=== PATIENT | male | born 1985 | race Caucasian/White ===

== ENCOUNTER 2018-05-26 10:32 | Emergency (ER) | payer OTHER ==
[~2018-05-26] VITALS: Ht 165.1 cm; Wt 100.3 kg
[2018-05-26 10:44] VITALS: Ht 165.1 cm; Wt 100.3 kg
[2018-05-26] MEDS ORDERED: ONDA8TAB14 PO (13:28)
[2018-05-26] MEDS ORDERED: ACET500C5 PO (13:28)
[2018-05-26 13:40] VITALS: BP 131/76; PULSE 71; RESP 16
--- NOTE | 2018-05-26 14:32 | ERD ---
ER Documentation Chief Complaint Chief Complaint fever and bodyache x 3 days HPI 32-year-old male presents with complaint of subjective fevers body aches, and 2 episodes of vomiting yesterday. States that he had a fevers and body aches for 3 days. He took Tylenol, last dose was yesterday. Denies any abdominal pain, diarrhea, constipation. ROS All systems reviewed and are negative except as per history of present illness. Medications Home Meds Active Scripts Ondansetron (Ondansetron Odt) 8 Mg Tab.rapdis, 8 MG PO Q6H PRN for NAUSEA AND/OR VOMITING, #10 TAB Prov:MATTHEWKATARZYNABLANQUITA RODRIGUEZ 05/26/18 Acetaminophen* (Tylophen*) 500 Mg Capsule, 2 CAP PO Q8H PRN for PAIN AND OR ELEVATED TEMP, #20 CAP Prov:BLANQUITA TORRES 05/26/18 Allergies Allergies: Coded Allergies: No Known Allergy (Unverified , 05/26/18) PMhx/Soc Medical and Surgical Hx: pt denies Medical Hx, pt denies Surgical Hx Hx Alcohol Use: No Hx Substance Use: No Hx Tobacco Use: No FmHx Family History: No diabetes, No coronary disease, No other Physical Exam Vitals Vital Signs Date Temp Pulse Resp B/P (MAP) Pulse Ox O2 O2 Flow FiO2 Time Delivery Rate 05/26/18 98.4 71 16 131/76 97 Room Air 13:40 (94) 05/26/18 98.4 99 17 149/82 100 10:44 (104) Physical Exam Const: No acute distress Head: Atraumatic Eyes: Normal Conjunctiva ENT: Normal External Ears, Nose and Mouth. Neck: Full range of motion. No meningismus. Resp: Clear to auscultation bilaterally Cardio: Regular rate and rhythm, no murmurs Abd: Soft, non tender, non distended. Normal bowel sounds. No McBurney's point tenderness. Patient able to jump up and down on exam. Skin: No petechiae or rashes Back: No midline or flank tenderness Ext: No cyanosis, or edema Neur: Awake and alert Psych: Normal Mood and Affect Procedures/MDM Patient's presentation is consistent with viral gastroenteritis. I have low suspicion for appendicitis due to patient history and exam, including normal abdominal exam, lack of McBurney's point tenderness and ability of patient to jump up and down on exam. I have low suspicion for volvulus or obstruction due patient history and exam, including lack of history of biliary emesis and normal physical exam. . I have low suspicion of invasive diarrhea due to patient history and exam, including lack of hematochezia. I have low suspicion for dehydration due to moist and pink mucous membranes, patients non lethargic state, , and normal cap refill. I have low suspicion of DKA based on patient history and exam,. I have low suspicion for adrenal crisis, AAA, mesenteric ischemia, pyelonephritis, cholecystitis, aortic dissection, ectopic, KS, pneumonia, acute pancreatitis, PID, or other emergent causes based on patient history and exam. Most likely diagnosis is viral gastritis. Based on these findings I do not feel that additional labs, imaging. or antibiotics are necessary. Patient discharged with Rx for Zofran and Tylenol. Patient was discharged with strict ER precautions. Patient was recommended to follow-up with PMD. All questions answered at discharge. Departure Diagnosis: Primary Impression: Gastroenteritis Condition: Stable Patient Instructions: Gastroenteritis, Viral (6Y-Adult), Vomiting (6Y-Adult) Referrals: [facility] YOU HAVE RECEIVED A MEDICAL SCREENING EXAM AND THE RESULTS INDICATE THAT YOU DO NOT HAVE A CONDITION THAT REQUIRES URGENT TREATMENT IN THE EMERGENCY DEPARTMENT. FURTHER EVALUATION AND TREATMENT OF YOUR CONDITION CAN WAIT UNTIL YOU ARE SEEN IN YOUR DOCTORS OFFICE WITHIN THE NEXT 1-2 DAYS. IT IS YOUR RESPONSIBILITY TO MAKE AN APPOINTMENT FOR FOLOW-UP CARE. IF YOU HAVE A PRIMARY DOCTOR --you should call your primary doctor and schedule an appointment IF YOU DO NOT HAVE A PRIMARY DOCTOR YOU CAN CALL OUR PHYSICIAN REFERRAL HOTLINE AT IF YOU CAN NOT AFFORD TO SEE A PHYSICIAN YOU CAN CHOSE FROM THE FOLLOWING [facility] [address] [facility] [address] [facility] [facility] [address] [facility] [address] [facility] [address] [facility]. [facility]. [address] Additional Instructions: FOLLOW UP WITH YOUR PRIMARY CARE PHYSICIAN TOMORROW.Return to this facility if you are not improving as expected. BLANQUITA TORRES May 26, 2018 14:32
== END 2018-05-26 13:40 | disposition home or self-care (01) ==
LOC: FTE 10:32
DX: K52.9 Noninfective gastroenteritis and colitis, unspecified (principal)
CPT/HCPCS: 99283

== ENCOUNTER 2018-09-21 09:05 | Inpatient (IN) | payer OTHER ==
[~2018-09-21] VITALS: Ht 170.2 cm; Wt 97.5 kg
[~2018-09-21 09:05] MED LIST: ACET500C5 PO; ASA400 PO; BUDE3CAP PO; CYCL10TA7 PO; DOXY100T20 PO; FER325 PO; IBUP-1542 PO; ONDA8TAB14 PO; PANT40TA3 PO; WORK NOTE
[2018-09-21] MEDS ORDERED: SOD CHLORIDE 0.9% 1,000 ML IV STA (09:24)
[2018-09-21] MEDS ORDERED: PANTOPRAZOLE IV 80 MG in SOD CHLORIDE 0.9% 100 ML IV STA (10:55)
[2018-09-21] MEDS ORDERED: PANTOPRAZOLE IV 80 MG in SOD CHLORIDE 0.9% 100 ML IVPB STA (10:55)
--- NOTE | 2018-09-21 11:10 | ERD ---
ER Documentation Chief Complaint Chief Complaint feels weak, sick and appears pale, diarrhea x 1 week HPI Patient is a history of gastric ulcers requiring transfusion. Patient has recently not been taking any antacids and does take intermittent ibuprofen but not daily ibuprofen for the past 5 days patient has been feeling more weak. No shortness of breath no chest pain. Has had diarrhea for the past 2 days. Denies any blood in his stools denies any melena. No nausea or vomiting. No fevers or chills. ROS All systems reviewed and are negative except as per history of present illness. Medications Home Meds Active Scripts Ondansetron (Ondansetron Odt) 8 Mg Tab.rapdis, 8 MG PO Q6H PRN for NAUSEA AND/OR VOMITING, #10 TAB Prov:BLANQUITA TORRES 05/26/18 Acetaminophen* (Tylophen*) 500 Mg Capsule, 2 CAP PO Q8H PRN for PAIN AND OR ELEVATED TEMP, #20 CAP Prov:BLANQUITA TORRES 05/26/18 Allergies Allergies: Coded Allergies: No Known Allergy (Unverified , 05/26/18) PMhx/Soc Medical and Surgical Hx: pt denies Surgical Hx Hx Miscellaneous Medical Probl: Yes (Hx blood transfusion) Hx Alcohol Use: No Hx Substance Use: No Hx Tobacco Use: No Smoking Status: Never smoker Physical Exam Vitals Vital Signs Date Temp Pulse Resp B/P (MAP) Pulse Ox O2 O2 Flow FiO2 Time Delivery Rate 09/21/18 98.8 64 24 118/62 99 11:02 (80) 09/21/18 99.4 112 24 124/88 99 09:08 (100) Physical Exam Const: No acute distress. Appears pale Head: Atraumatic Eyes: Normal Conjunctiva ENT: Normal External Ears, Nose and Mouth. Neck: Full range of motion. No meningismus. Resp: Clear to auscultation bilaterally Cardio: Regular rate and rhythm, no murmurs Abd: Soft, non tender, non distended. Normal bowel sounds Skin: No petechiae or rashes Back: No midline or flank tenderness Ext: No cyanosis, or edema Neur: Awake and alert Psych: Normal Mood and Affect Result Diagram: 09/21/18 0939 09/21/18 0901 Results 24 hrs Laboratory Tests Test 09/21/18 09:38 7/31/19 09:39 09/21/18 09:41 Sodium Level 141 mmol/L Potassium Level 3.6 mmol/L Chloride Level 105 mmol/L Carbon Dioxide Level 27 mmol/L Anion Gap 9 Blood Urea Nitrogen 6 mg/dl Creatinine 0.90 mg/dl Est Glomerular Filtrat > 60 mL/min Rate mL/min Glucose Level 105 mg/dl Calcium Level 9.0 mg/dl Total Bilirubin 0.6 mg/dl Direct Bilirubin 0.00 mg/dl Indirect Bilirubin 0.6 mg/dl Aspartate Amino 15 IU/L Transf (AST/SGOT) Alanine 10 IU/L Aminotransferase (ALT/SGPT) Alkaline Phosphatase 60 IU/L Total Protein 6.9 g/dl Albumin 3.7 g/dl Globulin 3.20 g/dl Albumin/Globulin Ratio 1.15 Lipase 1406 U/L White Blood Count 10.7 10^3/ul Red Blood Count 4.04 10^6/ul Hemoglobin 5.0 g/dl Hematocrit 21.0 % Mean Corpuscular Volume 52.0 fl Mean Corpuscular Hemoglobin 12.4 pg Mean Corpuscular 23.8 g/dl Hemoglobin Concent Red Cell Distribution Width 25.4 % Platelet Count 548 10^3/UL Mean Platelet Volume 8.2 fl Immature Granulocytes % 0.300 % Neutrophils % 68.5 % Segmented Neutrophils % (Manual) 66 % Band Neutrophils % (Manual) 1 % Lymphocytes % 15.3 % Lymphocytes % (Manual) 17 % Monocytes % 7.5 % Monocytes % (Manual) 5 % Eosinophils % 7.9 % Eosinophils % (Manual) 9 % Basophils % 0.5 % Basophils % (Manual) 1 % Metamyelocytes % (manual) 1 % Nucleated Red Blood Cells % 1 % Immature Granulocytes # 0.030 10^3/ul Neutrophils # 7.3 10^3/ul Neutrophils # (Manual) 7.1 10^3/ul Band Neutrophils # 0.1 10^3/ul Lymphocytes (Manual) 1.8 10^3/ul Lymphocytes # 1.6 10^3/ul Monocytes # 0.8 10^3/ul Monocytes # (Manual) 0.5 10^3/ul Eosinophils # 0.8 10^3/ul Basophils # 0.1 10^3/ul Basophils # (Manual) 0.1 10^3/ul Metamyelocytes # 0.1 10^3/ul Nucleated Red Blood Cells # 0.1 10^3/ul Pathologist Review (Hematology) YES Platelet Estimate INCREASED Giant Platelets 1 % Polychromasia 1+ Hypochromasia 3+ Poikilocytosis 2+ Anisocytosis 3+ Microcytosis 3+ Tear Drop Cells 1+ Elliptocytes 1+ Schistocytes 1+ Urine Color YELLOW Urine Clarity SLIGHTLY CLOUDY Urine pH 6.0 Urine Specific [place] 1.016 Urine Ketones NEGATIVE mg/dL Urine Nitrite NEGATIVE mg/dL Urine Bilirubin NEGATIVE mg/dL Urine Urobilinogen NEGATIVE mg/dL Urine Leukocyte Esterase NEGATIVE Nancy/ul Urine Microscopic RBC 1 /HPF Urine Microscopic WBC 3 /HPF Urine Mucus MANY /HPF Urine Hemoglobin NEGATIVE mg/dL Urine Glucose NEGATIVE mg/dL Urine Total Protein NEGATIVE mg/dl Current Medications Medications Dose Sig/Clara Start Time Status Last (Trade) Ordered Route PRN Stop Time Admin Dose Reason Admin Sodium 1,000 ml @ Q1H STAT 09/21/18 DC 09/21/18 Chloride 1,000 mls/hr IV 09:24 09:40 09/21/18 10:23 Pantoprazole 100 ml @ ONCE STAT 09/21/18 80 mg/Sodium 400 mls/hr IVPB 10:55 Chloride 09/21/18 11:09 Pantoprazole 100 ml @ ONCE STAT 09/21/18 80 mg/Sodium 10 mls/hr IV 10:55 Chloride 09/21/18 20:54 Procedures/MDM Patient presenting with sensation of feeling feeling weak without any chest pain. Labs show acute anemia hemoglobin of 5. Patient is hemodynamically stable. Concerning for upper GI bleed given history of gastric ulcers. Will transfuse 2 units, give Protonix IV bolus and drip. Will admit for endoscopy an d further evaluation. Low suspicion for cirrhosis given history and exam. Low suspicion for mesenteric ischemia, or intra-abdominal infection. Low suspicion for cardiopulmonary cause of symptoms. Departure Diagnosis: Primary Impression: Anemia Patient Instructions: Anemia Referrals: [facility] YOU HAVE RECEIVED A MEDICAL SCREENING EXAM AND THE RESULTS INDICATE THAT YOU DO NOT HAVE A CONDITION THAT REQUIRES URGENT TREATMENT IN THE EMERGENCY DEPARTMENT. FURTHER EVALUATION AND TREATMENT OF YOUR CONDITION CAN WAIT UNTIL YOU ARE SEEN IN YOUR DOCTORS OFFICE WITHIN THE NEXT 1-2 DAYS. IT IS YOUR RESPONSIBILITY TO MAKE AN APPOINTMENT FOR FOLOW-UP CARE. IF YOU HAVE A PRIMARY DOCTOR --you should call your primary doctor and schedule an appointment IF YOU DO NOT HAVE A PRIMARY DOCTOR YOU CAN CALL OUR PHYSICIAN REFERRAL HOTLINE AT IF YOU CAN NOT AFFORD TO SEE A PHYSICIAN YOU CAN CHOSE FROM THE FOLLOWING [facility] [address] [facility] [address] [facility] [address] [facility] [address] [facility] [address] [facility]. [facility]. [address] ADILENE ROSS MD Sep 21, 2018 11:10
[2018-09-21] MEDS ORDERED: ONDANSETRON 4 MG INJ IV PRN ×2 (13:00→14:00)
[2018-09-21] MEDS ORDERED: ACETAMINOPHEN 325 MG TAB PO PRN ×2 (13:00→14:00)
--- NOTE | 2018-09-21 13:49 | HP ---
Date/Time of Note Date/Time of Note DATE: 09/21/18 TIME: 13:44 Assessment/Plan VTE Prophylaxis SCD applied (from Nsg): Yes Pharmacological prophylaxis: NA/contraindicated Pharm contraindication: low risk/ambulating Lines/Catheters IV Catheter Type (from Nrsg): Saline Lock Assessment/Plan Hospital Course SUBJECTIVE: Lying in bed comfortably. Complains of diarrhea. No abdominal pain, nausea, vomiting, fevers, chills. No overt GI bleeding signs. OBJECTIVE: Vital signs-see below PHYSICAL EXAM: Constitutional: Adequately built,not in acute distress. HEENT: Head atraumatic and normocephalic. Eyes: Extraocular muscles intact. Anicteric sclerae. Pupils equal bilaterally, reactive to light. NECK: Supple without lymph node. CHEST: Clear and good breath sounds equally. No wheezing. No rhonchi. HEART: S1, S2. Regular rate and rhythm. ABDOMEN: Soft/non tender with no rebound tenderness. Bowel sounds were present. EXTREMITIES: No cyanosis, clubbing or edema. NEUROLOGIC: Alert and oriented x3. No focal deficit. No sensory deficit. PSYCHOSOCIAL: No signs of depression. INTEGUMENTARY: No open wounds. ASSESSMENT AND PLAN:33 yo w/no pmh admitted with generalized weakness x5 days followed by diarrhea x2 days, found to have severe anemia and elevated lipase... Symptomatic anemia:Differential diagnoses includes: decreased production, sequestration, destruction/loss. At this time most concerning is severe iron deficiency versus occult GI blood loss given the patients microcytic indices. Plan: Transfuse 2 units PRBC. Check FE studies and start iron supplementation accordingly stool OB Follow serial HCT (check daily) GI consult as needed Empiric PPI ?Pancreatitis -Patient has elevated lipase. No abdominal pain. -Go ahead and obtain a CT abdomen and pelvis -N.p.o. -IV fluids Diarrhea -Rule out infectious diarrhea versus others -Stool studies -No fevers or leukocytosis, as such we will hold off to antimicrobials. DVT prophylaxis: SCDs PUD prophylaxis: PPI Rest of the management depend on hospital course. Approximately 60 m spent on this history and physical. Patient was seen in collaboration with Dr. Bee. Result Diagram: 09/21/18 0939 09/21/18 0938 Results 24hrs Laboratory Tests Test 09/21/18 09:38 09/21/18 09:39 09/21/18 09:41 Sodium Level 141 Potassium Level 3.6 Chloride Level 105 Carbon Dioxide Level 27 Anion Gap 9 Blood Urea Nitrogen 6 L Creatinine 0.90 Est Glomerular Filtrat > 60 Rate mL/min Glucose Level 105 Calcium Level 9.0 Total Bilirubin 0.6 Direct Bilirubin 0.00 Indirect Bilirubin 0.6 Aspartate Amino 15 Transf (AST/SGOT) Alanine 10 L Aminotransferase (ALT/SGPT) Alkaline Phosphatase 60 Total Protein 6.9 Albumin 3.7 Globulin 3.20 Albumin/Globulin Ratio 1.15 Lipase 1406 H White Blood Count 10.7 Red Blood Count 4.04 L Hemoglobin 5.0 *L Hematocrit 21.0 L Mean Corpuscular Volume 52.0 L Mean Corpuscular Hemoglobin 12.4 L Mean Corpuscular 23.8 L Hemoglobin Concent Red Cell Distribution Width 25.4 H Platelet Count 548 H Mean Platelet Volume 8.2 Immature Granulocytes % 0.300 Neutrophils % 68.5 Segmented Neutrophils 66 % (Manual) Band Neutrophils % (Manual) 1 Lymphocytes % 15.3 Lymphocytes % (Manual) 17 Monocytes % 7.5 Monocytes % (Manual) 5 Eosinophils % 7.9 H Eosinophils % (Manual) 9 H Basophils % 0.5 Basophils % (Manual) 1 Metamyelocytes % (manual) 1 H Nucleated Red Blood Cells % 1 H Immature Granulocytes # 0.030 Neutrophils # 7.3 Neutrophils # (Manual) 7.1 Band Neutrophils # 0.1 Lymphocytes (Manual) 1.8 Lymphocytes # 1.6 Monocytes # 0.8 Monocytes # (Manual) 0.5 Eosinophils # 0.8 H Basophils # 0.1 Basophils # (Manual) 0.1 H Metamyelocytes # 0.1 H Nucleated Red Blood Cells # 0.1 H Pathologist YES Review (Hematology) Platelet Estimate INCREASED Giant Platelets 1 H Polychromasia 1+ Hypochromasia 3+ Poikilocytosis 2+ Anisocytosis 3+ Microcytosis 3+ Tear Drop Cells 1+ Elliptocytes 1+ Schistocytes 1+ Urine Color YELLOW Urine Clarity SLIGHTLY CLOUDY A Urine pH 6.0 Urine Specific [place] 1.016 Urine Ketones NEGATIVE Urine Nitrite NEGATIVE Urine Bilirubin NEGATIVE Urine Urobilinogen NEGATIVE Urine Leukocyte Esterase NEGATIVE Urine Microscopic RBC 1 Urine Microscopic WBC 3 Urine Mucus MANY A Urine Hemoglobin NEGATIVE Urine Glucose NEGATIVE Urine Total Protein NEGATIVE HPI/ROS Admit Date/Time Admit Date/Time Hx of Present Illness This is a 33-year-old male with a history of gastroesophageal reflux disease, presented to the emergency room with generalized weakness x5-day duration with intermittent nonbloody diarrhea. Patient denied nausea, vomiting, abdominal pain, loss of appetite, hematochezia, hematemesis, hemoptysis, melena . Patient also denied chest pain, shortness of breath, palpitation, dizziness, loss of consciousness, numbness, tingling, fever, chills, recent travel or contact with sick people. In the emergency room, patient's vital signs stable except for initially elevated pulse rate 112 which then normalized to 60s. Labs showed hemoglobin 5.0, hematocrit 21.0 with microcytic indicis, platelet 548 and lipase 1406. In ER, patient was given IV fluids and 2 units of PRBC has been ordered. ROS A 12 point review of system was assessed and is negative other than what is men tioned in the HPI. PMH/Family/Social Past Medical History See HPI Medications Current Medications Pantoprazole 80 mg/Sodium Chloride 100 ml @ 10 mls/hr ONCE STAT IV Last administered on 09/21/18at 12:00; Admin Dose 10 MLS/HR; Start 09/21/18 at 10:55; Stop 09/21/18 at 20:54 Ondansetron HCl (Zofran Inj) 4 mg ER BRIDGE PRN IV NAUSEA/VOMITING; Start 09/21/18 at 13:00; Stop 09/22/18 at 12:59 Acetaminophen (Tylenol Tab) 650 mg ER BRIDGE PRN PO .MILD PAIN 1-3 OR TEMP; Start 09/21/18 at 13:00; Stop 09/22/18 at 12:59 Coded Allergies: No Known Allergy (Unverified , 09/21/18) Past Surgical History None Social History Denied history of alcohol, smoking or illicit drug use Smoking Status: Never smoker Exam/Review of Systems Vital Signs Vitals Vital Signs Date Temp Pulse Resp B/P (MAP) Pulse Ox O2 O2 Flow FiO2 Time Delivery Rate 09/21/18 98.3 74 24 112/58 99 Room Air 13:20 (76) RON PIERCE NP Sep 21, 2018 13:49
[2018-09-21] MEDS ORDERED: NACL 0.9% 3 ML SYG IV SCH (14:00)
--- NOTE | 2018-09-21 16:25 | CONS ---
Assessment/Plan Assessment/Plan Hospital Course (Demo Recall) Summary Assessment and Plan: Assessment: Severe iron deficiency anemia Diarrhea Weakness secondary to above Thrombocytosis likely reactive Elevated lipase Excessive weight loss- 80+ lbs in 7 months Plan: Clear liquid diet ESR/CRP- given sx- consider IBD? Monitor H/H transfuse as needed Monitor Lipase Allow Hgb to improve with plan to prep tomorrow for EGD/colonoscopy Wednesday Endoscopy - risks/benefits/alternatives/indications of procedure and sedation/anesthesia discussed with patient who states understanding and gives informed consent to proceed. Patient seen in collaboration with Dr. Dial CC: KIMANI DIAL MD ; Consultation Date/Type/Reason Admit Date/Time Date/Time of Note DATE: 09/21/18 TIME: 16:14 Hx of Present Illness This is a 33-year-old male with past medical history of anemia diagnosed about 1 to 2 years ago who presented to the hospital with complaints of generalized weakness and watery diarrhea going up to 4-5 episodes per day for the past week. Work-up hematology shows severe microcytic anemia with a hemoglobin of 5.0 he is status post 2 units packed RBCs and a chemistry panel shows relatively normal LFTs, lipase is elevated at 1406 and an iron panel shows severe iron deficiency. GI has been consulted for further evaluation regarding anemia evaluation p atient denies nausea/vomiting or abdominal pain. Dates he was previously evaluated about 1 to 2 years ago he states he is never had an upper endoscopy or colonoscopy. With further evaluation patient denies any overt signs of GI bleed including melena, hematochezia or hematemesis patient states he has lost about 80 pounds in the past 7 months although he contributed to a change in diet. At time of evaluation patient denies nausea/vomiting or abdominal pain. Given age and symptoms one must rule out inflammatory bowel disease i.e. Crohn's disease we will order CRP and ESR about hemoglobin to improve her transfusions and plan to proceed with endoscopic evaluation on Wednesday with EGD and colonoscopy. Past Medical History Home Meds Discontinued Scripts Ondansetron (Ondansetron Odt) 8 Mg Tab.rapdis, 8 MG PO Q6H PRN for NAUSEA AND/OR VOMITING, #10 TAB Prov:BLANQUITA TORRES 05/26/18 Acetaminophen* (Tylophen*) 500 Mg Capsule, 2 CAP PO Q8H PRN for PAIN AND OR ELEVATED TEMP, #20 CAP Prov:BLANQUITA TORRES 05/26/18 Medications Current Medications Pantoprazole 80 mg/Sodium Chloride 100 ml @ 10 mls/hr ONCE STAT IV Last administered on 09/21/18at 12:00; Admin Dose 10 MLS/HR; Start 09/21/18 at 10:55; Stop 09/21/18 at 20:54 IV Flush (NS 3 ml) 3 ml PER PROTOCOL IV ; Start 09/21/18 at 14:00 Ondansetron HCl (Zofran Inj) 4 mg Q6H PRN IV NAUSEA/VOMITING; Start 09/21/18 at 14:00 Acetaminophen (Tylenol Tab) 650 mg Q6H PRN PO .PAIN 1-3 OR TEMP; Start 09/21/18 at 14:00 Pantoprazole (Protonix Iv) 40 mg BID@06,18 IV ; Start 09/21/18 at 18:00 Sodium Chloride 1,000 ml @ 80 mls/hr [id number] IV ; Start 09/21/18 at 14:00 Ferric Sodium Gluconate Complex 125 mg/Sodium Chloride 110 ml @ 110 mls/hr DAILY@1300 IVPB ; Start 09/22/18 at 13:00; Stop 09/26/18 at 13:59 Ferric Sodium Gluconate Complex 125 mg/Sodium Chloride 100 ml @ 100 mls/hr ONCE ONCE IVPB ; Start 09/21/18 at 16:30; Stop 09/21/18 at 17:29 Allergies: Coded Allergies: No Known Allergy (Unverified , 09/21/18) Social History Smoking Status: Never smoker Exam/Review of Systems Exam Vitals Vital Signs Date Temp Pulse Resp B/P (MAP) Pulse Ox O2 O2 Flow FiO2 Time Delivery Rate 09/21/18 98.4 86 17 118/78 99 Room Air 14:30 (91) Exam PHYSICAL EXAMINATION: GENERAL: Pale, alert & oriented x 3, in no acute distress SKIN: No lesions HEAD: Normocephalic, atraumatic, no tenderness. EYES: Pupils equal reactive to light and accommodation, no discharge. EARS/NOSE AND THROAT: Ears normal, nose normal. NECK: Supple, no masses. CHEST: Inspection within normal limits. CARDIOVASCULAR: Heart: Regular rate and rhythm, no murmurs, gallops or rubs. Peripheral pulses present within normal limits, no cyanosis, clubbing or edemas. No pulsatile abdominal mass RESPIRATORY: Lungs clear to auscultation GASTROINTESTINAL AND LIVER: Abdomen: Soft, non tenderness, non-distended, no hernias, no masses, no organomegaly, no ascites, no guarding, no rebound tenderness, normoactive bowel sounds. Rectal: Deferred EXTREMITIES: No cyanosis, clubbing or edema. Results Result Diagram: 09/21/18 0939 09/21/18 0938 Results 24hrs Laboratory Tests Test 09/21/18 09:36 09/21/18 09:38 09/21/18 09:39 09/21/18 09:41 Hemoglobin A1c Iron Level 10 L Total Iron 413 Binding Capacity Percent Iron 2 L Saturation Triglycerides 91 Level Cholesterol Level 98 L LDL Cholesterol, 57 Calculated HDL Cholesterol 23 L Cholesterol/HDL 4.2 Ratio Sodium Level 141 Potassium Level 3.6 Chloride Level 105 Carbon Dioxide 27 Level Anion Gap 9 Blood Urea 6 L Nitrogen Creatinine 0.90 Est Glomerular > 60 Filtrat Rate mL/min Glucose Level 105 Calcium Level 9.0 Total Bilirubin 0.6 Direct Bilirubin 0.00 Indirect 0.6 Bilirubin Aspartate Amino 15 Transf (AST/SGOT) Alanine 10 L Aminotransferase (ALT/SGPT) Alkaline 60 Phosphatase Total Protein 6.9 Albumin 3.7 Globulin 3.20 Albumin/Globulin 1.15 Ratio Lipase 1406 H White Blood Count 10.7 Red Blood Count 4.04 L Hemoglobin 5.0 *L Hematocrit 21.0 L Mean Corpuscular 52.0 L Volume Mean Corpuscular 12.4 L Hemoglobin Mean Corpuscular 23.8 L Hemoglobin Concen t Red Cell 25.4 H Distribution Width Platelet Count 548 H Mean Platelet 8.2 Volume Immature 0.300 Granulocytes % Neutrophils % 68.5 Segmented 66 Neutrophils % (Manual) Band Neutrophils 1 % (Manual) Lymphocytes % 15.3 Lymphocytes % 17 (Manual) Monocytes % 7.5 Monocytes % 5 (Manual) Eosinophils % 7.9 H Eosinophils % 9 H (Manual) Basophils % 0.5 Basophils % 1 (Manual) Metamyelocytes % 1 H (manual) Nucleated Red 1 H Blood Cells % Immature 0.030 Granulocytes # Neutrophils # 7.3 Neutrophils # 7.1 (Manual) Band Neutrophils 0.1 # Lymphocytes 1.8 (Manual) Lymphocytes # 1.6 Monocytes # 0.8 Monocytes # 0.5 (Manual) Eosinophils # 0.8 H Basophils # 0.1 Basophils # 0.1 H (Manual) Metamyelocytes # 0.1 H Nucleated Red 0.1 H Blood Cells # Pathologist YES Review (Hematolog y) Platelet Estimate INCREASED Giant Platelets 1 H Polychromasia 1+ Hypochromasia 3+ Poikilocytosis 2+ Anisocytosis 3+ Microcytosis 3+ Tear Drop Cells 1+ Elliptocytes 1+ Schistocytes 1+ Amylase Level 236 H Urine Color YELLOW Urine Clarity SLIGHTLY CLOUDY A Urine pH 6.0 Urine Specific 1.016 [place] Urine Ketones NEGATIVE Urine Nitrite NEGATIVE Urine Bilirubin NEGATIVE Urine NEGATIVE Urobilinogen Urine Leukocyte NEGATIVE Esterase Urine Microscopic 1 RBC Urine Microscopic 3 WBC Urine Mucus MANY A Urine Hemoglobin NEGATIVE Urine Glucose NEGATIVE Urine Total NEGATIVE Protein Medications Medication Current Medications Pantoprazole 80 mg/Sodium Chloride 100 ml @ 10 mls/hr ONCE STAT IV Last administered on 09/21/18at 12:00; Admin Dose 10 MLS/HR; Start 09/21/18 at 10:55; Stop 09/21/18 at 20:54 IV Flush (NS 3 ml) 3 ml PER PROTOCOL IV ; Start 09/21/18 at 14:00 Ondansetron HCl (Zofran Inj) 4 mg Q6H PRN IV NAUSEA/VOMITING; Start 09/21/18 at 14:00 Acetaminophen (Tylenol Tab) 650 mg Q6H PRN PO .PAIN 1-3 OR TEMP; Start 09/21/18 at 14:00 Pantoprazole (Protonix Iv) 40 mg BID@06,18 IV ; Start 09/21/18 at 18:00 Sodium Chloride 1,000 ml @ 80 mls/hr [id number] IV ; Start 09/21/18 at 14:00 Ferric Sodium Gluconate Complex 125 mg/Sodium Chloride 110 ml @ 110 mls/hr DAILY@1300 IVPB ; Start 09/22/18 at 13:00; Stop 09/26/18 at 13:59 Ferric Sodium Gluconate Complex 125 mg/Sodium Chloride 100 ml @ 100 mls/hr ONCE ONCE IVPB ; Start 09/21/18 at 16:30; Stop 09/21/18 at 17:29 PAL HOOPER Sep 21, 2018 16:25
[2018-09-21] MEDS ORDERED: SOD FERRIC GLUC COMPLX 125 MG in SOD CHLORIDE 0.9% 100 ML IVPB ONE (16:30)
[2018-09-21 17:29] VITALS: BP 118/66; PULSE 96; RESP 18
[2018-09-21] MEDS: SOD CHLORIDE 0.9% 1,000 ML IV SCH (17:30)
[2018-09-21 17:38] VITALS: Ht 170.2 cm; Wt 97.5 kg
[2018-09-21] MEDS: PANTOPRAZOLE 40 MG INJ IV SCH (17:56)
[2018-09-21 19:46] VITALS: BP 119/71; PULSE 93; RESP 20
[2018-09-21 20:00] VITALS: BP 119/71; PULSE 93; RESP 20
[2018-09-21 23:48] VITALS: BP 118/72; PULSE 92; RESP 20
[2018-09-22] VITALS: BP 118/72; PULSE 92; RESP 20
[2018-09-22] MEDS: SOD CHLORIDE 0.9% 1,000 ML IV SCH ×2 (02:30→15:04)
[2018-09-22 03:55] VITALS: BP 109/65; PULSE 89; RESP 20
[2018-09-22] MEDS: PANTOPRAZOLE 40 MG INJ IV SCH ×2 (05:59→18:10)
[2018-09-22 07:34] VITALS: BP 118/63; PULSE 78; RESP 18
[2018-09-22] MEDS ORDERED: SOD CHLORIDE 0.9% 100 ML ONE (09:04)
[2018-09-22] MEDS ORDERED: IOHEXOL 300MG/ML 150 ML BTL ONE (09:04)
--- NOTE | 2018-09-22 11:00 | PN ---
Date/Time of Note Date/Time of Note DATE: 09/22/18 TIME: 10:57 Assessment/Plan VTE Prophylaxis [place] [facility] [place] risk: 1 SCD applied [place] [facility] [place] No SCD contraindicated: low risk/ambulating Pharmacological prophylaxis: NA/contraindicated Pharm contraindication: low risk/ambulating Lines/Catheters IV Catheter Type (from [facility]): Peripheral IV Urinary Cath still in place: No Assessment/Plan Hospital Course SUBJECTIVE: No acute events. OBJECTIVE: Vital signs-see below PHYSICAL EXAM: Constitutional: Adequately built,not in acute distress. HEENT: Head atraumatic and normocephalic. Eyes: Extraocular muscles intact. Anicteric sclerae. Pupils equal bilaterally, reactive to light. NECK: Supple without lymph node. CHEST: Clear and good breath sounds equally. No wheezing. No rhonchi. HEART: S1, S2. Regular rate and rhythm. ABDOMEN: Soft/non tender with no rebound tenderness. Bowel sounds were present. EXTREMITIES: No cyanosis, clubbing or edema. NEUROLOGIC: Alert and oriented x3. No focal deficit. No sensory deficit. PSYCHOSOCIAL: No signs of depression. INTEGUMENTARY: No open wounds. ASSESSMENT AND PLAN:33 yo w/no pmh admitted with generalized weakness x5 days followed by diarrhea x2 days, found to have severe anemia and elevated lipase... Symptomatic anemia:Differential diagnoses includes: decreased production, sequestration, destruction/loss. At this time most concerning is severe iron deficiency versus occult GI blood loss given the patients microcytic indices. -s/p 2 units PRBC-with improved H&H -FE studies noted and on IV Ferrlecit -stool OB-pending -Follow serial HCT (check daily) -Empiric PPI -Follow-up EGD/colonoscopy findings. Pancreatitis -pending CT abdomen and pelvis -cont. N.p.o, IV fluids Diarrhea,likely from pancreatitis? -Rule out infectious diarrhea versus others -f/u Stool studies -No fevers or leukocytosis, as such we will hold off to antimicrobials. DVT prophylaxis: SCDs PUD prophylaxis: PPI Disposition: Follow-up EGD/colonoscopy findings. Follow-up stool studies. Transfer patient to medical surgical floor. Patient was seen in collaboration with Dr. Bee. Result Diagram: 09/22/18 0608 09/22/18 0607 Results 24hrs Laboratory Tests Test 09/21/18 18:41 09/21/18 18:46 09/22/18 06:07 09/22/18 06:08 Hemoglobin 6.1 #*L 7.5 #L Hematocrit 23.5 L 26.8 L Erythrocyte 35 H Sedimentation Rate C-Reactive Protein 6.7 H Sodium Level 142 Potassium Level 3.8 Chloride Level 108 Carbon Dioxide Level 24 Anion Gap 10 Blood Urea Nitrogen 5 L Creatinine 0.83 Est Glomerular Filtrat > 60 Rate mL/min Glucose Level 85 Calcium Level 8.4 Magnesium Level 2.2 Total Bilirubin 0.8 Direct Bilirubin 0.00 Indirect Bilirubin 0.8 Aspartate Amino 25 # Transf (AST/SGOT) Alanine 21 Aminotransferase (ALT/ SGPT) Alkaline Phosphatase 57 Total Protein 6.4 Albumin 3.2 L Globulin 3.20 Albumin/Globulin Ratio 1.00 Lipase 1776 H White Blood Count 8.1 # Red Blood Count 4.33 L Mean Corpuscular 61.9 L Volume Mean Corpuscular 17.3 #L Hemoglobin Mean Corpuscular 28.0 L Hemoglobin Concent Red Cell Distribution Width Platelet Count 428 #H Mean Platelet Volume Immature Granulocytes 0.100 % Neutrophils % 58.1 Lymphocytes % 21.5 Monocytes % 8.1 Eosinophils % 11.5 H Basophils % 0.7 Nucleated Red Blood 0.9 H Cells % Immature Granulocytes 0.010 # Neutrophils # 4.7 Lymphocytes # 1.7 Monocytes # 0.7 Eosinophils # 0.9 H Basophils # 0.1 Nucleated Red Blood 0.1 H Cells # Exam/Review of Systems Exam Vitals Vital Signs Date Temp Pulse Resp B/P (MAP) Pulse Ox O2 O2 Flow FiO2 Time Delivery Rate 09/22/18 98.3 78 18 118/63 97 Room Air 07:34 (81) Intake and Output 09/21/18 09/21/18 09/22/18 1515:00 23:00 07:00 IntakeIntake Total 1000 ml 100 ml 957 ml BalanceBalance 1000 ml 100 ml 957 ml Results Results 24hrs Laboratory Tests Test 09/21/18 18:41 09/21/18 18:46 09/22/18 06:07 09/22/18 06:08 Hemoglobin 6.1 #*L 7.5 #L Hematocrit 23.5 L 26.8 L Erythrocyte 35 H Sedimentation Rate C-Reactive Protein 6.7 H Sodium Level 142 Potassium Level 3.8 Chloride Level 108 Carbon Dioxide Level 24 Anion Gap 10 Blood Urea Nitrogen 5 L Creatinine 0.83 Est Glomerular Filtrat > 60 Rate mL/min Glucose Level 85 Calcium Level 8.4 Magnesium Level 2.2 Total Bilirubin 0.8 Direct Bilirubin 0.00 Indirect Bilirubin 0.8 Aspartate Amino 25 # Transf (AST/SGOT) Alanine 21 Aminotransferase (ALT/ SGPT) Alkaline Phosphatase 57 Total Protein 6.4 Albumin 3.2 L Globulin 3.20 Albumin/Globulin Ratio 1.00 Lipase 1776 H White Blood Count 8.1 # Red Blood Count 4.33 L Mean Corpuscular 61.9 L Volume Mean Corpuscular 17.3 #L Hemoglobin Mean Corpuscular 28.0 L Hemoglobin Concent Red Cell Distribution Width Platelet Count 428 #H Mean Platelet Volume Immature Granulocytes 0.100 % Neutrophils % 58.1 Lymphocytes % 21.5 Monocytes % 8.1 Eosinophils % 11.5 H Basophils % 0.7 Nucleated Red Blood 0.9 H Cells % Immature Granulocytes 0.010 # Neutrophils # 4.7 Lymphocytes # 1.7 Monocytes # 0.7 Eosinophils # 0.9 H Basophils # 0.1 Nucleated Red Blood 0.1 H Cells # Medications Medication Current Medications IV Flush (NS 3 ml) 3 ml PER PROTOCOL IV ; Start 09/21/18 at 14:00 Ondansetron HCl (Zofran Inj) 4 mg Q6H PRN IV NAUSEA/VOMITING; Start 09/21/18 at 14:00 Acetaminophen (Tylenol Tab) 650 mg Q6H PRN PO .PAIN 1-3 OR TEMP; Start 09/21/18 at 14:00 Pantoprazole (Protonix Iv) 40 mg BID@06,18 IV Last administered on 09/22/18at 05:59; Admin Dose 40 MG; Start 09/21/18 at 18:00 Sodium Chloride 1,000 ml @ 80 mls/hr [id number] IV Last administered on 09/21/18at 17:30; Admin Dose 80 MLS/HR; Start 09/21/18 at 14:00 Ferric Sodium Gluconate Complex 125 mg/Sodium Chloride 110 ml @ 110 mls/hr DAILY@1300 IVPB ; Start 09/22/18 at 13:00; Stop 09/26/18 at 13:59 RON PIERCE NP Sep 22, 2018 11:00
[2018-09-22 11:19] VITALS: BP 119/71; PULSE 77; RESP 18
[2018-09-22] MEDS ORDERED: BISACODYL (EC) 5 MG TAB PO ONE (12:30)
--- NOTE | 2018-09-22 12:41 | PN ---
Date/Time of Note Date/Time of Note DATE: 09/22/18 TIME: 12:15 Assessment/Plan VTE Prophylaxis Risk score (from [facility] [place] risk: 1 SCD applied (from [facility] [place] No SCD contraindicated: low risk/ambulating Pharmacological prophylaxis: NA/contraindicated Pharm contraindication: other (anemia ) Lines/Catheters IV Catheter Type (from [facility]): Peripheral IV Urinary Cath still in place: No Assessment/Plan Hospital Course Summary Assessment and Plan: Assessment: Severe iron deficiency anemia/Diarrhea -Ct- abd/pelvis - pancolitis, Rounded 3.8 cm mass-like structure with mild enhancement in the lumen of the mid sigmoid colon concerning for colonic mass/ polyp -Elevated ESR/CRP- query underlying IBD? Weakness secondary to above Thrombocytosis likely reactive Elevated lipase- increasing despite no abdominal pain Excessive weight loss- 80+ lbs in 7 months Hepatosplenomegaly. Plan: NPO except meds Prep today for EGD/colonoscopy tomorrow Monitor H/H transfuse as needed Endoscopy - risks/benefits/alternatives/indications of procedure and sedation/a nesthesia discussed with patient who states understanding and gives informed consent to proceed. Patient seen in collaboration with Dr. Dial Subjective/Free text: Course reviewed with nursing staff Patient interviewed and examined All labs, imaging and other results reviewed Pt with elevated CRP/ESR- No over night events, discussed findings of Ct scan and labs Discussed plan for EGD/colon tomorrow Pt verbalized understanding and is agreeable. Exam PHYSICAL EXAMINATION: GENERAL: Pale, alert & oriented x 3, in no acute distress SKIN: No lesions CHEST: Inspection within normal limits. CARDIOVASCULAR: Heart: Regular rate and rhythm, RESPIRATORY: Lungs clear to auscultation GASTROINTESTINAL AND LIVER: Abdomen: Soft, non tenderness, non-distended, no hernias, no masses, no organomegaly, no ascites, no guarding, no rebound tenderness, normoactive bowel sounds. Rectal: Deferred EXTREMITIES: No cyanosis, clubbing or edema. Result Diagram: 09/22/18 0608 09/22/18 0607 Results 24hrs Laboratory Tests Test 09/21/18 18:41 09/21/18 18:46 09/22/18 06:07 09/22/18 06:08 Hemoglobin 6.1 #*L 7.5 #L Hematocrit 23.5 L 26.8 L Erythrocyte 35 H Sedimentation Rate C-Reactive Protein 6.7 H Sodium Level 142 Potassium Level 3.8 Chloride Level 108 Carbon Dioxide Level 24 Anion Gap 10 Blood Urea Nitrogen 5 L Creatinine 0.83 Est Glomerular Filtrat > 60 Rate mL/min Glucose Level 85 Calcium Level 8.4 Magnesium Level 2.2 Total Bilirubin 0.8 Direct Bilirubin 0.00 Indirect Bilirubin 0.8 Aspartate Amino 25 # Transf (AST/SGOT) Alanine 21 Aminotransferase (ALT/ SGPT) Alkaline Phosphatase 57 Total Protein 6.4 Albumin 3.2 L Globulin 3.20 Albumin/Globulin Ratio 1.00 Lipase 1776 H White Blood Count 8.1 # Red Blood Count 4.33 L Mean Corpuscular 61.9 L Volume Mean Corpuscular 17.3 #L Hemoglobin Mean Corpuscular 28.0 L Hemoglobin Concent Red Cell Distribution Width Platelet Count 428 #H Mean Platelet Volume Immature Granulocytes 0.100 % Neutrophils % 58.1 Lymphocytes % 21.5 Monocytes % 8.1 Eosinophils % 11.5 H Basophils % 0.7 Nucleated Red Blood 0.9 H Cells % Immature Granulocytes 0.010 # Neutrophils # 4.7 Lymphocytes # 1.7 Monocytes # 0.7 Eosinophils # 0.9 H Basophils # 0.1 Nucleated Red Blood 0.1 H Cells # Exam/Review of Systems Exam Vitals Vital Signs Date Temp Pulse Resp B/P (MAP) Pulse Ox O2 O2 Flow FiO2 Time Delivery Rate 09/22/18 97.8 77 18 119/71 97 Room Air 11:19 (87) Intake and Output 09/21/18 09/21/18 09/22/18 1515:00 23:00 07:00 IntakeIntake Total 1000 ml 100 ml 957 ml BalanceBalance 1000 ml 100 ml 957 ml Results Results 24hrs Laboratory Tests Test 09/21/18 18:41 09/21/18 18:46 09/22/18 06:07 09/22/18 06:08 Hemoglobin 6.1 #*L 7.5 #L Hematocrit 23.5 L 26.8 L Erythrocyte 35 H Sedimentation Rate C-Reactive Protein 6.7 H Sodium Level 142 Potassium Level 3.8 Chloride Level 108 Carbon Dioxide Level 24 Anion Gap 10 Blood Urea Nitrogen 5 L Creatinine 0.83 Est Glomerular Filtrat > 60 Rate mL/min Glucose Level 85 Calcium Level 8.4 Magnesium Level 2.2 Total Bilirubin 0.8 Direct Bilirubin 0.00 Indirect Bilirubin 0.8 Aspartate Amino 25 # Transf (AST/SGOT) Alanine 21 Aminotransferase (ALT/ SGPT) Alkaline Phosphatase 57 Total Protein 6.4 Albumin 3.2 L Globulin 3.20 Albumin/Globulin Ratio 1.00 Lipase 1776 H White Blood Count 8.1 # Red Blood Count 4.33 L Mean Corpuscular 61.9 L Volume Mean Corpuscular 17.3 #L Hemoglobin Mean Corpuscular 28.0 L Hemoglobin Concent Red Cell Distribution Width Platelet Count 428 #H Mean Platelet Volume Immature Granulocytes 0.100 % Neutrophils % 58.1 Lymphocytes % 21.5 Monocytes % 8.1 Eosinophils % 11.5 H Basophils % 0.7 Nucleated Red Blood 0.9 H Cells % Immature Granulocytes 0.010 # Neutrophils # 4.7 Lymphocytes # 1.7 Monocytes # 0.7 Eosinophils # 0.9 H Basophils # 0.1 Nucleated Red Blood 0.1 H Cells # Medications Medication Current Medications IV Flush (NS 3 ml) 3 ml PER PROTOCOL IV ; Start 09/21/18 at 14:00 Ondansetron HCl (Zofran Inj) 4 mg Q6H PRN IV NAUSEA/VOMITING; Start 09/21/18 at 14:00 Acetaminophen (Tylenol Tab) 650 mg Q6H PRN PO .PAIN 1-3 OR TEMP; Start 09/21/18 at 14:00 Pantoprazole (Protonix Iv) 40 mg BID@06,18 IV Last administered on 09/22/18at 05:59; Admin Dose 40 MG; Start 09/21/18 at 18:00 Sodium Chloride 1,000 ml @ 80 mls/hr [id number] IV Last administered on 09/21/18at 17:30; Admin Dose 80 MLS/HR; Start 09/21/18 at 14:00 Ferric Sodium Gluconate Complex 125 mg/Sodium Chloride 110 ml @ 110 mls/hr DAILY@1300 IVPB ; Start 09/22/18 at 13:00; Stop 09/26/18 at 13:59 PAL HOOPER Sep 22, 2018 12:25
[2018-09-22] MEDS: SOD FERRIC GLUC COMPLX 125 MG in SOD CHLORIDE 0.9% 100 ML IVPB SCH (15:03)
[2018-09-22 15:40] VITALS: BP 117/74; PULSE 77; RESP 16
[2018-09-22] MEDS ORDERED: MAGNESIUM CITRATE 300 ML BTL PO ONE (17:30)
[2018-09-22] MEDS ORDERED: POLYETHYLENE GLYCOL 3350 119 GM POWDER PO ONE (18:30)
[2018-09-22 20:00] VITALS: BP 119/77; PULSE 81; RESP 18
[2018-09-23] VITALS (15 sets, daily range): BP systolic 108–131; BP diastolic 62–81; PULSE 75–123; RESP 16–25
[2018-09-23] MEDS: SOD CHLORIDE 0.9% 1,000 ML IV SCH ×3 (03:54→23:00)
[2018-09-23] MEDS ORDERED: POLYETHYLENE GLYCOL 3350 119 GM POWDER PO ONE (06:00)
[2018-09-23] MEDS: PANTOPRAZOLE 40 MG INJ IV SCH ×2 (06:26→18:30)
[2018-09-23] MEDS ORDERED: BISACODYL (EC) 5 MG TAB PO ONE (08:00)
--- NOTE | 2018-09-23 10:52 | PN ---
Date/Time of Note Date/Time of Note DATE: 09/23/18 TIME: 10:42 Assessment/Plan VTE Prophylaxis Risk score (from Ns)>0 risk: 4 SCD applied (from [facility] [place]): No SCD contraindicated: low risk/ambulating Pharmacological prophylaxis: NA/contraindicated Pharm contraindication: low risk/ambulating Lines/Catheters IV C[facility]ter Type (from [facility]): Peripheral IV Urinary Cath still in place: No Assessment/Plan Hospital Course SUBJECTIVE: No acute events. OBJECTIVE: Vital signs-see below PHYSICAL EXAM: Constitutional: Adequately built,not in acute distress. HEENT: Head atraumatic and normocephalic. Eyes: Extraocular muscles intact. Anicteric sclerae. Pupils equal bilaterally, reactive to light. NECK: Supple without lymph node. CHEST: Clear and good breath sounds equally. No wheezing. No rhonchi. HEART: S1, S2. Regular rate and rhythm. ABDOMEN: Soft/non tender with no rebound tenderness. Bowel sounds were present. EXTREMITIES: No cyanosis, clubbing or edema. NEUROLOGIC: Alert and oriented x3. No focal deficit. No sensory deficit. PSYCHOSOCIAL: No signs of depression. INTEGUMENTARY: No open wounds. ASSESSMENT AND PLAN:33 yo w/no pmh admitted with generalized weakness x5 days followed by diarrhea x2 days, found to have severe anemia and pancolitis Symptomatic Iron deficient anemia -s/p tx-HH improved -stool OB negative -cont.IV iron Pancolitis -likely culprit of diarrhea -CT reviewed. r/o IBD/UC/Crohns vs infectious colitis -Start Cipro and Flagyl -Follow-up EGD/colonoscopy findings -f/u stool studies Questionable mass on sigmoid colon -This will be followed up with a colonoscopy. Elevated lipase, likely concurrent -No abdominal pain. No evidence to suggest pancreatitis on CT. DVT prophylaxis: SCDs PUD prophylaxis: PPI Disposition: Follow-up EGD/colonoscopy findings. Patient was seen in collaboration with Dr. Bee. Result Diagram: 09/23/18 0547 09/23/18 0547 Results 24hrs Laboratory Tests Test 09/22/18 18:05 09/23/18 05:47 Hemoglobin 8.1 L 8.0 L Hematocrit 29.3 L 29.4 L White Blood Count 9.7 Red Blood Count 4.67 L Mean Corpuscular Volume 63.0 L Mean Corpuscular Hemoglobin 17.1 L Mean Corpuscular Hemoglobin Concent 27.2 L Red Cell Distribution Width Platelet Count 460 H Mean Platelet Volume Immature Granulocytes % 0.600 H Neutrophils % Segmented Neutrophils % (Manual) 45 Band Neutrophils % (Manual) 8 H Lymphocytes % Lymphocytes % (Manual) 20 Reactive Lymphocytes % (Manual) 5 H Monocytes % Monocytes % (Manual) 5 Eosinophils % Eosinophils % (Manual) 17 H Basophils % Nucleated Red Blood Cells % 0.3 H Immature Granulocytes # 0.060 H Neutrophils # Neutrophils # (Manual) 4.4 Band Neutrophils # 0.7 H Lymphocytes (Manual) 1.9 Lymphocytes # Reactive Lymphocytes # 0.4 H Monocytes # Monocytes # (Manual) 0.4 Eosinophils # Basophils # Nucleated Red Blood Cells # Platelet Estimate NORMAL Giant Platelets 1 H Polychromasia 1+ Hypochromasia 3+ Poikilocytosis 3+ Anisocytosis 2+ Microcytosis 2+ Spherocytes 1+ Ovalocytes 1+ Sodium Level 139 Potassium Level 3.4 L Chloride Level 105 Carbon Dioxide Level 25 Anion Gap 9 Blood Urea Nitrogen 5 L Creatinine 1.00 Est Glomerular Filtrat Rate mL/min > 60 Glucose Level 81 Hemoglobin A1c 5.1 Calcium Level 8.8 Lipase 2505 H Exam/Review of Systems Exam Vitals Vital Signs Date Temp Pulse Resp B/P (MAP) Pulse Ox O2 O2 Flow FiO2 Time Delivery Rate 09/23/18 98.2 88 18 118/65 97 Room Air 07:10 (82) Intake and Output 09/22/18 09/22/18 09/23/18 1515:00 23:00 07:00 IntakeIntake Total 1400 ml 890 ml 1990 ml OutputOutput Total 2 ml BalanceBalance 1400 ml 888 ml 1990 ml Results Results 24hrs Laboratory Tests Test 09/22/18 18:05 09/23/18 05:47 Hemoglobin 8.1 L 8.0 L Hematocrit 29.3 L 29.4 L White Blood Count 9.7 Red Blood Count 4.67 L Mean Corpuscular Volume 63.0 L Mean Corpuscular Hemoglobin 17.1 L Mean Corpuscular Hemoglobin Concent 27.2 L Red Cell Distribution Width Platelet Count 460 H Mean Platelet Volume Immature Granulocytes % 0.600 H Neutrophils % Segmented Neutrophils % (Manual) 45 Band Neutrophils % (Manual) 8 H Lymphocytes % Lymphocytes % (Manual) 20 Reactive Lymphocytes % (Manual) 5 H Monocytes % Monocytes % (Manual) 5 Eosinophils % Eosinophils % (Manual) 17 H Basophils % Nucleated Red Blood Cells % 0.3 H Immature Granulocytes # 0.060 H Neutrophils # Neutrophils # (Manual) 4.4 Band Neutrophils # 0.7 H Lymphocytes (Manual) 1.9 Lymphocytes # Reactive Lymphocytes # 0.4 H Monocytes # Monocytes # (Manual) 0.4 Eosinophils # Basophils # Nucleated Red Blood Cells # Platelet Estimate NORMAL Giant Platelets 1 H Polychromasia 1+ Hypochromasia 3+ Poikilocytosis 3+ Anisocytosis 2+ Microcytosis 2+ Spherocytes 1+ Ovalocytes 1+ Sodium Level 139 Potassium Level 3.4 L Chloride Level 105 Carbon Dioxide Level 25 Anion Gap 9 Blood Urea Nitrogen 5 L Creatinine 1.00 Est Glomerular Filtrat Rate mL/min > 60 Glucose Level 81 Hemoglobin A1c 5.1 Calcium Level 8.8 Lipase 2505 H Medications Medication Current Medications IV Flush (NS 3 ml) 3 ml PER PROTOCOL IV ; Start 09/21/18 at 14:00 Ondansetron HCl (Zofran Inj) 4 mg Q6H PRN IV NAUSEA/VOMITING; Start 09/21/18 at 14:00 Acetaminophen (Tylenol Tab) 650 mg Q6H PRN PO .PAIN 1-3 OR TEMP; Start 09/21/18 at 14:00 Pantoprazole (Protonix Iv) 40 mg BID@06,18 IV Last administered on 09/23/18at 06:26; Admin Dose 40 MG; Start 09/21/18 at 18:00 Sodium Chloride 1,000 ml @ 80 mls/hr [id number] IV Last administered on 09/23/18at 03:54; Admin Dose 80 MLS/HR; Start 09/21/18 at 14:00 Ferric Sodium Gluconate Complex 125 mg/Sodium Chloride 110 ml @ 110 mls/hr DAILY@1300 IVPB Last administered on 09/22/18at 15:03; Admin Dose 110 MLS/HR; Start 09/22/18 at 13:00; Stop 09/26/18 at 13:59 RON PIERCE NP Sep 23, 2018 10:52
--- NOTE | 2018-09-23 10:56 | PREAC ---
Date/Time of Note Date/Time of Note DATE: 09/23/18 TIME: 10:54 Anesthesia Eval and Record Evaluation Time Pre-Procedure Interview DATE: 09/23/18 TIME: 10:54 Age 33 Sex male NPO: 8 hrs Preoperative diagnosis anemia / weight loss Planned procedure colonoscopy / egd Past Medical History Past Medical History: Includes GI: Obesity Heme: Anemia Surgery & Anesthesia Issues No known issue Meds Anticoagulation: No Beta Keely within 24 hr: No Reason Beta Keely not given: Pt. not on B-Keely Discontinued Scripts Ondansetron (Ondansetron Odt) 8 Mg Tab.rapdis, 8 MG PO Q6H PRN for NAUSEA AND/OR VOMITING, #10 TAB Prov:BLANQUITA TORRES 05/26/18 Acetaminophen* (Tylophen*) 500 Mg Capsule, 2 CAP PO Q8H PRN for PAIN AND OR ELEVATED TEMP, #20 CAP Prov:BLANQUITA TORRES 05/26/18 Current Medications IV Flush (NS 3 ml) 3 ml PER PROTOCOL IV ; Start 09/21/18 at 14:00 Ondansetron HCl (Zofran Inj) 4 mg Q6H PRN IV NAUSEA/VOMITING; Start 09/21/18 at 14:00 Acetaminophen (Tylenol Tab) 650 mg Q6H PRN PO .PAIN 1-3 OR TEMP; Start 09/21/18 at 14:00 Pantoprazole (Protonix Iv) 40 mg BID@06,18 IV Last administered on 09/23/18at 06:26; Admin Dose 40 MG; Start 09/21/18 at 18:00 Sodium Chloride 1,000 ml @ 80 mls/hr [id number] IV Last administered on 09/23/18at 03:54; Admin Dose 80 MLS/HR; Start 09/21/18 at 14:00 Ferric Sodium Gluconate Complex 125 mg/Sodium Chloride 110 ml @ 110 mls/hr DAILY@1300 IVPB Last administered on 09/22/18at 15:03; Admin Dose 110 MLS/HR; Start 09/22/18 at 13:00; Stop 09/26/18 at 13:59 Ciprofloxacin/ Dextrose 200 ml @ 200 mls/hr Q12 IVPB ; Start 09/23/18 at 11:00; Status UNV Metronidazole 100 ml @ 100 mls/hr Q8 IVPB ; Start 09/23/18 at 14:00; Status UNV Meds reviewed: Yes Allergies Coded Allergies: No Known Allergy (Unverified , 09/21/18) Allergies Reviewed: Yes Labs/Studies Labs Reviewed: Reviewed by anesthesiologist Result Diagram: 09/23/18 0547 09/23/18 0547 Laboratory Tests 09/23/18 05:47 test: N/A Pre-procedure Exam Last vitals Vital Signs Date Temp Pulse Resp B/P (MAP) Pulse Ox O2 O2 Flow FiO2 Time Delivery Rate 09/23/18 98.2 88 18 118/65 97 Room Air 07:10 (82) Airway: Adequate mouth opening Mallampati: Mallampati II Teeth: Normal Lung: Normal Heart: Normal ASA Physical Status ASA physical status: 2 Emergency: None Planned Anesthetic General/MAC: MAC Pre-operative Attestations Prior to commencing anesthesia and surgery, the patient was re-evaluated, there was verification of: *The patient's identity *The results of appropriate recent lab work and preoperative vital signs *The above evaluation not changing prior to induction *Anesthetic plan, risk benefits, alternative and complications discussed with patient/family; questions answered; patient/family understands, accepts and wishes to proceed. DOROTHY MCNEAL Sep 23, 2018 10:56
[2018-09-23] MEDS ORDERED: PROPOFOL 200 MG INJ ONE (12:00)
[2018-09-23] MEDS ORDERED: LIDOCAINE 2% (SDV) 5 ML INJ ONE (12:04)
[2018-09-23] MEDS ORDERED: LIDOCAINE 4% SOLUTION 50 ML BTL ONE (12:05)
[2018-09-23] MEDS ORDERED: FENTAnyl 50 MCG/ML VIAL ONE (12:05)
[2018-09-23] MEDS: metroNIDAZOLE 500 MG/NS (PMX) 100 ML IVPB SCH ×2 (14:33→23:00)
[2018-09-23] MEDS: SOD FERRIC GLUC COMPLX 125 MG in SOD CHLORIDE 0.9% 100 ML IVPB SCH (14:33)
[2018-09-23] MEDS: CIPROFLOXACIN 400MG/D5W 200 ML IVPB SCH ×2 (14:34→20:02)
[2018-09-24 02:38] VITALS: BP 108/67; PULSE 91; RESP 18
[2018-09-24] MEDS: metroNIDAZOLE 500 MG/NS (PMX) 100 ML IVPB SCH ×3 (06:04→21:48)
[2018-09-24] MEDS: PANTOPRAZOLE 40 MG INJ IV SCH ×2 (06:04→17:08)
[2018-09-24 07:32] VITALS: BP 116/69; PULSE 83; RESP 16
[2018-09-24] MEDS: CIPROFLOXACIN 400MG/D5W 200 ML IVPB SCH ×2 (08:55→20:20)
--- NOTE | 2018-09-24 11:39 | PN ---
Date/Time of Note Date/Time of Note DATE: 09/24/18 TIME: 11:32 Assessment/Plan VTE Prophylaxis Risk score (from Ns)>0 risk: 1 SCD applied (from [facility] [place]): No SCD contraindicated: other Pharmacological prophylaxis: NA/contraindicated Pharm contraindication: low risk/ambulating Lines/Catheters IV [facility]ter Type (from [facility]): Peripheral IV Urinary Cath still in place: No Assessment/Plan Hospital Course SUBJECTIVE: No acute events. OBJECTIVE: Vital signs-see below PHYSICAL EXAM: Constitutional: Adequately built,not in acute distress. HEENT: Head atraumatic and normocephalic. Eyes: Extraocular muscles intact. Anicteric sclerae. Pupils equal bilaterally, reactive to light. NECK: Supple without lymph node. CHEST: Clear and good breath sounds equally. No wheezing. No rhonchi. HEART: S1, S2. Regular rate and rhythm. ABDOMEN: Soft/non tender with no rebound tenderness. Bowel sounds were present. EXTREMITIES: No cyanosis, clubbing or edema. NEUROLOGIC: Alert and oriented x3. No focal deficit. No sensory deficit. PSYCHOSOCIAL: No signs of depression. INTEGUMENTARY: No open wounds. ASSESSMENT AND PLAN:33 yo w/no pmh admitted with generalized weakness x5 days followed by diarrhea x2 days, found to have severe anemia /pancolitis Symptomatic Iron deficient anemia -s/p tx-HH improved -stool OB negative -cont.IV iron Diffuse pancolitis/possible ulcerative colitis -Symptoms improving. -mgmt per GI -F/u biopsy -cont.cipr/flagyl -stool cs Coliform Questionable mass on sigmoid colon Colonoscopy: Diffuse pancolitis suggestive of ulcerative colitis with 4 cm mass at the anal verge. -CEA negative. Follow-up biopsy. -Surgical consultation W/ requested. Will need staging once pathology report comes. Elevated lipase, likely concurrent -No abdominal pain. No evidence to suggest pancreatitis on CT. -Lipase trending down. Diet as tolerated. DVT prophylaxis: SCDs PUD prophylaxis: PPI Disposition: Follow-up EGD/colonoscopy pathology findings. Follow-up surgical recommendations. Patient was seen in collaboration with Dr. Mosley Result Diagram: 09/24/1828 09/24/18 0628 Results 24hrs Laboratory Tests Test 09/23/18 11:46 09/24/18 06:28 Lab Scanned Report REFERENCE LAB White Blood Count 11.0 H Red Blood Count 5.19 Hemoglobin 9.0 L Hematocrit 33.8 L Mean Corpuscular Volume 65.1 L Mean Corpuscular Hemoglobin 17.3 L Mean Corpuscular Hemoglobin Concent 26.6 L Red Cell Distribution Width Platelet Count 469 H Mean Platelet Volume Immature Granulocytes % 0.500 H Neutrophils % 64.7 Lymphocytes % 19.4 Monocytes % 7.9 Eosinophils % 7.0 Basophils % 0.5 Nucleated Red Blood Cells % 0.0 Immature Granulocytes # 0.050 H Neutrophils # 7.1 Lymphocytes # 2.1 Monocytes # 0.9 Eosinophils # 0.8 H Basophils # 0.1 Nucleated Red Blood Cells # 0.0 Sodium Level 138 Potassium Level 3.9 Chloride Level 106 Carbon Dioxide Level 20 L Anion Gap 12 Blood Urea Nitrogen 7 Creatinine 0.96 Est Glomerular Filtrat Rate mL/min > 60 Glucose Level 81 Calcium Level 9.0 Lipase 1252 H Carcinoembryonic Antigen 0.9 Exam/Review of Systems Exam Vitals Vital Signs Date Temp Pulse Resp B/P (MAP) Pulse Ox O2 O2 Flow FiO2 Time Delivery Rate 09/24/18 99.3 83 16 116/69 98 Room Air 07:32 (85) Intake and Output 09/23/18 09/23/18 09/24/18 1515:00 23:00 07:00 IntakeIntake Total 100 ml 1130 ml 500 ml BalanceBalance 100 ml 1130 ml 500 ml Results Results 24hrs Laboratory Tests Test 09/23/18 11:46 09/24/18 06:28 Lab Scanned Report REFERENCE LAB White Blood Count 11.0 H Red Blood Count 5.19 Hemoglobin 9.0 L Hematocrit 33.8 L Mean Corpuscular Volume 65.1 L Mean Corpuscular Hemoglobin 17.3 L Mean Corpuscular Hemoglobin Concent 26.6 L Red Cell Distribution Width Platelet Count 469 H Mean Platelet Volume Immature Granulocytes % 0.500 H Neutrophils % 64.7 Lymphocytes % 19.4 Monocytes % 7.9 Eosinophils % 7.0 Basophils % 0.5 Nucleated Red Blood Cells % 0.0 Immature Granulocytes # 0.050 H Neutrophils # 7.1 Lymphocytes # 2.1 Monocytes # 0.9 Eosinophils # 0.8 H Basophils # 0.1 Nucleated Red Blood Cells # 0.0 Sodium Level 138 Potassium Level 3.9 Chloride Level 106 Carbon Dioxide Level 20 L Anion Gap 12 Blood Urea Nitrogen 7 Creatinine 0.96 Est Glomerular Filtrat Rate mL/min > 60 Glucose Level 81 Calcium Level 9.0 Lipase 1252 H Carcinoembryonic Antigen 0.9 Medications Medication Current Medications IV Flush (NS 3 ml) 3 ml PER PROTOCOL IV ; Start 09/21/18 at 14:00 Ondansetron HCl (Zofran Inj) 4 mg Q6H PRN IV NAUSEA/VOMITING; Start 09/21/18 at 14:00 Acetaminophen (Tylenol Tab) 650 mg Q6H PRN PO .PAIN 1-3 OR TEMP; Start 09/21/18 at 14:00 Pantoprazole (Protonix Iv) 40 mg BID@06,18 IV Last administered on 09/24/18at 06:04; Admin Dose 40 MG; Start 09/21/18 at 18:00 Sodium Chloride 1,000 ml @ 80 mls/hr [id number] IV Last administered on 09/23/18at 23:00; Admin Dose 80 MLS/HR; Start 09/21/18 at 14:00 Ferric Sodium Gluconate Complex 125 mg/Sodium Chloride 110 ml @ 110 mls/hr DAILY@1300 IVPB Last administered on 09/23/18at 14:33; Admin Dose 110 MLS/HR; Start 09/22/18 at 13:00; Stop 09/26/18 at 13:59 Ciprofloxacin/ Dextrose 200 ml @ 200 mls/hr Q12 IVPB Last administered on 09/24/18at 08:55; Admin Dose 200 MLS/HR; Start 09/23/18 at 12:00 Metronidazole 100 ml @ 100 mls/hr Q8 IVPB Last administered on 09/24/18at 06:04; Admin Dose 100 MLS/HR; Start 09/23/18 at 14:00 RON PIERCE NP Sep 24, 2018 11:39
--- NOTE | 2018-09-24 13:00 | CONS ---
Assessment/Plan Assessment/Plan Assessment/Plan (Daily) Most probably patient presents with ulcerative colitis with mid sigmoid mass rule out cancer. Patient need metastatic work-up if cancer is confirmed. When patient will be confirmed with ulcerative colitis and the nature of the sigmoid mass will be cleared he needs referral to colorectal surgeon for total proctocolectomy possible pouch versus ileostomy. Depends of his metastatic status. Consultation Date/Type/Reason Admit Date/Time Date of Consultation: Sep 24, 2018 Type of Consult Surgical Reason for Consultation Anemia, pancolitis, sigmoid mass, rule out cancer in the ulcerative colitis. Date/Time of Note DATE: 09/24/18 TIME: 12:56 Hx of Present Illness This is a 33-year-old male with past medical history of anemia diagnosed about 1 to 2 years ago who presented to the hospital with complaints of generalized weakness and watery diarrhea going up to 4-5 episodes per day for the past week. Work-up hematology shows severe microcytic anemia with a hemoglobin of 5.0 he is status post 2 units packed RBCs and a chemistry panel shows relatively normal LFTs, lipase is elevated at 1406 and an iron panel shows severe iron deficiency. GI has been consulted for further evaluation regarding anemia evaluation patient denies nausea/vomiting or abdominal pain. Dates he was previously evaluated about 1 to 2 years ago he states he is never had an upper endoscopy or colonoscopy. With further evaluation patient denies any overt signs of GI bleed including melena, hematochezia or hematemesis patient states he has lost about 80 pounds in the past 7 months although he contributed to a change in diet. At time of evaluation patient denies nausea/vomiting or abdominal pain. Colonoscopy was performed yesterday that showed diffuse colitis with ulceration consistent with the ulcerative colitis, as well as large mass at the level of 35 cm in the mid sigmoid consistent with cancer. Biopsies pending. Constitutional: other (Fatigue) Eyes: no complaints ENT: no complaints Respiratory: no complaints Cardiovascular: no complaints Gastrointestinal: diarrhea (Sometimes bloody.) Genitourinary: no complaints Musculoskeletal: no complaints Skin: no complaints Neurologic: no complaints Endocrine: no complaints Lymphatic: no complaints Psychological: no complaints, nl mood/affect Immunologic: no complaints Past Medical History Medical History: no pertinent history Home Meds Discontinued Scripts Ondansetron (Ondansetron Odt) 8 Mg Tab.rapdis, 8 MG PO Q6H PRN for NAUSEA AND/OR VOMITING, #10 TAB Prov:BLANQUITA TORRES 05/26/18 Acetaminophen* (Tylophen*) 500 Mg Capsule, 2 CAP PO Q8H PRN for PAIN AND OR ELEVATED TEMP, #20 CAP Prov:BLANQUITA TORRES 05/26/18 Medications Current Medications IV Flush (NS 3 ml) 3 ml PER PROTOCOL IV ; Start 09/21/18 at 14:00 Ondansetron HCl (Zofran Inj) 4 mg Q6H PRN IV NAUSEA/VOMITING; Start 09/21/18 at 14:00 Acetaminophen (Tylenol Tab) 650 mg Q6H PRN PO .PAIN 1-3 OR TEMP; Start 09/21/18 at 14:00 Pantoprazole (Protonix Iv) 40 mg BID@06,18 IV Last administered on 09/24/18at 06:04; Admin Dose 40 MG; Start 09/21/18 at 18:00 Ferric Sodium Gluconate Complex 125 mg/Sodium Chloride 110 ml @ 110 mls/hr DAILY@1300 IVPB Last administered on 09/23/18at 14:33; Admin Dose 110 MLS/HR; Start 09/22/18 at 13:00; Stop 09/26/18 at 13:59 Ciprofloxacin/ Dextrose 200 ml @ 200 mls/hr Q12 IVPB Last administered on 09/24/18at 08:55; Admin Dose 200 MLS/HR; Start 09/23/18 at 12:00 Metronidazole 100 ml @ 100 mls/hr Q8 IVPB Last administered on 09/24/18at 06:04; Admin Dose 100 MLS/HR; Start 09/23/18 at 14:00 Allergies: Coded Allergies: No Known Allergy (Unverified , 09/21/18) Past Surgical History Past Surgical Hx: no surgical history Family History Significant Family History: no pertinent family hx Social History Smoking Status: Never smoker Exam/Review of Systems Exam Vitals Vital Signs Date Temp Pulse Resp B/P (MAP) Pulse Ox O2 O2 Flow FiO2 Time Delivery Rate 09/24/18 99.3 83 16 116/69 98 Room Air 07:32 (85) Intake and Output 09/23/18 09/23/18 09/24/18 1515:00 23:00 07:00 IntakeIntake Total 100 ml 1130 ml 500 ml BalanceBalance 100 ml 1130 ml 500 ml Constitutional: alert, oriented, well developed Psych: no complaints, nl mood/affect Head: normocephalic, atraumatic Eyes: nl conjunctiva, EOMI, nl lids, nl sclera, PERRL ENMT: nl external ears & nose, nl lips & teeth, nl nasal mucosa & septum Neck: supple, non-tender Respiratory: clear to auscultation, normal air movement Cardiovascular: regular rate and rhythm, nl pulses Gastrointestinal: soft, nl liver, spleen, non-tender, other (Per rectum empty ampulla no blood.) Musculoskeletal: nl extremities to inspection, nl gait and stance Extremities: normal pulses Neurological: P[employer] II-XII intact, nl mental status, nl speech, nl strength Skin: nl turgor; No rash or lesions Lymph: nl lymph nodes Results Result Diagram: 09/24/1862709/24/18627 Results 24hrs Laboratory Tests Test 09/24/18 06:28 White Blood Count 11.0 H Red Blood Count 5.19 Hemoglobin 9.0 L Hematocrit 33.8 L Mean Corpuscular Volume 65.1 L Mean Corpuscular Hemoglobin 17.3 L Mean Corpuscular Hemoglobin Concent 26.6 L Red Cell Distribution Width Platelet Count 469 H Mean Platelet Volume Immature Granulocytes % 0.500 H Neutrophils % 64.7 Lymphocytes % 19.4 Monocytes % 7.9 Eosinophils % 7.0 Basophils % 0.5 Nucleated Red Blood Cells % 0.0 Immature Granulocytes # 0.050 H Neutrophils # 7.1 Lymphocytes # 2.1 Monocytes # 0.9 Eosinophils # 0.8 H Basophils # 0.1 Nucleated Red Blood Cells # 0.0 Sodium Level 138 Potassium Level 3.9 Chloride Level 106 Carbon Dioxide Level 20 L Anion Gap 12 Blood Urea Nitrogen 7 Creatinine 0.96 Est Glomerular Filtrat Rate mL/min > 60 Glucose Level 81 Calcium Level 9.0 Lipase 1252 H Carcinoembryonic Antigen 0.9 Medications Medication Current Medications IV Flush (NS 3 ml) 3 ml PER PROTOCOL IV ; Start 09/21/18 at 14:00 Ondansetron HCl (Zofran Inj) 4 mg Q6H PRN IV NAUSEA/VOMITING; Start 09/21/18 at 14:00 Acetaminophen (Tylenol Tab) 650 mg Q6H PRN PO .PAIN 1-3 OR TEMP; Start 09/21/18 at 14:00 Pantoprazole (Protonix Iv) 40 mg BID@06,18 IV Last administered on 09/24/18at 06:04; Admin Dose 40 MG; Start 09/21/18 at 18:00 Ferric Sodium Gluconate Complex 125 mg/Sodium Chloride 110 ml @ 110 mls/hr DAILY@1300 IVPB Last administered on 09/23/18at 14:33; Admin Dose 110 MLS/HR; Start 09/22/18 at 13:00; Stop 09/26/18 at 13:59 Ciprofloxacin/ Dextrose 200 ml @ 200 mls/hr Q12 IVPB Last administered on 09/24/18at 08:55; Admin Dose 200 MLS/HR; Start 09/23/18 at 12:00 Metronidazole 100 ml @ 100 mls/hr Q8 IVPB Last administered on 09/24/18at 06:04; Admin Dose 100 MLS/HR; Start 09/23/18 at 14:00 GINETTE SHAH MD Sep 24, 2018 13:00
[2018-09-24] MEDS: SOD FERRIC GLUC COMPLX 125 MG in SOD CHLORIDE 0.9% 100 ML IVPB SCH (13:07)
[2018-09-24 14:09] VITALS: BP 112/68; PULSE 94; RESP 16
--- NOTE | 2018-09-24 14:49 | PN ---
Date/Time of Note Date/Time of Note DATE: 09/24/18 TIME: 14:41 Assessment/Plan VTE Prophylaxis Risk score (from Ns)>0 risk: 1 SCD applied (from Ns): No SCD contraindicated: low risk/ambulating Pharmacological prophylaxis: heparin Lines/Catheters IV Catheter Type (from Nrs): Peripheral IV Urinary Cath still in place: No Assessment/Plan Assessment/Plan Assessment: Severe iron deficiency anemia/Diarrhea -Ct- abd/pelvis - pancolitis, Rounded 3.8 cm mass-like structure with mild enhancement in the lumen of the mid sigmoid colon concerning for colonic mass/po lyp -Elevated ESR/CRP- query underlying IBD? Status post EGD 09/23/18: -Acute gastritis -Esophagitis Grade C -Mild gastropathy, biopsies taken for H Pylori Colonoscopy 09/23/18: -Findings consistent with ulcerative colitis -4 cm malignant appearing mass 35 cm from the anal verge Weakness secondary to above Thrombocytosis likely reactive Elevated lipase- stable though remains elevated despite abdominal pain Excessive weight loss- 80+ lbs in 7 months Hepatosplenomegaly. Plan: Await biopsies when available, although likely colon cancer Appreciate surgical recommendations Continue regular diet Monitor H/H transfuse as needed Endoscopy - risks/benefits/alternatives/indications of procedure and sedation/anesthesia discussed with patient who states understanding and gives informed consent to proceed. Patient seen in collaboration with Dr. Dial Subjective/Free text: Patient is doing well post procedure though does have some diarrhea though no bleeding, He is tolerating regular diet. He denies abdominal pain. Discussed the findings of EGD and colonoscopy with patient which identified a malignant appearing sigmoid colon mass. He was seen by surgery Dr. Sprague. Will await final pathology from biopsies and review when available. Continue current treatment. Exam PHYSICAL EXAMINATION: GENERAL: Pale, alert & oriented x 3, in no acute distress SKIN: No lesions CHEST: Inspection within normal limits. CARDIOVASCULAR: Heart: Regular rate and rhythm, RESPIRATORY: Lungs clear to auscultation GASTROINTESTINAL AND LIVER: Abdomen: Soft, non tenderness, non-distended, no hernias, no masses, no organomegaly, no ascites, no guarding, no rebound tenderness, normoactive bowel sounds. Rectal: Deferred EXTREMITIES: No cyanosis, clubbing or edema. Result Diagram: 09/24/1862709/24/18627 Results 24hrs Laboratory Tests Test 8/3/19 06:28 White Blood Count 11.0 H Red Blood Count 5.19 Hemoglobin 9.0 L Hematocrit 33.8 L Mean Corpuscular Volume 65.1 L Mean Corpuscular Hemoglobin 17.3 L Mean Corpuscular Hemoglobin Concent 26.6 L Red Cell Distribution Width Platelet Count 469 H Mean Platelet Volume Immature Granulocytes % 0.500 H Neutrophils % 64.7 Lymphocytes % 19.4 Monocytes % 7.9 Eosinophils % 7.0 Basophils % 0.5 Nucleated Red Blood Cells % 0.0 Immature Granulocytes # 0.050 H Neutrophils # 7.1 Lymphocytes # 2.1 Monocytes # 0.9 Eosinophils # 0.8 H Basophils # 0.1 Nucleated Red Blood Cells # 0.0 Sodium Level 138 Potassium Level 3.9 Chloride Level 106 Carbon Dioxide Level 20 L Anion Gap 12 Blood Urea Nitrogen 7 Creatinine 0.96 Est Glomerular Filtrat Rate mL/min > 60 Glucose Level 81 Calcium Level 9.0 Lipase 1252 H Carcinoembryonic Antigen 0.9 CC: KIMANI DIAL MD ; Exam/Review of Systems Exam Vitals Vital Signs Date Temp Pulse Resp B/P (MAP) Pulse Ox O2 O2 Flow FiO2 Time Delivery Rate 09/24/18 99.2 94 16 112/68 100 Room Air 14:09 (83) Intake and Output 09/23/18 09/23/18 09/24/18 1515:00 23:00 07:00 IntakeIntake Total 100 ml 1130 ml 500 ml BalanceBalance 100 ml 1130 ml 500 ml Results Results 24hrs Laboratory Tests Test 09/24/18 06:28 White Blood Count 11.0 H Red Blood Count 5.19 Hemoglobin 9.0 L Hematocrit 33.8 L Mean Corpuscular Volume 65.1 L Mean Corpuscular Hemoglobin 17.3 L Mean Corpuscular Hemoglobin Concent 26.6 L Red Cell Distribution Width Platelet Count 469 H Mean Platelet Volume Immature Granulocytes % 0.500 H Neutrophils % 64.7 Lymphocytes % 19.4 Monocytes % 7.9 Eosinophils % 7.0 Basophils % 0.5 Nucleated Red Blood Cells % 0.0 Immature Granulocytes # 0.050 H Neutrophils # 7.1 Lymphocytes # 2.1 Monocytes # 0.9 Eosinophils # 0.8 H Basophils # 0.1 Nucleated Red Blood Cells # 0.0 Sodium Level 138 Potassium Level 3.9 Chloride Level 106 Carbon Dioxide Level 20 L Anion Gap 12 Blood Urea Nitrogen 7 Creatinine 0.96 Est Glomerular Filtrat Rate mL/min > 60 Glucose Level 81 Calcium Level 9.0 Lipase 1252 H Carcinoembryonic Antigen 0.9 Medications Medication Current Medications IV Flush (NS 3 ml) 3 ml PER PROTOCOL IV ; Start 09/21/18 at 14:00 Ondansetron HCl (Zofran Inj) 4 mg Q6H PRN IV NAUSEA/VOMITING; Start 09/21/18 at 14:00 Acetaminophen (Tylenol Tab) 650 mg Q6H PRN PO .PAIN 1-3 OR TEMP; Start 09/21/18 at 14:00 Pantoprazole (Protonix Iv) 40 mg BID@06,18 IV Last administered on 09/24/18at 06:04; Admin Dose 40 MG; Start 09/21/18 at 18:00 Ferric Sodium Gluconate Complex 125 mg/Sodium Chloride 110 ml @ 110 mls/hr DAILY@1300 IVPB Last administered on 09/24/18at 13:07; Admin Dose 110 MLS/HR; Start 09/22/18 at 13:00; Stop 09/26/18 at 13:59 Ciprofloxacin/ Dextrose 200 ml @ 200 mls/hr Q12 IVPB Last administered on 09/24/18at 08:55; Admin Dose 200 MLS/HR; Start 09/23/18 at 12:00 Metronidazole 100 ml @ 100 mls/hr Q8 IVPB Last administered on 09/24/18at 06:04; Admin Dose 100 MLS/HR; Start 09/23/18 at 14:00 JONES MUSA NP Sep 24, 2018 14:49
[2018-09-24 20:26] VITALS: BP 120/82; PULSE 85; RESP 20
[2018-09-25 02:31] VITALS: BP 108/64; PULSE 84; RESP 18
[2018-09-25] MEDS: metroNIDAZOLE 500 MG/NS (PMX) 100 ML IVPB SCH ×3 (05:59→22:15)
[2018-09-25] MEDS: PANTOPRAZOLE 40 MG INJ IV SCH ×2 (05:59→17:08)
[2018-09-25 08:02] VITALS: BP 113/70; PULSE 85; RESP 18
[2018-09-25] MEDS: CIPROFLOXACIN 400MG/D5W 200 ML IVPB SCH ×2 (09:02→20:29)
--- NOTE | 2018-09-25 09:55 | PN ---
Date/Time of Note Date/Time of Note DATE: 09/25/18 TIME: 09:52 Assessment/Plan VTE Prophylaxis Risk score (from Ns)>0 risk: 1 SCD applied (from Ns): Yes Pharmacological prophylaxis: NA/contraindicated Pharm contraindication: low risk/ambulating Lines/Catheters [facility] Saline Lock Urinary Cath still in place: No Assessment/Plan Hospital Course SUBJECTIVE: No acute events. OBJECTIVE: Vital signs-see below PHYSICAL EXAM: Constitutional: Adequately built,not in acute distress. HEENT: Head atraumatic and normocephalic. Eyes: Extraocular muscles intact. Anicteric sclerae. Pupils equal bilaterally, reactive to light. NECK: Supple without lymph node. CHEST: Clear and good breath sounds equally. No wheezing. No rhonchi. HEART: S1, S2. Regular rate and rhythm. ABDOMEN: Soft/non tender with no rebound tenderness. Bowel sounds were present. EXTREMITIES: No cyanosis, clubbing or edema. NEUROLOGIC: Alert and oriented x3. No focal deficit. No sensory deficit. PSYCHOSOCIAL: No signs of depression. INTEGUMENTARY: No open wounds. ASSESSMENT AND PLAN:33 yo w/no pmh admitted with generalized weakness x5 days followed by diarrhea x2 days, found to have severe anemia /pancolitis Symptomatic Iron deficient anemia -s/p tx-HH improved -stool OB negative -cont.IV iron Diffuse pancolitis/possible ulcerative colitis -Symptoms improving. -mgmt per GI -F/u biopsy -cont.cipr/flagyl -stool cs Coliform Questionable mass on sigmoid colon Colonoscopy: Diffuse pancolitis suggestive of ulcerative colitis with 4 cm mass at the anal verge. -CEA negative. Follow-up biopsy. -appreciates surgical follow-up. Will need staging once pathology report comes(left message w/ to look out for path report and further recs) -Depending pathology report, will consider colorectal surgery involvement. Elevated lipase, ? concurrent -No abdominal pain. No evidence to suggest pancreatitis on CT. -Diet as tolerated. DVT prophylaxis: SCDs PUD prophylaxis: PPI Disposition: Follow-up EGD/colonoscopy pathology findings. Follow-up surgical recommendations. Patient was seen in collaboration with Dr. Mosley Result Diagram: 09/25/18 0511 09/24/18 0628 Results 24hrs Laboratory Tests Test 09/25/18 05:11 09/25/18 07:03 White Blood Count 12.1 H Red Blood Count 4.67 L Hemoglobin 8.3 L Hematocrit 30.6 L Mean Corpuscular Volume 65.5 L Mean Corpuscular Hemoglobin 17.8 L Mean Corpuscular Hemoglobin Concent 27.1 L Red Cell Distribution Width Platelet Count 448 H Mean Platelet Volume Immature Granulocytes % 0.300 Neutrophils % 73.2 Lymphocytes % 11.3 L Monocytes % 7.0 Eosinophils % 7.7 H Basophils % 0.5 Nucleated Red Blood Cells % 0.0 Immature Granulocytes # 0.040 H Neutrophils # 8.9 H Lymphocytes # 1.4 Monocytes # 0.9 Eosinophils # 0.9 H Basophils # 0.1 Nucleated Red Blood Cells # 0.0 Lipase 3824 H Lab Scanned Report BLOOD TRANSFUSION Exam/Review of Systems Exam Vitals Vital Signs Date Temp Pulse Resp B/P (MAP) Pulse Ox O2 O2 Flow FiO2 Time Delivery Rate 09/25/18 99.1 85 18 113/70 99 08:02 (84) 09/24/18 Room Air 14:09 Intake and Output 09/24/18 09/24/18 09/25/18 1515:00 23:00 07:00 IntakeIntake Total 1000 ml 850 ml 420 ml BalanceBalance 1000 ml 850 ml 420 ml Results Results 24hrs Laboratory Tests Test 09/25/18 05:11 09/25/18 07:03 White Blood Count 12.1 H Red Blood Count 4.67 L Hemoglobin 8.3 L Hematocrit 30.6 L Mean Corpuscular Volume 65.5 L Mean Corpuscular Hemoglobin 17.8 L Mean Corpuscular Hemoglobin Concent 27.1 L Red Cell Distribution Width Platelet Count 448 H Mean Platelet Volume Immature Granulocytes % 0.300 Neutrophils % 73.2 Lymphocytes % 11.3 L Monocytes % 7.0 Eosinophils % 7.7 H Basophils % 0.5 Nucleated Red Blood Cells % 0.0 Immature Granulocytes # 0.040 H Neutrophils # 8.9 H Lymphocytes # 1.4 Monocytes # 0.9 Eosinophils # 0.9 H Basophils # 0.1 Nucleated Red Blood Cells # 0.0 Lipase 3824 H Lab Scanned Report BLOOD TRANSFUSION Medications Medication Current Medications IV Flush (NS 3 ml) 3 ml PER PROTOCOL IV ; Start 09/21/18 at 14:00 Ondansetron HCl (Zofran Inj) 4 mg Q6H PRN IV NAUSEA/VOMITING; Start 09/21/18 at 14:00 Acetaminophen (Tylenol Tab) 650 mg Q6H PRN PO .PAIN 1-3 OR TEMP; Start 09/21/18 at 14:00 Pantoprazole (Protonix Iv) 40 mg BID@06,18 IV Last administered on 09/25/18at 05:59; Admin Dose 40 MG; Start 09/21/18 at 18:00 Ferric Sodium Gluconate Complex 125 mg/Sodium Chloride 110 ml @ 110 mls/hr DAILY@1300 IVPB Last administered on 09/24/18at 13:07; Admin Dose 110 MLS/HR; Start 09/22/18 at 13:00; Stop 09/26/18 at 13:59 Ciprofloxacin/ Dextrose 200 ml @ 200 mls/hr Q12 IVPB Last administered on 09/25/18at 09:02; Admin Dose 200 MLS/HR; Start 09/23/18 at 12:00 Metronidazole 100 ml @ 100 mls/hr Q8 IVPB Last administered on 09/25/18at 05:59; Admin Dose 100 MLS/HR; Start 09/23/18 at 14:00 RON PIERCE NP Sep 25, 2018 09:55
[2018-09-25] MEDS: SOD FERRIC GLUC COMPLX 125 MG in SOD CHLORIDE 0.9% 100 ML IVPB SCH (12:41)
[2018-09-25 14:30] VITALS: BP 110/68; PULSE 80; RESP 18
--- NOTE | 2018-09-25 14:46 | PN ---
Date/Time of Note Date/Time of Note DATE: 09/25/18 TIME: 14:43 Assessment/Plan VTE Prophylaxis Risk score (from Ns)>0 risk: 1 SCD applied (from Ns): Yes Pharmacological prophylaxis: NA/contraindicated Pharm contraindication: bleeding Lines/Catheters [facility] Saline Lock Urinary Cath still in place: No Assessment/Plan Assessment/Plan Assessment: Severe iron deficiency anemia/Diarrhea -Ct- abd/pelvis - pancolitis, Rounded 3.8 cm mass-like structure with mild enhancement in the lumen of the mid sigmoid colon concerning for colonic mass/ polyp -Elevated ESR/CRP- query underlying IBD? Status post EGD 09/23/18: -Acute gastritis -Esophagitis Grade C -Mild gastropathy, biopsies taken for H Pylori Colonoscopy 09/23/18: -Findings consistent with ulcerative colitis -4 cm malignant appearing mass 35 cm from the anal verge Weakness secondary to above Thrombocytosis likely reactive Elevated lipase- stable though remains elevated despite abdominal pain Excessive weight loss- 80+ lbs in 7 months Hepatosplenomegaly. Plan: Await biopsies when available, although likely colon cancer Appreciate surgical recommendations Continue regular diet Monitor H/H transfuse as needed, stable at this time Patient seen in collaboration with Dr. Dial Subjective: Patient is doing well, tolerating regular diet. States diarrhea is improved and denies any rectal bleeding, nausea or vomiting, or abdominal pain. Discussed once again that we will await pathologies. Continue current treatment. Exam PHYSICAL EXAMINATION: GENERAL: Pale, alert & oriented x 3, in no acute distress SKIN: No lesions CHEST: Inspection within normal limits. CARDIOVASCULAR: Heart: Regular rate and rhythm, RESPIRATORY: Lungs clear to auscultation GASTROINTESTINAL AND LIVER: Abdomen: Soft, non tender, non-distended, no hernias, no masses, no organomegaly, no ascites, no guarding, no rebound tenderness, normoactive bowel sounds. Rectal: Deferred EXTREMITIES: No cyanosis, clubbing or edema. Result Diagram: 09/25/18 0511 09/24/18 0628 Results 24hrs Laboratory Tests Test 09/25/18 05:11 09/25/18 07:03 White Blood Count 12.1 H Red Blood Count 4.67 L Hemoglobin 8.3 L Hematocrit 30.6 L Mean Corpuscular Volume 65.5 L Mean Corpuscular Hemoglobin 17.8 L Mean Corpuscular Hemoglobin Concent 27.1 L Red Cell Distribution Width Platelet Count 448 H Mean Platelet Volume Immature Granulocytes % 0.300 Neutrophils % 73.2 Lymphocytes % 11.3 L Monocytes % 7.0 Eosinophils % 7.7 H Basophils % 0.5 Nucleated Red Blood Cells % 0.0 Immature Granulocytes # 0.040 H Neutrophils # 8.9 H Lymphocytes # 1.4 Monocytes # 0.9 Eosinophils # 0.9 H Basophils # 0.1 Nucleated Red Blood Cells # 0.0 Lipase 3824 H Lab Scanned Report BLOOD TRANSFUSION CC: KIMANI DIAL MD ; Exam/Review of Systems Exam Vitals Vital Signs Date Temp Pulse Resp B/P (MAP) Pulse Ox O2 O2 Flow FiO2 Time Delivery Rate 09/25/18 99.1 85 18 113/70 99 08:02 (84) 09/24/18 Room Air 14:09 Intake and Output 09/24/18 09/24/18 09/25/18 1515:00 23:00 07:00 IntakeIntake Total 1000 ml 850 ml 420 ml BalanceBalance 1000 ml 850 ml 420 ml Results Results 24hrs Laboratory Tests Test 09/25/18 05:11 09/25/18 07:03 White Blood Count 12.1 H Red Blood Count 4.67 L Hemoglobin 8.3 L Hematocrit 30.6 L Mean Corpuscular Volume 65.5 L Mean Corpuscular Hemoglobin 17.8 L Mean Corpuscular Hemoglobin Concent 27.1 L Red Cell Distribution Width Platelet Count 448 H Mean Platelet Volume Immature Granulocytes % 0.300 Neutrophils % 73.2 Lymphocytes % 11.3 L Monocytes % 7.0 Eosinophils % 7.7 H Basophils % 0.5 Nucleated Red Blood Cells % 0.0 Immature Granulocytes # 0.040 H Neutrophils # 8.9 H Lymphocytes # 1.4 Monocytes # 0.9 Eosinophils # 0.9 H Basophils # 0.1 Nucleated Red Blood Cells # 0.0 Lipase 3824 H Lab Scanned Report BLOOD TRANSFUSION Medications Medication Current Medications IV Flush (NS 3 ml) 3 ml PER PROTOCOL IV ; Start 09/21/18 at 14:00 Ondansetron HCl (Zofran Inj) 4 mg Q6H PRN IV NAUSEA/VOMITING; Start 09/21/18 at 14:00 Acetaminophen (Tylenol Tab) 650 mg Q6H PRN PO .PAIN 1-3 OR TEMP; Start 09/21/18 at 14:00 Pantoprazole (Protonix Iv) 40 mg BID@06,18 IV Last administered on 09/25/18at 05:59; Admin Dose 40 MG; Start 09/21/18 at 18:00 Ferric Sodium Gluconate Complex 125 mg/Sodium Chloride 110 ml @ 110 mls/hr DAILY@1300 IVPB Last administered on 09/25/18at 12:41; Admin Dose 110 MLS/HR; Start 09/22/18 at 13:00; Stop 09/26/18 at 13:59 Ciprofloxacin/ Dextrose 200 ml @ 200 mls/hr Q12 IVPB Last administered on 09/25/18at 09:02; Admin Dose 200 MLS/HR; Start 09/23/18 at 12:00 Metronidazole 100 ml @ 100 mls/hr Q8 IVPB Last administered on 09/25/18at 13:43; Admin Dose 100 MLS/HR; Start 09/23/18 at 14:00 JONES MUSA NP Sep 25, 2018 14:46
[2018-09-25 20:41] VITALS: BP 113/68; PULSE 69; RESP 20
[2018-09-26 02:37] VITALS: BP 113/72; PULSE 73; RESP 20
[2018-09-26] MEDS: metroNIDAZOLE 500 MG/NS (PMX) 100 ML IVPB SCH ×3 (06:02→22:35)
[2018-09-26] MEDS: PANTOPRAZOLE 40 MG INJ IV SCH ×2 (06:03→18:32)
[2018-09-26 08:03] VITALS: BP 117/71; PULSE 88; RESP 18
[2018-09-26] MEDS: CIPROFLOXACIN 400MG/D5W 200 ML IVPB SCH ×2 (09:50→20:46)
--- NOTE | 2018-09-26 11:15 | PN ---
Date/Time of Note Date/Time of Note DATE: 09/26/18 TIME: 11:12 Assessment/Plan VTE Prophylaxis Risk score (from Ns)>0 risk: 1 SCD applied (from Ns): Yes Pharmacological prophylaxis: NA/contraindicated Pharm contraindication: low risk/ambulating Lines/Catheters [facility] Saline Lock Urinary Cath still in place: No Assessment/Plan Hospital Course SUBJECTIVE: No acute events. No abdominal pain, nausea, vomiting. No diarrhea. Tolerating diet. OBJECTIVE: Vital signs-see below PHYSICAL EXAM: Constitutional: Adequately built,not in acute distress. HEENT: Head atraumatic and normocephalic. Eyes: Extraocular muscles intact. Anicteric sclerae. Pupils equal bilaterally, reactive to light. NECK: Supple without lymph node. CHEST: Clear and good breath sounds equally. No wheezing. No rhonchi. HEART: S1, S2. Regular rate and rhythm. ABDOMEN: Soft/non tender with no rebound tenderness. Bowel sounds were present. EXTREMITIES: No cyanosis, clubbing or edema. NEUROLOGIC: Alert and oriented x3. No focal deficit. No sensory deficit. PSYCHOSOCIAL: No signs of depression. INTEGUMENTARY: No open wounds. ASSESSMENT AND PLAN:33 yo w/no pmh admitted with generalized weakness x5 days followed by diarrhea x2 days, found to have severe anemia /pancolitis Symptomatic anemia -s/p tx-HH improved -stool OB negative -s/p.IV iron,transition to oral today Diffuse pancolitis/possible ulcerative colitis -Symptoms improving. -mgmt per GI -F/u biopsy -cont.cipr/flagyl -stool cs Coliform Questionable mass on sigmoid colon Colonoscopy: Diffuse pancolitis suggestive of ulcerative colitis with 4 cm mass at the anal verge. -CEA negative. Follow-up biopsy. -appreciates surgical follow-up. Will need staging once pathology report comes(left message w/ to look out for path report and further recs) -Depending pathology report, will consider colorectal surgery involvement. Elevated lipase, ? concurrent -No abdominal pain. No evidence to suggest pancreatitis on CT. -Diet as tolerated. DVT prophylaxis: SCDs PUD prophylaxis: PPI Disposition: As of now, colonoscopy otology is pending, will have to wait until biopsy comes back for further treatment modalities. This was discussed with patient and his family at bedside and answered questions to satisfaction. Patient was seen in collaboration with Dr. Bee Result Diagram: 09/26/18 0638 09/26/18 0638 Results 24hrs Laboratory Tests Test 09/26/18 06:38 White Blood Count 8.5 # Red Blood Count 4.69 L Hemoglobin 8.4 L Hematocrit 30.8 L Mean Corpuscular Volume 65.7 L Mean Corpuscular Hemoglobin 17.9 L Mean Corpuscular Hemoglobin Concent 27.3 L Red Cell Distribution Width Platelet Count 472 H Mean Platelet Volume Immature Granulocytes % 0.400 Neutrophils % 64.0 Lymphocytes % 17.0 Monocytes % 6.1 Eosinophils % 11.9 H Basophils % 0.6 Nucleated Red Blood Cells % 0.0 Immature Granulocytes # 0.030 Neutrophils # 5.4 Lymphocytes # 1.4 Monocytes # 0.5 Eosinophils # 1.0 H Basophils # 0.1 Nucleated Red Blood Cells # 0.0 Sodium Level 140 Potassium Level 3.6 Chloride Level 109 Carbon Dioxide Level 23 Anion Gap 8 Blood Urea Nitrogen 5 L Creatinine 0.90 Est Glomerular Filtrat Rate mL/min > 60 Glucose Level 90 Calcium Level 8.6 Total Bilirubin 0.3 Direct Bilirubin 0.00 Indirect Bilirubin 0.3 Aspartate Amino Transf (AST/SGOT) 42 Alanine Aminotransferase (ALT/SGPT) 14 Alkaline Phosphatase 49 Total Protein 6.2 Albumin 2.9 L Globulin 3.30 H Albumin/Globulin Ratio 0.87 Lipase 3222 H Exam/Review of Systems Exam Vitals Vital Signs Date Temp Pulse Resp B/P (MAP) Pulse Ox O2 O2 Flow FiO2 Time Delivery Rate 09/26/18 98.2 88 18 117/71 100 08:03 (86) 09/24/18 Room Air 14:09 Intake and Output 09/25/18 09/25/18 09/26/18 1515:00 23:00 07:00 IntakeIntake Total 910 ml 1000 ml 100 ml BalanceBalance 910 ml 1000 ml 100 ml Results Results 24hrs Laboratory Tests Test 09/26/18 06:38 White Blood Count 8.5 # Red Blood Count 4.69 L Hemoglobin 8.4 L Hematocrit 30.8 L Mean Corpuscular Volume 65.7 L Mean Corpuscular Hemoglobin 17.9 L Mean Corpuscular Hemoglobin Concent 27.3 L Red Cell Distribution Width Platelet Count 472 H Mean Platelet Volume Immature Granulocytes % 0.400 Neutrophils % 64.0 Lymphocytes % 17.0 Monocytes % 6.1 Eosinophils % 11.9 H Basophils % 0.6 Nucleated Red Blood Cells % 0.0 Immature Granulocytes # 0.030 Neutrophils # 5.4 Lymphocytes # 1.4 Monocytes # 0.5 Eosinophils # 1.0 H Basophils # 0.1 Nucleated Red Blood Cells # 0.0 Sodium Level 140 Potassium Level 3.6 Chloride Level 109 Carbon Dioxide Level 23 Anion Gap 8 Blood Urea Nitrogen 5 L Creatinine 0.90 Est Glomerular Filtrat Rate mL/min > 60 Glucose Level 90 Calcium Level 8.6 Total Bilirubin 0.3 Direct Bilirubin 0.00 Indirect Bilirubin 0.3 Aspartate Amino Transf (AST/SGOT) 42 Alanine Aminotransferase (ALT/SGPT) 14 Alkaline Phosphatase 49 Total Protein 6.2 Albumin 2.9 L Globulin 3.30 H Albumin/Globulin Ratio 0.87 Lipase 3222 H Medications Medication Current Medications IV Flush (NS 3 ml) 3 ml PER PROTOCOL IV ; Start 09/21/18 at 14:00 Ondansetron HCl (Zofran Inj) 4 mg Q6H PRN IV NAUSEA/VOMITING; Start 09/21/18 at 14:00 Acetaminophen (Tylenol Tab) 650 mg Q6H PRN PO .PAIN 1-3 OR TEMP; Start 09/21/18 at 14:00 Pantoprazole (Protonix Iv) 40 mg BID@06,18 IV Last administered on 09/26/18at 06:03; Admin Dose 40 MG; Start 09/21/18 at 18:00 Ferric Sodium Gluconate Complex 125 mg/Sodium Chloride 110 ml @ 110 mls/hr DAILY@1300 IVPB Last administered on 09/25/18at 12:41; Admin Dose 110 MLS/HR; Start 09/22/18 at 13:00; Stop 09/26/18 at 13:59 Ciprofloxacin/ Dextrose 200 ml @ 200 mls/hr Q12 IVPB Last administered on 09/26/18at 09:50; Admin Dose 200 MLS/HR; Start 09/23/18 at 12:00 Metronidazole 100 ml @ 100 mls/hr Q8 IVPB Last administered on 09/26/18at 06:02; Admin Dose 100 MLS/HR; Start 09/23/18 at 14:00 RON PIERCE NP Sep 26, 2018 11:15
[2018-09-26] MEDS: SOD FERRIC GLUC COMPLX 125 MG in SOD CHLORIDE 0.9% 100 ML IVPB SCH (12:30)
--- NOTE | 2018-09-26 14:12 | CONS ---
Assessment/Plan Assessment/Plan Hospital Course (Demo Recall) #Sigmoid mass #Iron deficiency anemia 2/2/ GI bleed -Biopsy of the sigmoid mass does not reveal evidence of malignancy. It does however reveal evidence of ulcerative colitis -Furthermore the CT A?P reveals evidence of pancolitis and mesenteric LAD but no evidence of metastatic cancer -At this time there is no indication for oncologic intervention -continue IV iron for iron deficiency anemia Thank you for the opportunity to participate in this patients care A total of 40 minutes of face to face time was spent speaking with the patient, of which greater than 50% was spent in counseling and coordination of care and the detailed question and answer session. Consultation Date/Type/Reason Admit Date/Time 09/21/18 Date of Consultation: Sep 26, 2018 Type of Consult oncology Reason for Consultation sigmoid colon ca Requesting Provider: RON PIERCE NP Date/Time of Note DATE: 09/26/18 TIME: 14:00 Hx of Present Illness 33yo male with history of GERD who on 09/21/18 presented to ED with weakness x 5 days and nonbloody diarrhea. In the ER pt was noted to be severely anemic with a Hg 5, platelets 548 and lipase 1406. 09/22/18 CT A/P was done which demonstrated pancolitis concerning for ulcerative colitis. Also seen were multiple mesenteric lymph nodes measuring up to 1.1 cm. also noted is a rounded 3.8cm mass with mild enhancement in the lumen of the mid-sigmoid colon concerning for colonic mass. Hepatosplenomegaly is also noted. PT has since received 4 units of PRBCs blood transfusion and has received IV i bhavana. 09/23/18 pt underwent colonoscopy which revealed a 4cm mass 35 cm from anal verge. Bx reveals a tubular adenoma with focal moderate dysplasia which is most consistent with ulcerative colitis Constitutional: poor po Eyes: no complaints ENT: no complaints Respiratory: no complaints, pleuritic pain, shortness of breath Cardiovascular: no complaints Gastrointestinal: no complaints Genitourinary: no complaints Musculoskeletal: back pain, bone/joint pain Neurologic: no complaints Endocrine: no complaints Lymphatic: no complaints Past Medical History Medical History: no pertinent history Home Meds Discontinued Scripts Ondansetron (Ondansetron Odt) 8 Mg Tab.rapdis, 8 MG PO Q6H PRN for NAUSEA AND/OR VOMITING, #10 TAB Prov:BLANQUITA TORRES 05/26/18 Acetaminophen* (Tylophen*) 500 Mg Capsule, 2 CAP PO Q8H PRN for PAIN AND OR ELEVATED TEMP, #20 CAP Prov:BLANQUITA TORRES 05/26/18 Medications Current Medications IV Flush (NS 3 ml) 3 ml PER PROTOCOL IV ; Start 09/21/18 at 14:00 Ondansetron HCl (Zofran Inj) 4 mg Q6H PRN IV NAUSEA/VOMITING; Start 09/21/18 at 14:00 Acetaminophen (Tylenol Tab) 650 mg Q6H PRN PO .PAIN 1-3 OR TEMP; Start 09/21/18 at 14:00 Pantoprazole (Protonix Iv) 40 mg BID@06,18 IV Last administered on 09/26/18at 06 :03; Admin Dose 40 MG; Start 09/21/18 at 18:00 Ferric Sodium Gluconate Complex 125 mg/Sodium Chloride 110 ml @ 110 mls/hr DAILY@1300 IVPB Last administered on 09/26/18at 12:30; Admin Dose 110 MLS/HR; Start 09/22/18 at 13:00; Stop 09/26/18 at 13:59 Ciprofloxacin/ Dextrose 200 ml @ 200 mls/hr Q12 IVPB Last administered on 09/26/18at 09:50; Admin Dose 200 MLS/HR; Start 09/23/18 at 12:00 Metronidazole 100 ml @ 100 mls/hr Q8 IVPB Last administered on 09/26/18at 06:02; Admin Dose 100 MLS/HR; Start 09/23/18 at 14:00 Ferrous Sulfate (Ferrous Sulfate (Ec)) 325 mg BID PO ; Start 09/26/18 at 21:00 Allergies: Coded Allergies: No Known Allergy (Unverified , 09/21/18) Past Surgical History Past Surgical Hx: no surgical history Family History Significant Family History: no pertinent family hx Social History Alcohol Use: none Smoking Status: Never smoker Drug Use: none Exam/Review of Systems Exam Vitals Vital Signs Date Temp Pulse Resp B/P (MAP) Pulse Ox O2 O2 Flow FiO2 Time Delivery Rate 09/26/18 98.2 88 18 117/71 100 08:03 (86) 09/24/18 Room Air 14:09 Intake and Output 09/25/18 09/25/18 09/26/18 1515:00 23:00 07:00 IntakeIntake Total 910 ml 1000 ml 100 ml BalanceBalance 910 ml 1000 ml 100 ml Constitutional: alert, oriented Psych: no complaints Head: normocephalic Eyes: nl conjunctiva ENMT: nl external ears & nose Neck: supple Respiratory: clear to auscultation Cardiovascular: regular rate and rhythm Gastrointestinal: soft Musculoskeletal: nl extremities to inspection Results Result Diagram: 09/26/18 0638 09/26/18 0638 Results 24hrs Laboratory Tests Test 09/26/18 06:38 White Blood Count 8.5 # Red Blood Count 4.69 L Hemoglobin 8.4 L Hematocrit 30.8 L Mean Corpuscular Volume 65.7 L Mean Corpuscular Hemoglobin 17.9 L Mean Corpuscular Hemoglobin Concent 27.3 L Red Cell Distribution Width Platelet Count 472 H Mean Platelet Volume Immature Granulocytes % 0.400 Neutrophils % 64.0 Lymphocytes % 17.0 Monocytes % 6.1 Eosinophils % 11.9 H Basophils % 0.6 Nucleated Red Blood Cells % 0.0 Immature Granulocytes # 0.030 Neutrophils # 5.4 Lymphocytes # 1.4 Monocytes # 0.5 Eosinophils # 1.0 H Basophils # 0.1 Nucleated Red Blood Cells # 0.0 Sodium Level 140 Potassium Level 3.6 Chloride Level 109 Carbon Dioxide Level 23 Anion Gap 8 Blood Urea Nitrogen 5 L Creatinine 0.90 Est Glomerular Filtrat Rate mL/min > 60 Glucose Level 90 Calcium Level 8.6 Total Bilirubin 0.3 Direct Bilirubin 0.00 Indirect Bilirubin 0.3 Aspartate Amino Transf (AST/SGOT) 42 Alanine Aminotransferase (ALT/SGPT) 14 Alkaline Phosphatase 49 Total Protein 6.2 Albumin 2.9 L Globulin 3.30 H Albumin/Globulin Ratio 0.87 Lipase 3222 H Medications Medication Current Medications IV Flush (NS 3 ml) 3 ml PER PROTOCOL IV ; Start 09/21/18 at 14:00 Ondansetron HCl (Zofran Inj) 4 mg Q6H PRN IV NAUSEA/VOMITING; Start 09/21/18 at 14:00 Acetaminophen (Tylenol Tab) 650 mg Q6H PRN PO .PAIN 1-3 OR TEMP; Start 09/21/18 at 14:00 Pantoprazole (Protonix Iv) 40 mg BID@,18 IV Last administered on 09/26/18at 06:03; Admin Dose 40 MG; Start 09/21/18 at 18:00 Ferric Sodium Gluconate Complex 125 mg/Sodium Chloride 110 ml @ 110 mls/hr DAILY@1300 IVPB Last administered on 09/26/18at 12:30; Admin Dose 110 MLS/HR; Start 09/22/18 at 13:00; Stop 09/26/18 at 13:59 Ciprofloxacin/ Dextrose 200 ml @ 200 mls/hr Q12 IVPB Last administered on 09/26/18at 09:50; Admin Dose 200 MLS/HR; Start 09/23/18 at 12:00 Metronidazole 100 ml @ 100 mls/hr Q8 IVPB Last administered on 09/26/18at 06:02; Admin Dose 100 MLS/HR; Start 09/23/18 at 14:00 Ferrous Sulfate (Ferrous Sulfate (Ec)) 325 mg BID PO ; Start 09/26/18 at 21:00 CHARU LARSON M.D. Sep 26, 2018 14:11
[2018-09-26 14:16] VITALS: BP 130/78; PULSE 102; RESP 18
--- NOTE | 2018-09-26 17:20 | PN ---
Date/Time of Note Date/Time of Note DATE: 09/26/18 TIME: 17:11 Assessment/Plan VTE Prophylaxis Risk score (from Ns)>0 risk: 1 SCD applied (from Ns): Yes Pharmacological prophylaxis: NA/contraindicated Pharm contraindication: bleeding Lines/Catheters [facility] Saline Lock Urinary Cath still in place: No Assessment/Plan Hospital Course Assessment: Ulcerative Colitis Severe iron deficiency anemia/Diarrhea -Ct- abd/pelvis - pancolitis, Rounded 3.8 cm mass-like structure with mild enhancement in the lumen of the mid sigmoid colon concerning for colonic mass/polyp -Elevated ESR/CRP- query underlying IBD? Status post EGD 09/23/18: -Acute gastritis -Esophagitis Grade C -Mild gastropathy, biopsies taken for H Pylori Colonoscopy 09/23/18: -Findings consistent with ulcerative colitis -4 cm malignant appearing mass 35 cm from the anal verge Weakness secondary to above Thrombocytosis likely reactive Elevated lipase- stable though remains elevated despite abdominal pain Excessive weight loss- 80+ lbs in 7 months Hepatosplenomegaly. Plan: pathology reviewed- bx consistent with UC 4 cm mass at anal verge - bx shows TA- recommendations for removal Recommend colo-rectal sx consult Will start mesalamine 800 mg p.o. 3 times daily and Solu-Medrol 20 mg IV every 8 hours- given bx results Continue regular diet Monitor H/H transfuse as needed, stable at this time Patient seen in collaboration with Dr. Dial Subjective: Patient is doing well, tolerating regular diet. No over night events. Diarrhea has improved- patients states he has 3-4 episodes per day with some blood noted No c/o n/v or abdominal pain. discussed pathology results with patient. Unclear if he fully understandings. Tried to explain in different manner. Pt verbalized understanding Will reinforce dx with patient. Exam PHYSICAL EXAMINATION: GENERAL: Pale, alert & oriented x 3, in no acute distress SKIN: No lesions CHEST: Inspection within normal limits. CARDIOVASCULAR: Heart: Regular rate and rhythm, RESPIRATORY: Lungs clear to auscultation GASTROINTESTINAL AND LIVER: Abdomen: Soft, non tender, non-distended, no hernias, no masses, no organomegaly, no ascites, no guarding, no rebound tenderness, normoactive bowel sounds. Rectal: Deferred EXTREMITIES: No cyanosis, clubbing or edema. Result Diagram: 09/26/18 0638 09/26/18 0638 Results 24hrs Laboratory Tests Test 09/26/18 06:38 White Blood Count 8.5 # Red Blood Count 4.69 L Hemoglobin 8.4 L Hematocrit 30.8 L Mean Corpuscular Volume 65.7 L Mean Corpuscular Hemoglobin 17.9 L Mean Corpuscular Hemoglobin Concent 27.3 L Red Cell Distribution Width Platelet Count 472 H Mean Platelet Volume Immature Granulocytes % 0.400 Neutrophils % 64.0 Lymphocytes % 17.0 Monocytes % 6.1 Eosinophils % 11.9 H Basophils % 0.6 Nucleated Red Blood Cells % 0.0 Immature Granulocytes # 0.030 Neutrophils # 5.4 Lymphocytes # 1.4 Monocytes # 0.5 Eosinophils # 1.0 H Basophils # 0.1 Nucleated Red Blood Cells # 0.0 Sodium Level 140 Potassium Level 3.6 Chloride Level 109 Carbon Dioxide Level 23 Anion Gap 8 Blood Urea Nitrogen 5 L Creatinine 0.90 Est Glomerular Filtrat Rate mL/min > 60 Glucose Level 90 Calcium Level 8.6 Total Bilirubin 0.3 Direct Bilirubin 0.00 Indirect Bilirubin 0.3 Aspartate Amino Transf (AST/SGOT) 42 Alanine Aminotransferase (ALT/SGPT) 14 Alkaline Phosphatase 49 Total Protein 6.2 Albumin 2.9 L Globulin 3.30 H Albumin/Globulin Ratio 0.87 Lipase 3222 H Exam/Review of Systems Exam Vitals Vital Signs Date Temp Pulse Resp B/P (MAP) Pulse Ox O2 O2 Flow FiO2 Time Delivery Rate 09/26/18 98.8 102 18 130/78 99 14:16 (95) 09/24/18 Room Air 14:09 Intake and Output 09/25/18 09/25/18 09/26/18 1414:59 22:59 06:59 IntakeIntake Total 910 ml 1000 ml 100 ml BalanceBalance 910 ml 1000 ml 100 ml Results Results 24hrs Laboratory Tests Test 09/26/18 06:38 White Blood Count 8.5 # Red Blood Count 4.69 L Hemoglobin 8.4 L Hematocrit 30.8 L Mean Corpuscular Volume 65.7 L Mean Corpuscular Hemoglobin 17.9 L Mean Corpuscular Hemoglobin Concent 27.3 L Red Cell Distribution Width Platelet Count 472 H Mean Platelet Volume Immature Granulocytes % 0.400 Neutrophils % 64.0 Lymphocytes % 17.0 Monocytes % 6.1 Eosinophils % 11.9 H Basophils % 0.6 Nucleated Red Blood Cells % 0.0 Immature Granulocytes # 0.030 Neutrophils # 5.4 Lymphocytes # 1.4 Monocytes # 0.5 Eosinophils # 1.0 H Basophils # 0.1 Nucleated Red Blood Cells # 0.0 Sodium Level 140 Potassium Level 3.6 Chloride Level 109 Carbon Dioxide Level 23 Anion Gap 8 Blood Urea Nitrogen 5 L Creatinine 0.90 Est Glomerular Filtrat Rate mL/min > 60 Glucose Level 90 Calcium Level 8.6 Total Bilirubin 0.3 Direct Bilirubin 0.00 Indirect Bilirubin 0.3 Aspartate Amino Transf (AST/SGOT) 42 Alanine Aminotransferase (ALT/SGPT) 14 Alkaline Phosphatase 49 Total Protein 6.2 Albumin 2.9 L Globulin 3.30 H Albumin/Globulin Ratio 0.87 Lipase 3222 H Medications Medication Current Medications IV Flush (NS 3 ml) 3 ml PER PROTOCOL IV ; Start 09/21/18 at 14:00 Ondansetron HCl (Zofran Inj) 4 mg Q6H PRN IV NAUSEA/VOMITING; Start 09/21/18 at 14:00 Acetaminophen (Tylenol Tab) 650 mg Q6H PRN PO .PAIN 1-3 OR TEMP; Start 09/21/18 at 14:00 Pantoprazole (Protonix Iv) 40 mg BID@06,18 IV Last administered on 09/26/18at 06:03; Admin Dose 40 MG; Start 09/21/18 at 18:00 Ciprofloxacin/ Dextrose 200 ml @ 200 mls/hr Q12 IVPB Last administered on 09/26/18at 09:50; Admin Dose 200 MLS/HR; Start 09/23/18 at 12:00 Metronidazole 100 ml @ 100 mls/hr Q8 IVPB Last administered on 09/26/18at 14:09; Admin Dose 100 MLS/HR; Start 09/23/18 at 14:00 Ferrous Sulfate (Ferrous Sulfate (Ec)) 325 mg BID PO ; Start 09/26/18 at 21:00 PAL HOOPER Sep 26, 2018 17:20
[2018-09-26 20:00] VITALS: BP 118/69; PULSE 78; RESP 18
[2018-09-26] MEDS: MESALAMINE (EC) 400 MG CAP PO SCH (20:45)
[2018-09-26] MEDS: FERROUS SULFATE (EC) 325 MG TAB PO SCH (20:45)
[2018-09-26] MEDS: METHYLPREDNISOLONE 40 MG INJ IV SCH (22:35)
[2018-09-27] MEDS: METHYLPREDNISOLONE 40 MG INJ IV SCH ×3 (05:21→21:04)
[2018-09-27] MEDS: PANTOPRAZOLE 40 MG INJ IV SCH ×2 (05:21→18:02)
[2018-09-27] MEDS: metroNIDAZOLE 500 MG/NS (PMX) 100 ML IVPB SCH (05:22)
[2018-09-27 07:59] VITALS: BP 116/68; PULSE 79; RESP 17
[2018-09-27] MEDS: MESALAMINE (EC) 400 MG CAP PO SCH ×3 (09:14→20:18)
[2018-09-27] MEDS: FERROUS SULFATE (EC) 325 MG TAB PO SCH ×2 (09:14→20:18)
[2018-09-27] MEDS: CIPROFLOXACIN 400MG/D5W 200 ML IVPB SCH (09:15)
--- NOTE | 2018-09-27 10:43 | PN ---
Date/Time of Note Date/Time of Note DATE: 09/27/18 TIME: 10:36 Assessment/Plan VTE Prophylaxis Risk score (from Ns)>0 risk: 1 SCD applied (from Ns): Yes Pharmacological prophylaxis: NA/contraindicated Pharm contraindication: low risk/ambulating Lines/Catheters [facility] Saline Lock Urinary Cath still in place: No Assessment/Plan Hospital Course SUBJECTIVE: No acute events. No abdominal pain, nausea, vomiting. No diarrhea. Tolerating diet. OBJECTIVE: Vital signs-see below PHYSICAL EXAM: Constitutional: Adequately built,not in acute distress. HEENT: Head atraumatic and normocephalic. Eyes: Extraocular muscles intact. Anicteric sclerae. Pupils equal bilaterally, reactive to light. NECK: Supple without lymph node. CHEST: Clear and good breath sounds equally. No wheezing. No rhonchi. HEART: S1, S2. Regular rate and rhythm. ABDOMEN: Soft/non tender with no rebound tenderness. Bowel sounds were present. EXTREMITIES: No cyanosis, clubbing or edema. NEUROLOGIC: Alert and oriented x3. No focal deficit. No sensory deficit. PSYCHOSOCIAL: No signs of depression. INTEGUMENTARY: No open wounds. ASSESSMENT AND PLAN:33 yo w/no pmh admitted with generalized weakness x5 days followed by diarrhea x2 days, found to have severe anemia /pancolitis with sigmoid colon mass consistent with tubular adenoma. Symptomatic anemia w/iron deficiency and underlying inflammatory disease -s/p tx-HH improved -stool OB negative -s/p.IV iron,cont.oral therapy IBD/Ulcerative colitis -Symptoms improved -mgmt per GI-started on Mesalamine/steroids. -stop cipr/flagyl -stool cs Coliform Sigmoid colon mass consistent w/Tubular adenoma -Pathology reviewed and d/w patient w/Arabic translation. -Probably need colectomy w/possible pouch--Colorectal surgical consult w/ requested-f/u recs Acute gastritis -Stable. Continue PPI Elevated lipase, likely concurrent -no clinical or radiographic signs to suspect pancreatitis -Diet as tolerated. DVT prophylaxis: SCDs PUD prophylaxis: PPI Disposition: I had a lengthy discussion of pathology finding with next step which would be a colorectal surgical consult. Questions answered to sa rajan. Patient was seen in collaboration with Dr. Bee Result Diagram: 09/27/18 0702 09/26/18 0638 Results 24hrs Laboratory Tests Test 09/27/18 07:02 White Blood Count 7.8 Red Blood Count 4.99 Hemoglobin 9.0 L Hematocrit 33.2 L Mean Corpuscular Volume 66.5 L Mean Corpuscular Hemoglobin 18.0 L Mean Corpuscular Hemoglobin Concent 27.1 L Red Cell Distribution Width Platelet Count 537 H Mean Platelet Volume Immature Granulocytes % 0.500 H Neutrophils % 85.5 H Lymphocytes % 10.5 L Monocytes % 2.7 Eosinophils % 0.4 Basophils % 0.4 Nucleated Red Blood Cells % 0.0 Immature Granulocytes # 0.040 H Neutrophils # 6.7 Lymphocytes # 0.8 Monocytes # 0.2 L Eosinophils # 0.0 Basophils # 0.0 Nucleated Red Blood Cells # 0.0 Exam/Review of Systems Exam Vitals Vital Signs Date Temp Pulse Resp B/P (MAP) Pulse Ox O2 O2 Flow FiO2 Time Delivery Rate 09/27/18 98.3 79 17 116/68 99 07:59 (84) 09/24/18 Room Air 14:09 Intake and Output 09/26/18 09/26/18 09/27/18 1515:00 23:00 07:00 IntakeIntake Total 890 ml 540 ml 960 ml OutputOutput Total 3 ml BalanceBalance 890 ml 540 ml 957 ml Results Results 24hrs Laboratory Tests Test 09/27/18 07:02 White Blood Count 7.8 Red Blood Count 4.99 Hemoglobin 9.0 L Hematocrit 33.2 L Mean Corpuscular Volume 66.5 L Mean Corpuscular Hemoglobin 18.0 L Mean Corpuscular Hemoglobin Concent 27.1 L Red Cell Distribution Width Platelet Count 537 H Mean Platelet Volume Immature Granulocytes % 0.500 H Neutrophils % 85.5 H Lymphocytes % 10.5 L Monocytes % 2.7 Eosinophils % 0.4 Basophils % 0.4 Nucleated Red Blood Cells % 0.0 Immature Granulocytes # 0.040 H Neutrophils # 6.7 Lymphocytes # 0.8 Monocytes # 0.2 L Eosinophils # 0.0 Basophils # 0.0 Nucleated Red Blood Cells # 0.0 Medications Medication Current Medications IV Flush (NS 3 ml) 3 ml PER PROTOCOL IV ; Start 09/21/18 at 14:00 Ondansetron HCl (Zofran Inj) 4 mg Q6H PRN IV NAUSEA/VOMITING; Start 09/21/18 at 14:00 Acetaminophen (Tylenol Tab) 650 mg Q6H PRN PO .PAIN 1-3 OR TEMP; Start 09/21/18 at 14:00 Pantoprazole (Protonix Iv) 40 mg BID@06,18 IV Last administered on 09/27/18 0 5:21; Admin Dose 40 MG; Start 09/21/18 at 18:00 Ciprofloxacin/ Dextrose 200 ml @ 200 mls/hr Q12 IVPB Last administered on 09/27/18 09:15; Admin Dose 200 MLS/HR; Start 09/23/18 at 12:00 Metronidazole 100 ml @ 100 mls/hr Q8 IVPB Last administered on 09/27/18 05:22; Admin Dose 100 MLS/HR; Start 09/23/18 at 14:00 Ferrous Sulfate (Ferrous Sulfate (Ec)) 325 mg BID PO Last administered on 09/27/18 09:14; Admin Dose 325 MG; Start 09/26/18 at 21:00 Mesalamine (Delzicol Dr) 800 mg TID PO Last administered on 09/27/18 09:14; Admin Dose 800 MG; Start 09/26/18 at 21:00 Methylprednisolone Sodium Succinate (Solu-Medrol) 20 mg Q8 IV Last administered on 09/27/18 05:21; Admin Dose 20 MG; Start 09/26/18 at 22:00 RON PIERCE NP Sep 27, 2018 10:43
--- NOTE | 2018-09-27 11:11 | CONS ---
Assessment/Plan Assessment/Plan Hospital Course (Demo Recall) #Sigmoid mass #Iron deficiency anemia 2/2/ GI bleed -Biopsy of the sigmoid mass does not reveal evidence of malignancy. It does however reveal evidence of ulcerative colitis -Furthermore the CT A?P reveals evidence of pancolitis and mesenteric LAD but no evidence of metastatic cancer -At this time there is no indication for oncologic intervention. Agree with surgical consult to see if patient would benefit from hemicolectomy. if there is evidence of cancer at that time, we would appropriately treat the patient -s/p IV iron for iron deficiency anemia Thank you for the opportunity to participate in this patients care A total of 40 minutes of face to face time was spent speaking with the patient, of which greater than 50% was spent in counseling and coordination of care and the detailed question and answer session. Consultation Date/Type/Reason Admit Date/Time Sep 21, 2018 at 12:54 Initial Consult Date 09/26/18 Type of Consult oncology Reason for Consultation iron deficiency anemia, sigmoid mass Requesting Provider: RON PIERCE NP Date/Time of Note DATE: 09/27/18 TIME: 11:08 24 HR Interval Summary Free Text/Dictation pt has been seen by GI and was started on mesalamine, steroids and flagyl Exam/Review of Systems Exam Vitals Vital Signs Date Temp Pulse Resp B/P (MAP) Pulse Ox O2 O2 Flow FiO2 Time Delivery Rate 09/27/18 98.3 79 17 116/68 99 07:59 (84) 09/24/18 Room Air 14:09 Intake and Output 09/26/18 09/26/18 09/27/18 1515:00 23:00 07:00 IntakeIntake Total 890 ml 540 ml 960 ml OutputOutput Total 3 ml BalanceBalance 890 ml 540 ml 957 ml Constitutional: alert, oriented Psych: no complaints Head: normocephalic Eyes: nl conjunctiva, EOMI ENMT: nl external ears & nose Neck: supple Respiratory: clear to auscultation Cardiovascular: regular rate and rhythm Gastrointestinal: soft Musculoskeletal: nl extremities to inspection Extremities: normal pulses Results Result Diagram: 09/27/18 0702 09/26/18 0638 Results 24hrs Laboratory Tests Test 09/27/18 07:02 White Blood Count 7.8 Red Blood Count 4.99 Hemoglobin 9.0 L Hematocrit 33.2 L Mean Corpuscular Volume 66.5 L Mean Corpuscular Hemoglobin 18.0 L Mean Corpuscular Hemoglobin Concent 27.1 L Red Cell Distribution Width Platelet Count 537 H Mean Platelet Volume Immature Granulocytes % 0.500 H Neutrophils % 85.5 H Lymphocytes % 10.5 L Monocytes % 2.7 Eosinophils % 0.4 Basophils % 0.4 Nucleated Red Blood Cells % 0.0 Immature Granulocytes # 0.040 H Neutrophils # 6.7 Lymphocytes # 0.8 Monocytes # 0.2 L Eosinophils # 0.0 Basophils # 0.0 Nucleated Red Blood Cells # 0.0 Medications Medication Current Medications IV Flush (NS 3 ml) 3 ml PER PROTOCOL IV ; Start 09/21/18 at 14:00 Ondansetron HCl (Zofran Inj) 4 mg Q6H PRN IV NAUSEA/VOMITING; Start 09/21/18 at 14:00 Acetaminophen (Tylenol Tab) 650 mg Q6H PRN PO .PAIN 1-3 OR TEMP; Start 09/21/18 at 14:00 Pantoprazole (Protonix Iv) 40 mg BID@06,18 IV Last administered on 09/27/18 05:21; Admin Dose 40 MG; Start 09/21/18 at 18:00 Ciprofloxacin/ Dextrose 200 ml @ 200 mls/hr Q12 IVPB Last administered on 09/27/18 09:15; Admin Dose 200 MLS/HR; Start 09/23/18 at 12:00 Metronidazole 100 ml @ 100 mls/hr Q8 IVPB Last administered on 09/27/18 05:22; Admin Dose 100 MLS/HR; Start 09/23/18 at 14:00 Ferrous Sulfate (Ferrous Sulfate (Ec)) 325 mg BID PO Last administered on 09/27/18 09:14; Admin Dose 325 MG; Start 09/26/18 at 21:00 Mesalamine (Delzicol Dr) 800 mg TID PO Last administered on 09/27/18 09:14; Admin Dose 800 MG; Start 09/26/18 at 21:00 Methylprednisolone Sodium Succinate (Solu-Medrol) 20 mg Q8 IV Last administered on 09/27/18 05:21; Admin Dose 20 MG; Start 09/26/18 at 22:00 CHARU LARSON M.D. Sep 27, 2018 11:11
[2018-09-27 14:16] VITALS: BP 118/68; PULSE 76; RESP 18
--- NOTE | 2018-09-27 16:31 | PN ---
Date/Time of Note Date/Time of Note DATE: 09/27/18 TIME: 16:29 Assessment/Plan VTE Prophylaxis Risk score (from Ns)>0 risk: 1 SCD applied (from Nsg): Yes Pharmacological prophylaxis: NA/contraindicated Pharm contraindication: low risk/ambulating Lines/Catheters [facility] Saline Lock Urinary Cath still in place: No Assessment/Plan Hospital Course Assessment: Ulcerative colitis - as noted on pathology as well as physical finding on colonoscopy Severe iron deficiency anemia/Diarrhea -Ct- abd/pelvis - pancolitis, Rounded 3.8 cm mass-like structure with mild enhancement in the lumen of the mid sigmoid colon concerning for colonic mass/po lyp -Elevated ESR/CRP- query underlying IBD? Status post EGD 09/23/18: -Acute gastritis -Esophagitis Grade C -Mild gastropathy, biopsies taken for H Pylori Colonoscopy 09/23/18: -Findings consistent with ulcerative colitis -4 cm malignant appearing mass 35 cm from the anal verge Weakness secondary to above Thrombocytosis likely reactive Elevated lipase- stable though remains elevated despite abdominal pain Excessive weight loss- 80+ lbs in 7 months Hepatosplenomegaly. Plan: 4 cm mass at anal verge - bx shows TA- recommendations for removal Recommend colo-rectal sx consult Continue mesalamine 800 mg p.o. 3 times daily and Solu-Medrol 20 mg IV every 8 hours- will plan to change ot prednisone 30 mg po BID- prior to d/c with taper - pt should be consider for biologic therapy in out-pt setting Continue regular diet Monitor H/H transfuse as needed, stable at this time Patient seen in collaboration with Dr. Dial Subjective: Patient is doing well, tolerating regular diet. No over night events. Continue to have loose stool x3 with blood noted Overall patient feels he is improving Exam PHYSICAL EXAMINATION: GENERAL: Pale, alert & oriented x 3, in no acute distress SKIN: No lesions CHEST: Inspection within normal limits. CARDIOVASCULAR: Heart: Regular rate and rhythm, RESPIRATORY: Lungs clear to auscultation GASTROINTESTINAL AND LIVER: Abdomen: Soft, non tender, non-distended, no hernias, no masses, no organomegaly, no ascites, no guarding, no rebound tenderness, normoactive bowel sounds. Rectal: Deferred EXTREMITIES: No cyanosis, clubbing or edema. Result Diagram: 09/27/18 0702 09/26/18 0638 Results 24hrs Laboratory Tests Test 09/27/18 07:02 White Blood Count 7.8 Red Blood Count 4.99 Hemoglobin 9.0 L Hematocrit 33.2 L Mean Corpuscular Volume 66.5 L Mean Corpuscular Hemoglobin 18.0 L Mean Corpuscular Hemoglobin Concent 27.1 L Red Cell Distribution Width Platelet Count 537 H Mean Platelet Volume Immature Granulocytes % 0.500 H Neutrophils % 85.5 H Lymphocytes % 10.5 L Monocytes % 2.7 Eosinophils % 0.4 Basophils % 0.4 Nucleated Red Blood Cells % 0.0 Immature Granulocytes # 0.040 H Neutrophils # 6.7 Lymphocytes # 0.8 Monocytes # 0.2 L Eosinophils # 0.0 Basophils # 0.0 Nucleated Red Blood Cells # 0.0 Exam/Review of Systems Exam Vitals Vital Signs Date Temp Pulse Resp B/P (MAP) Pulse Ox O2 O2 Flow FiO2 Time Delivery Rate 09/27/18 98.2 76 18 118/68 100 14:16 (85) 09/24/18 Room Air 14:09 Intake and Output 09/26/18 09/26/18 09/27/18 1515:00 23:00 07:00 IntakeIntake Total 890 ml 540 ml 960 ml OutputOutput Total 3 ml BalanceBalance 890 ml 540 ml 957 ml Results Results 24hrs Laboratory Tests Test 09/27/18 07:02 White Blood Count 7.8 Red Blood Count 4.99 Hemoglobin 9.0 L Hematocrit 33.2 L Mean Corpuscular Volume 66.5 L Mean Corpuscular Hemoglobin 18.0 L Mean Corpuscular Hemoglobin Concent 27.1 L Red Cell Distribution Width Platelet Count 537 H Mean Platelet Volume Immature Granulocytes % 0.500 H Neutrophils % 85.5 H Lymphocytes % 10.5 L Monocytes % 2.7 Eosinophils % 0.4 Basophils % 0.4 Nucleated Red Blood Cells % 0.0 Immature Granulocytes # 0.040 H Neutrophils # 6.7 Lymphocytes # 0.8 Monocytes # 0.2 L Eosinophils # 0.0 Basophils # 0.0 Nucleated Red Blood Cells # 0.0 Medications Medication Current Medications IV Flush (NS 3 ml) 3 ml PER PROTOCOL IV ; Start 09/21/18 at 14:00 Ondansetron HCl (Zofran Inj) 4 mg Q6H PRN IV NAUSEA/VOMITING; Start 09/21/18 at 14:00 Acetaminophen (Tylenol Tab) 650 mg Q6H PRN PO .PAIN 1-3 OR TEMP; Start 09/21/18 at 14:00 Pantoprazole (Protonix Iv) 40 mg BID@06,18 IV Last administered on 09/27/18 05:21; Admin Dose 40 MG; Start 09/21/18 at 18:00 Ferrous Sulfate (Ferrous Sulfate (Ec)) 325 mg BID PO Last administered on 09/27/18at 09:14; Admin Dose 325 MG; Start 09/26/18 at 21:00 Mesalamine (Delzicol Dr) 800 mg TID PO Last administered on 09/27/18 14:11; Admin Dose 800 MG; Start 09/26/18 at 21:00 Methylprednisolone Sodium Succinate (Solu-Medrol) 20 mg Q8 IV Last administered on 09/27/18 14:11; Admin Dose 20 MG; Start 09/26/18 at 22:00 PAL HOOPER Sep 27, 2018 16:31
[2018-09-27 20:00] VITALS: BP 128/74; PULSE 92; RESP 19
[2018-09-28 02:00] VITALS: BP 116/67; PULSE 67; RESP 18
[2018-09-28] MEDS: PANTOPRAZOLE 40 MG INJ IV SCH (06:20)
[2018-09-28] MEDS: METHYLPREDNISOLONE 40 MG INJ IV SCH ×2 (06:20→14:07)
[2018-09-28 07:47] VITALS: BP 122/73; PULSE 63; RESP 16
[2018-09-28] MEDS: MESALAMINE (EC) 400 MG CAP PO SCH ×2 (09:16→14:08)
[2018-09-28] MEDS: FERROUS SULFATE (EC) 325 MG TAB PO SCH (09:16)
--- NOTE | 2018-09-28 11:19 | PDOCDIS ---
Discharge Instructions CONDITION [id number] Patient Condition: [id number] Stable HOME CARE INSTRUCTIONS: [id number] Diet Instructions: [id number] Regular FOLLOW UP/APPOINTMENTS Follow-up Plan FOLLOW-UP WITH ([facility]) TODAY TO TO MAKE APPOINTMENT Telly Hampton MD Specialty Colon & Rectal Surgery Comments Office Address [address] [address], [address] [place] [address] Office Follow-up with primary care physician in 1 week. RON PIERCE NP Sep 28, 2018 11:19
--- NOTE | 2018-09-28 11:33 | DS ---
Date/Time of Note Date/Time of Note DATE: 09/28/18 TIME: 11:30 Discharge Summary Admission/Discharge Info Admit Date/Time Sep 21, 2018 at 12:54 Discharge Date/Time Discharge Diagnosis Symptomatic anemia w/iron deficiency and underlying inflammatory disease IBD/Ulcerative colitis Sigmoid colon mass consistent w/Tubular adenoma-Probably need colectomy w/possibleJ pouch--patient to follow-up at Dr. Hampton's office this week. Acute gastritis Elevated lipase, likely concurrent -no clinical or radiographic signs to suspect pancreatitis Patient Condition: Stable Consults dr.sUCHOV dr.lYASS Barrett Procedures 09/22/2018: CT abdomen and pelvis with and without contrast. IMPRESSION: 1. Findings consistent with pancolitis with inflammatory bowel disease including ulcerative colitis in the differential diagnosis. 2. Increased in size and number of multiple mesenteric lymph nodes measuring up to 1.1 cm. 3. Rounded 3.8 cm mass-like structure with mild enhancement in the lumen of the mid sigmoid colon concerning for colonic mass/polyp. Consider further evaluation with colonoscopy. 4. Hepatosplenomegaly. EGD 09/23/18: -Acute gastritis -Esophagitis Grade C -Mild gastropathy, biopsies taken for H Pylori Colonoscopy 09/23/18: -Findings consistent with ulcerative colitis -4 cm malignant appearing mass 35 cm from the anal verge Hx of Present Illness This is a 33-year-old male with a history of gastroesophageal reflux disease, presented to the emergency room with generalized weakness x5-day duration with intermittent nonbloody diarrhea. Patient denied nausea, vomiting, abdominal pain, loss of appetite, hematochezia, hematemesis, hemoptysis, melena . Patient also denied chest pain, shortness of breath, palpitation, dizziness, loss of consciousness, numbness, tingling, fever, chills, recent travel or contact with sick people. In the emergency room, patient's vital signs stable except for initially elevated pulse rate 112 which then normalized to 60s. Labs showed hemoglobin 5.0, hematocrit 21.0 with microcytic indicis, platelet 548 and lipase 1406. In ER, patient was given IV fluids and 2 units of PRBC has been ordered. Hospital Course 33 yo w/no pmh admitted with generalized weakness x5 days followed by diarrhea x2 days, found to have severe anemia /pancolitis with sigmoid colon mass consistent with tubular adenoma. Patient was noted with severe anemia also with iron deficiency. He was transfused [address] showed diffuse pancolitis with a 4 cm appearing sigmoid mass. Patient underwent EGD/colonoscopy on 09/23/2018 showed 4 cm mass at the anal verge and diffuse colitis with biopsy confirmed ulcerative colitis. Biopsy showed tubular adenoma without evidence of metastatic disease. Patient was referred to colorectal surgeon. Spoke with Dr. Hampton on the phone who will see patient in his clinic this week and patient will be delayed surgical intervention with possible J-pouch per Dr. Hampton. Hospitalization was also noted with elevated lipase with benign abdominal exam likely concurrent without evidence of symptomatic pancreatitis. Patient was able to tolerate diet and activities well. At this time, patient is feeling back to baseline and he is going to call Dr. Be office today to make an appointment for possible surgical intervention to be planned as elective. Patient also needed treatment for ulcerative colitis for which he was given prescription by GI [facility] [employer] [facility] for mesalamine and budesonide to take for 6 weeks. Approximately 60-minute was spent on coordinating the discharge on this patient. Patient was seen in collaboration with Dr. Bee. [facility] Active Scripts [Work Note] No Conflict Check Please excuse See Garcia attending work karen 09/21/2018 to 10/02/2018 due to his medical condition. Prov:RON PIERCE NP 09/28/18 Pantoprazole* (Protonix*) 40 Mg Tablet., 40 MG PO BID, #60 TAB Prov:RON PIERCE NP 09/28/18 Ferrous Sulfate* (Ferrous Sulfate*) 325 Mg Tabec, 325 MG PO BID, #100 TAB Prov:RON PIERCE NP 09/28/18 Discontinued Scripts Ondansetron (Ondansetron Odt) 8 Mg Tab.rapdis, 8 MG PO Q6H PRN for NAUSEA AND/OR VOMITING, #10 TAB Prov:BLANQUITA TORRES 05/26/18 Acetaminophen* (Tylophen*) 500 Mg Capsule, 2 CAP PO Q8H PRN for PAIN AND OR ELEVATED TEMP, #20 CAP Prov:BLANQUITA TORRES 05/26/18 Follow-up Plan FOLLOW-UP WITH ([facility] SURGEON) TODAY TO TO MAKE APPOINTMENT Telly Hampton MD Specialty Colon & Rectal Surgery Comments Office Address [address], [address] [place] [address] Office Follow-up with primary care physician in 1 week. Primary Care Provider Care Physician No Primary Pending Labs Laboratory Tests Test 09/28/18 05:10 White Blood Count 10.1 10^3/ul (4.8-10.8) Red Blood Count 4.79 10^6/ul (4.70-6.10) Hemoglobin 8.9 g/dl (14.0-18.0) Hematocrit 32.4 % (42.0-52.0) Mean Corpuscular Volume 67.6 fl (82.0-101.0) Mean Corpuscular Hemoglobin 18.6 pg (29.0-33.0) Mean Corpuscular Hemoglobin Concent 27.5 g/dl (32.0-37.0) Red Cell Distribution Width % (11.5-14.5) Platelet Count 519 10^3/UL (140-415) Mean Platelet Volume 8.7 fl (7.4-10.4) Immature Granulocytes % 0.700 % (0.001-0.429) Neutrophils % 76.9 % (39.0-77.0) Lymphocytes % 14.8 % (15.0-51.0) Monocytes % 7.1 % (0.0-11.0) Eosinophils % 0.2 % (0.0-7.0) Basophils % 0.3 % (0.0-2.0) Nucleated Red Blood Cells % 0.0 /100WBC (0.0-0.0) Immature Granulocytes # 0.070 10^3/ul (0.0-0.031) Neutrophils # 7.7 10^3/ul (1.6-7.5) Lymphocytes # 1.5 10^3/ul (0.8-2.9) Monocytes # 0.7 10^3/ul (0.3-0.9) Eosinophils # 0.0 10^3/ul (0.0-0.5) Basophils # 0.0 10^3/ul (0.0-0.1) Nucleated Red Blood Cells # 0.0 10^3/ul (0.0-0.0) Erythrocyte Sedimentation Rate 17 mm/Hr (0-15) Prothrombin Time 16.1 Sec (11.9-14.9) Prothrombin Time Ratio 1.3 INR International Normalized Ratio 1.28 C-Reactive Protein 1.9 mg/dl (0.0-0.9) RON PIERCE NP Sep 28, 2018 11:33
--- NOTE | 2018-09-28 11:50 | PN ---
Date/Time of Note Date/Time of Note DATE: 09/28/18 TIME: 11:42 Assessment/Plan VTE Prophylaxis Risk score (from Ns)>0 risk: 1 SCD applied (from Ns): Yes SCD contraindicated: low risk/ambulating Pharmacological prophylaxis: NA/contraindicated Pharm contraindication: low risk/ambulating Lines/Catheters [facility] Saline Lock Urinary Cath still in place: No Assessment/Plan Hospital Course Assessment: Ulcerative colitis - as noted on pathology as well as physical finding on colonoscopy Severe iron deficiency anemia/Diarrhea -Ct- abd/pelvis - pancolitis, Rounded 3.8 cm mass-like structure with mild enhancement in the lumen of the mid sigmoid colon concerning for colonic mass/polyp -Elevated ESR/CRP- query underlying IBD? Status post EGD 09/23/18: -Acute gastritis -Esophagitis Grade C -Mild gastropathy, biopsies taken for H Pylori Colonoscopy 09/23/18: -Findings consistent with ulcerative colitis -4 cm malignant appearing mass 35 cm from the anal verge Weakness secondary to above Thrombocytosis likely reactive Elevated lipase- stable though remains elevated despite abdominal pain Excessive weight loss- 80+ lbs in 7 months Hepatosplenomegaly. Plan: Continue mesalamine 800 mg p.o. 3 times daily - untile evaluated by GI in clinic- recommend biologic therapy Rx for Prednisone 30 mg po BID- prior to d/c with taper Continue regular diet F/u with GI as an out-pt Patient seen in collaboration with Dr. Dial Subjective: Patient is doing well, tolerating regular diet. No over night events. Overall patient feels he is improving Exam PHYSICAL EXAMINATION: GENERAL: Pale, alert & oriented x 3, in no acute distress SKIN: No lesions CHEST: Inspection within normal limits. CARDIOVASCULAR: Heart: Regular rate and rhythm, RESPIRATORY: Lungs clear to auscultation GASTROINTESTINAL AND LIVER: Abdomen: Soft, non tender, non-distended, no hernias, no guarding, no rebound tenderness, normoactive bowel sounds. Rectal: Deferred EXTREMITIES: No cyanosis, clubbing or edema. Result Diagram: 09/28/18 0510 09/26/18 0638 Results 24hrs Laboratory Tests Test 09/28/18 05:10 White Blood Count 10.1 # Red Blood Count 4.79 Hemoglobin 8.9 L Hematocrit 32.4 L Mean Corpuscular Volume 67.6 L Mean Corpuscular Hemoglobin 18.6 L Mean Corpuscular Hemoglobin Concent 27.5 L Red Cell Distribution Width Platelet Count 519 H Mean Platelet Volume 8.7 Immature Granulocytes % 0.700 H Neutrophils % 76.9 Lymphocytes % 14.8 L Monocytes % 7.1 Eosinophils % 0.2 Basophils % 0.3 Nucleated Red Blood Cells % 0.0 Immature Granulocytes # 0.070 H Neutrophils # 7.7 H Lymphocytes # 1.5 Monocytes # 0.7 Eosinophils # 0.0 Basophils # 0.0 Nucleated Red Blood Cells # 0.0 Erythrocyte Sedimentation Rate 17 H Prothrombin Time 16.1 H Prothrombin Time Ratio 1.3 INR International Normalized Ratio 1.28 C-Reactive Protein 1.9 H Exam/Review of Systems Exam Vitals Vital Signs Date Temp Pulse Resp B/P (MAP) Pulse Ox O2 O2 Flow FiO2 Time Delivery Rate 09/28/18 98.6 63 16 122/73 100 07:47 (89) 09/24/18 Room Air 14:09 Intake and Output 09/27/18 09/27/18 09/28/18 1515:00 23:00 07:00 IntakeIntake Total 680 ml 240 ml BalanceBalance 680 ml 240 ml Results Results 24hrs Laboratory Tests Test 09/28/18 05:10 White Blood Count 10.1 # Red Blood Count 4.79 Hemoglobin 8.9 L Hematocrit 32.4 L Mean Corpuscular Volume 67.6 L Mean Corpuscular Hemoglobin 18.6 L Mean Corpuscular Hemoglobin Concent 27.5 L Red Cell Distribution Width Platelet Count 519 H Mean Platelet Volume 8.7 Immature Granulocytes % 0.700 H Neutrophils % 76.9 Lymphocytes % 14.8 L Monocytes % 7.1 Eosinophils % 0.2 Basophils % 0.3 Nucleated Red Blood Cells % 0.0 Immature Granulocytes # 0.070 H Neutrophils # 7.7 H Lymphocytes # 1.5 Monocytes # 0.7 Eosinophils # 0.0 Basophils # 0.0 Nucleated Red Blood Cells # 0.0 Erythrocyte Sedimentation Rate 17 H Prothrombin Time 16.1 H Prothrombin Time Ratio 1.3 INR International Normalized Ratio 1.28 C-Reactive Protein 1.9 H Medications Medication Current Medications IV Flush (NS 3 ml) 3 ml PER PROTOCOL IV ; Start 09/21/18 at 14:00 Ondansetron HCl (Zofran Inj) 4 mg Q6H PRN IV NAUSEA/VOMITING; Start 09/21/18 at 14:00 Acetaminophen (Tylenol Tab) 650 mg Q6H PRN PO .PAIN 1-3 OR TEMP; Start 09/21/18 at 14:00 Pantoprazole (Protonix Iv) 40 mg BID@06,18 IV Last administered on 09/28/18 06:20; Admin Dose 40 MG; Start 09/21/18 at 18:00 Ferrous Sulfate (Ferrous Sulfate (Ec)) 325 mg BID PO Last administered on 09/28/18 09:16; Admin Dose 325 MG; Start 09/26/18 at 21:00 Mesalamine (Delzicol Dr) 800 mg TID PO Last administered on 09/28/18 09:16; Admin Dose 800 MG; Start 09/26/18 at 21:00 Methylprednisolone Sodium Succinate (Solu-Medrol) 20 mg Q8 IV Last administered on 09/28/18 06:20; Admin Dose 20 MG; Start 09/26/18 at 22:00 PAL HOOPER Sep 28, 2018 11:50
== END 2018-09-28 15:14 | disposition home or self-care (01) | DRG 387 ==
LOC: FTE 09:05 → TEL 12:54 → PP2 09-23 21:49
PROVIDERS: ADMIT Hospitalist; ATTEND Hospitalist
PROC: 30233N1 Transfusion of Nonautologous Red Blood Cells into Peripheral Vein, Percutaneous Approach (ICD-10-PCS; 2018-09-21)
PROC: 0DBN8ZX Excision of Sigmoid Colon, Via Natural or Artificial Opening Endoscopic, Diagnostic (ICD-10-PCS; 2018-09-23)
PROC: 0DBF8ZX Excision of Right Large Intestine, Via Natural or Artificial Opening Endoscopic, Diagnostic (ICD-10-PCS; 2018-09-23)
PROC: 0DB58ZX Excision of Esophagus, Via Natural or Artificial Opening Endoscopic, Diagnostic (ICD-10-PCS; 2018-09-23)
PROC: 0DB68ZX Excision of Stomach, Via Natural or Artificial Opening Endoscopic, Diagnostic (ICD-10-PCS; 2018-09-23)
PROC: 0DBG8ZX Excision of Left Large Intestine, Via Natural or Artificial Opening Endoscopic, Diagnostic (ICD-10-PCS; principal; 2018-09-23 11:30)
PROC: 0DBL8ZX Excision of Transverse Colon, Via Natural or Artificial Opening Endoscopic, Diagnostic (ICD-10-PCS; 2018-09-23 11:30)
DX: K51.00 Ulcerative (chronic) pancolitis without complications (principal); D50.0 Iron deficiency anemia secondary to blood loss (chronic); D12.5 Benign neoplasm of sigmoid colon; D50.9 Iron deficiency anemia, unspecified; K21.9 Gastro-esophageal reflux disease without esophagitis; D47.3 Essential (hemorrhagic) thrombocythemia; K20.9 Esophagitis, unspecified; K29.00 Acute gastritis without bleeding; R16.2 Hepatomegaly with splenomegaly, not elsewhere classified; R74.8 Abnormal levels of other serum enzymes; R63.4 Abnormal weight loss; Z68.33 Body mass index [BMI] 33.0-33.9, adult; K31.9 Disease of stomach and duodenum, unspecified
CPT/HCPCS: 36415; 36430; 74178; 80048; 80053; 80061; 81001; 81003; 82150; 82270; 82378; 83036; 83540; 83690; 83735; 85014; 85018; 85025; 85610; 85651; 86140; 86644; 86850; 86900; 86901; 86920; 87045; 87075; 88305; 88312; 93005; 96361; 96374; 96376; C9113; J0744; J2916; J2920; J3010; J7030; P9016; Q9967

== ENCOUNTER 2018-10-02 22:03 | Emergency (ER) | payer OTHER ==
[~2018-10-02] VITALS: Ht 170.2 cm; Wt 96.5 kg
[~2018-10-02 22:03] MED LIST changes: -ACET500C5 PO; -ONDA8TAB14 PO
[2018-10-02 22:06] VITALS: Ht 170.2 cm; Wt 96.5 kg
[2018-10-02] MEDS ORDERED: morphine 4 MG/ML VIAL IV STA (22:49)
[2018-10-02] MEDS ORDERED: ONDANSETRON 4 MG INJ IV STA (22:49)
[2018-10-02] MEDS ORDERED: SOD CHLORIDE 0.9% 1,000 ML IV STA (22:49)
[2018-10-02] MEDS ORDERED: ACETAMINOPHEN 500 MG TAB PO STA (22:59)
[2018-10-03] MEDS ORDERED: HYDROmorphONE 0.5 MG/0.5 ML SYG IV STA (00:37)
[2018-10-03] MEDS ORDERED: KETOROLAC 15 MG INJ IV STA (02:42)
[2018-10-03] MEDS ORDERED: DIAZEPAM 5 MG/ML SYG IV ONE (03:00)
[2018-10-03 04:20] VITALS: BP 113/63; PULSE 95; RESP 16
--- NOTE | 2018-10-06 05:13 | ERD ---
ER Documentation Chief Complaint Chief Complaint BACK PAIN X3DAYS HPI This is a 33-year-old male presenting to the emergency department complaining of nontraumatic back pain for 3 days. It is in the right mid back. He is also had fevers. He states it began after leaving the hospital. He has had 10/10 pain. He has had no cough. No other symptoms reported at this time. ROS All systems reviewed and are negative except as per history of present illness. Medications Home Meds Active Scripts Ibuprofen* (Motrin*) 600 Mg Tab, 600 MG PO Q6, #30 TAB Prov:BLANQUITA SHANNON PA-C 10/03/18 Cyclobenzaprine Hcl* (Cyclobenzaprine Hcl*) 10 Mg Tablet, 10 MG PO TID, #15 TAB Prov:BLANQUITA SHANNON PA-C 10/03/18 Doxycycline Hyclate* (Doxycycline Hyclate*) 100 Mg Tablet.dr, 100 MG PO BID for 10 Days, TAB Prov:BLANQUITA SHANNON PA-C 10/03/18 Budesonide EC* (Budesonide EC*) 3 Mg Capdr...er, 9 MG PO DAILY for 42 Days, TAB Prov:RON PIERCE [employer] 09/28/18 [Work Note] No Conflict Check Please excuse Jori Garcia attending work karen 09/21/2018 to 10/02/2018 due to his medical condition. Prov:PIERCE,RON [employer] 09/28/18 Pantoprazole* (Protonix*) 40 Mg Tablet.dr, 40 MG PO BID, #60 TAB Prov:PIERCERON [employer] DEAN 09/28/18 Mesalamine (Delzicol) 400 Mg Cap.drtab., 800 MG PO TID, #100 TAB Prov:PIERCERON [employer]AN 09/28/18 Ferrous Sulfate* (Ferrous Sulfate*) 325 Mg Tabec, 325 MG PO BID, #100 TAB Prov:PIERCEFELIA [employer]AN 09/28/18 Allergies Allergies: Coded Allergies: No Known Allergy (Unverified , 09/21/18) PMhx/Soc Medical and Surgical Hx: pt denies Medical Hx, pt denies Surgical Hx History of Surgery: No Anesthesia Reaction: No Hx Neurological Disorder: No Hx Respiratory Disorders: No Hx Cardiac Disorders: No Hx Psychiatric Problems: No Hx Miscellaneous Medical Probl: No Hx Alcohol Use: No Hx Substance Use: No Hx Tobacco Use: No FmHx Family History: No diabetes Physical Exam Vitals Vital Signs Date Temp Pulse Resp B/P (MAP) Pulse Ox O2 O2 Flow FiO2 Time Delivery Rate 10/03/18 99.1 95 16 113/63 98 Room Air 04:20 (80) 10/03/18 111 120/67 98 Room Air 00:51 (84) 10/02/18 100.4 109 19 124/75 99 22:06 (91) Physical Exam Const: No acute distress Head: Atraumatic Eyes: Normal Conjunctiva ENT: Normal External Ears, Nose and Mouth. Neck: Full range of motion. No meningismus. Resp: Clear to auscultation bilaterally Cardio: Regular rate and rhythm, no murmurs Abd: Soft, non tender, non distended. Normal bowel sounds Skin: No petechiae or rashes Back: No midline or flank tenderness mild tenderness palpation of the mid back bilaterally. No midline tenderness. No step-offs. Pain is worse with movement. Ext: No cyanosis, or edema Neur: Awake and alert Psych: Normal Mood and Affect Result Diagram: 10/02/18 2319 10/02/18 2319 Results 24 hrs Laboratory Tests Test 10/02/18 23:19 White Blood Count 13.2 10^3/ul Red Blood Count 5.06 10^6/ul Hemoglobin 9.5 g/dl Hematocrit 34.4 % Mean Corpuscular Volume 68.0 fl Mean Corpuscular Hemoglobin 18.8 pg Mean Corpuscular Hemoglobin Concent 27.6 g/dl Red Cell Distribution Width % Platelet Count 639 10^3/UL Mean Platelet Volume 8.4 fl Immature Granulocytes % 0.400 % Neutrophils % 69.7 % Lymphocytes % 11.6 % Monocytes % 13.2 % Eosinophils % 4.6 % Basophils % 0.5 % Nucleated Red Blood Cells % 0.0 /100WBC Immature Granulocytes # 0.050 10^3/ul Neutrophils # 9.2 10^3/ul Lymphocytes # 1.5 10^3/ul Monocytes # 1.8 10^3/ul Eosinophils # 0.6 10^3/ul Basophils # 0.1 10^3/ul Nucleated Red Blood Cells # 0.0 10^3/ul Prothrombin Time 15.2 Sec Prothrombin Time Ratio 1.2 INR International Normalized Ratio 1.19 Activated Partial Thromboplast Time 38.8 Sec Urine Color YELLOW Urine Clarity CLEAR Urine pH 5.0 Urine Specific Carmine 1.025 Urine Ketones NEGATIVE mg/dL Urine Nitrite NEGATIVE mg/dL Urine Bilirubin NEGATIVE mg/dL Urine Urobilinogen NEGATIVE mg/dL Urine Leukocyte Esterase NEGATIVE Nancy/ul Urine Microscopic RBC 1 /HPF Urine Microscopic WBC 2 /HPF Urine Mucus MODERATE /HPF Urine Hemoglobin NEGATIVE mg/dL Urine Glucose NEGATIVE mg/dL Urine Total Protein 1+ mg/dl Sodium Level 136 mmol/L Potassium Level 4.6 mmol/L Chloride Level 103 mmol/L Carbon Dioxide Level 28 mmol/L Anion Gap 5 Blood Urea Nitrogen 13 mg/dl Creatinine 0.72 mg/dl Est Glomerular Filtrat Rate mL/min > 60 mL/min Glucose Level 112 mg/dl Calcium Level 8.4 mg/dl Total Bilirubin 0.6 mg/dl Direct Bilirubin 0.00 mg/dl Indirect Bilirubin 0.6 mg/dl Aspartate Amino Transf (AST/SGOT) 34 IU/L Alanine Aminotransferase (ALT/SGPT) 21 IU/L Alkaline Phosphatase 54 IU/L Total Protein 6.8 g/dl Albumin 3.2 g/dl Globulin 3.60 g/dl Albumin/Globulin Ratio 0.88 Lipase 652 U/L Current Medications Medications Dose Sig/Clara Start Time Status Last (Trade) Ordered Route PRN Stop Time Admin Dose Reason Admin Sodium 1,000 ml @ Q1H STAT 10/02/18 DC 10/02/18 Chloride 1,000 mls/hr IV 22:49 23:44 10/02/18 23:48 Morphine 4 mg ONCE STAT 10/02/18 DC 10/02/18 Sulfate IV 22:49 23:44 (morphine) 10/02/18 22:52 Ondansetron 4 mg ONCE STAT 10/02/18 DC 10/02/18 HCl (Zofran IV 22:49 23:43 Inj) 10/02/18 22:52 1,000 mg ONCE STAT 10/02/18 DC 10/03/18 Acetaminophen PO 22:59 03:01 (Tylenol 10/02/18 23:01 Tab) 1 mg ONCE STAT 10/03/18 DC 10/03/18 Hydromorphone IV 00:37 00:53 HCl 10/03/18 00:38 (Dilaudid) Diazepam 5 mg ONCE ONCE 10/03/18 DC 10/03/18 (Valium) IV 03:00 02:51 10/03/18 03:01 Ketorolac 15 mg ONCE STAT 10/03/18 DC 10/03/18 Tromethamine IV 02:42 02:51 (Toradol) 10/03/18 02:43 [place] [id number] Radiology Main Line: [phone] DIAGNOSTIC IMAGING REPORT Patient: JORI CHEN : 1985 Age: 33 Sex: M MR #: [id number] DOS: 10/02/18 2259 Ordering MD: KEVIN OLSEN MD [facility] Room/Bed: PROCEDURE: CT Chest, Abdomen and Pelvis without contrast. CLINICAL INDICATION: Pain after EGD TECHNIQUE: Helically acquired axial CT images of the chest, abdomen and pelvis were obtained without contrast. Sagittal and coronal reformatted images were generated from the axial data set. Images were reviewed on a high-resolution PAC S workstation. Exam CTDI mGy Exam DLP mGy-cm DICOM images are available. One or more of the following dose reduction techniques were utilized: 1.) Automated exposure control 2.) Adjustment of the mA +/- kV according to patient's size 3.) Use of iterative reconstruction technique. COMPARISON: None FINDINGS: CT chest: Mediastinum: The great vessels are normal in caliber. There is no abnormal pericardial collection. Esophagus as visualized is unremarkable. There is no evidence of pneumomediastinum. Lungs: There is mild subsegmental airspace consolidation at the medial base of the right lung. No pleural effusions or pneumothorax. Central airways are patent. CT abdomen and pelvis: Liver and gallbladder: The liver is mildly enlarged, otherwise unremarkable. The gallbladder is unremarkable. Spleen: Normal. Pancreas: Normal. Adrenal glands: Normal. Kidneys: Kidneys are symmetric in size and morphology. No hydronephrosis or renal calculus. Bilateral ureters are unremarkable. Vasculature: Abdominal aorta is normal in caliber. Lymph nodes: Multiple sub centimeter lymph nodes noted in the central mesentery and pelvis, nonspecific. Bowel and mesentery: Stomach and small bowel are unremarkable. Small fat containing umbilical hernia. Normal appendix. Large bowel is unremarkable. No inflammatory changes in the mesentery and no evidence of pneumoperitoneum. Pelvis: The urinary bladder is unremarkable. There is no free fluid in the pelvis. Musculoskeletal: Minor degenerative marginal spurring throughout the mid thoracic spine, regional bones otherwise intact. IMPRESSION: 1. No acute process to correlate with reported pain. 2. Subsegmental airspace consolidation in the right lung base, favored to represent atelectasis, less likely aspiration or pneumonia. 3. Mild hepatomegaly. 4. Multiple mildly prominent lymph nodes in the central mesentery and pelvis, similar compared with previous imaging, nonspecific and possibly reactive. 5. Small fat containing umbilical hernia. RPTAT: HJBB Physician Claudio Date Time Electronically viewed and signed by Physician Claudio on 10/03/2018 02:26 xB/ CC: KEVIN OLSEN MD [id number] Procedures/MDM This is a 33-year-old male presenting to the emergency department complaining of back pain and fevers intermittently ever since leaving the hospital. Laboratory studies were ordered. White blood cell count was 13.2. Hemoglobin is 9.5. Chemistry panel showed no significant acute abnormalities. Lipase was slightly elevated at 652. Urinalysis showed no evidence of urinary tract infection. Abdomen and pelvis CT and chest CT revealed subsegmental airspace consolidation in the right lung base favored to represent atelectasis, less likely aspiration or pneumonia. Reports were interpreted by the radiologist. Patient was administered Tylenol, Toradol, Dilaudid, Valium, morphine, Zofran all which significantly improved his symptoms. On reevaluation he was improved. This patient was examined by attending ED physician, Dr. Reji Olsen who is an improvement with the diagnosis, plan, ED course. He recommended sending the patient home with prescriptions for ibuprofen and Flexeril and doxycycline for pneumonia and muscle spasms. Patient advised to return to the department immediately for any new, worsening symptoms. He was in agreement with the diagnosis, plan, need for follow-up, return precautions. No evidence to suggest sepsis, meningitis, acute surgical abdomen, cauda equina, or other emergent process. Patient agreed with the diagnosis, plan, need for follow-up, and return precautions. Departure Diagnosis: Primary Impression: Back pain Additional Impression: Pneumonia Condition: Fair Patient Instructions: Back Pain (Acute Or Chronic) [facility] Usted se suh hecho un examen mdico de control que le indica que no est en angelica condicin que requiera tratamiento urgente en el Departamento de Emergencia. Un estudio ms profundo y el tratamiento de mad[place] condicin pueden esperar sin ningn riesgo hasta que usted sea atendida/o en el consultorio de [place] mdico o angelica clnica. Es responsabilidad suya arreglar angelica floyd para el seguimiento del kyrie. MANEJO DE CONDICIONES NO URGENTES EN EL FUTURO 1) Si usted tiene un mdico de atencin primaria: Usted debera llamar a [place] mdico de atencin primaria antes de venir al departamento de emergencia. Despus de las horas de consultorio, [place] doctor o [place]rid asociado/a est disponible por telfono. El mdico o enfermero de darius en el servicio telefnico puede asesorarle por pavel medio para atender el problema, o kyrie contrario se puede programar angelica floyd. 2) Si usted no tiene un mdico de atencin primaria: Llame al mdico o clnica de referencia que aparece abajo nawaf las horas de consultorio para hacer angelica floyd para que le vean. CLINICAS: [facility] [phone] [facility] [phone] [facility] [phone] [facility] [phone] [facility]. [facility] [phone] [facility] [phone] [address] Additional Instructions: Llame al doctor MAANA y lars angelica FLOYD PARA DENTRO DE 1-2 MEJIA.Dgale a la secretaria que nosotros le instruimos hacer esta floyd.Avise o llame si madrid condicin se empeora antes de la floyd. Regresa aqui si peor o no mejor. BLANQUITA SHANNON PA-C Oct 06, 2018 05:13
== END 2018-10-03 04:37 | disposition home or self-care (01) ==
LOC: FTE 22:03
DX: M54.6 Pain in thoracic spine (principal); J18.9 Pneumonia, unspecified organism; R07.9 Chest pain, unspecified
CPT/HCPCS: 71045; 71250; 74176; 80053; 81001; 83690; 85025; 85610; 85730; J1170; J1885; J2270; J2405; J3360; J7030; 36415; 96374; 96375

== ENCOUNTER 2018-10-09 21:47 | Inpatient (IN) | payer OTHER ==
[~2018-10-09] VITALS: Ht 170.2 cm; Wt 86.0 kg
[~2018-10-09 21:47] MED LIST changes: +DOXY-214 PO; -DOXY100T20 PO
[2018-10-09] MEDS ORDERED: ONDANSETRON 4 MG INJ IV STA (22:44)
[2018-10-09] MEDS ORDERED: SOD CHLORIDE 0.9% 1,000 ML IV STA (22:44)
[2018-10-10] MEDS ORDERED: morphine 4 MG/ML VIAL IV STA (00:22)
[2018-10-10] MEDS ORDERED: ONDANSETRON 4 MG INJ IV PRN (00:30)
[2018-10-10] MEDS ORDERED: ACETAMINOPHEN 325 MG TAB PO PRN (00:30)
[2018-10-10 02:03] VITALS: BP 109/69; PULSE 119; RESP 20
[2018-10-10 02:08] VITALS: Ht 170.2 cm; Wt 86.0 kg
[2018-10-10] MEDS: SOD CHLORIDE 0.9% 1,000 ML IV SCH ×2 (02:58→12:52)
[2018-10-10] MEDS: morphine 2 MG INJ IV PRN ×2 (02:58→09:37)
[2018-10-10] MEDS: IBUPROFEN 600 MG TAB PO SCH ×5 (02:58→23:41)
[2018-10-10] MEDS ORDERED: NACL 0.9% 3 ML SYG IV SCH (03:00)
[2018-10-10] MEDS ORDERED: METHYLPREDNISOLONE 125 MG INJ IV ONE (03:00)
[2018-10-10 08:00] VITALS: BP 111/77; PULSE 107; RESP 19
[2018-10-10] MEDS ORDERED: BUDESONIDE (EC) 3 MG CAP PO SCH (09:00)
[2018-10-10] MEDS: MESALAMINE (EC) 400 MG CAP PO SCH ×3 (09:36→21:06)
[2018-10-10] MEDS: FERROUS SULFATE (EC) 325 MG TAB PO SCH ×2 (09:36→21:06)
[2018-10-10] MEDS: PANTOPRAZOLE (EC) 40 MG TAB PO SCH ×2 (09:37→21:06)
[2018-10-10] MEDS: CYCLOBENZAPRINE 10 MG TAB PO SCH ×3 (09:37→21:06)
[2018-10-10 14:00] VITALS: BP 108/69; PULSE 110; RESP 17
[2018-10-10 20:00] VITALS: BP 117/70; PULSE 102; RESP 18
[2018-10-10] MEDS: predniSONE 10 MG TAB PO SCH (21:06)
[2018-10-11] MEDS: SOD CHLORIDE 0.9% 1,000 ML IV SCH ×4 (01:24→22:00)
[2018-10-11 01:30] VITALS: BP 112/71; PULSE 77; RESP 17
[2018-10-11] MEDS: morphine 2 MG INJ IV PRN ×5 (01:30→22:15)
[2018-10-11 02:00] VITALS: BP 110/67; PULSE 88; RESP 17
[2018-10-11] MEDS: IBUPROFEN 600 MG TAB PO SCH ×3 (05:55→17:14)
[2018-10-11] MEDS: MESALAMINE (EC) 400 MG CAP PO SCH ×3 (08:37→21:59)
[2018-10-11 08:38] VITALS: BP 110/74; PULSE 118; RESP 18
[2018-10-11] MEDS: FERROUS SULFATE (EC) 325 MG TAB PO SCH ×2 (08:38→21:59)
[2018-10-11] MEDS: predniSONE 10 MG TAB PO SCH (08:38)
[2018-10-11] MEDS: CYCLOBENZAPRINE 10 MG TAB PO SCH ×3 (08:38→21:59)
[2018-10-11] MEDS: PANTOPRAZOLE (EC) 40 MG TAB PO SCH ×2 (08:38→21:59)
[2018-10-11] MEDS: LEVOFLOXACIN 500MG/D5W (PMX) 100 ML IVPB SCH (12:01)
[2018-10-11] MEDS: metroNIDAZOLE 500 MG/NS (PMX) 100 ML IVPB SCH ×2 (13:26→22:00)
[2018-10-11] MEDS: ACETAMINOPHEN 325 MG TAB PO PRN (15:02)
[2018-10-11 20:24] VITALS: BP 100/65; PULSE 128; RESP 20
[2018-10-11 21:15] VITALS: BP 110/67; PULSE 118; PULSE 120
[2018-10-12] VITALS (7 sets, daily range): BP systolic 91–114; BP diastolic 56–62; PULSE 119–165; RESP 16–19
[2018-10-12] MEDS: IBUPROFEN 600 MG TAB PO SCH ×4 (00:36→18:34)
[2018-10-12] MEDS: morphine 2 MG INJ IV PRN ×2 (03:08→09:52)
[2018-10-12] MEDS ORDERED: SOD CHLORIDE 0.9% 500 ML IV ONE ×2 (04:00→15:00)
[2018-10-12] MEDS: SOD CHLORIDE 0.9% 1,000 ML IV SCH ×4 (04:23→22:44)
[2018-10-12] MEDS ORDERED: HYDROmorphONE 0.5 MG/0.5 ML SYG IV PRN (06:30)
[2018-10-12] MEDS: metroNIDAZOLE 500 MG/NS (PMX) 100 ML IVPB SCH ×3 (06:38→21:48)
[2018-10-12] MEDS ORDERED: predniSONE 20 MG TAB PO SCH ×3 (09:00)
[2018-10-12] MEDS: MESALAMINE (EC) 400 MG CAP PO SCH ×2 (09:46→13:07)
[2018-10-12] MEDS: CYCLOBENZAPRINE 10 MG TAB PO SCH ×3 (09:46→21:47)
[2018-10-12] MEDS: PANTOPRAZOLE (EC) 40 MG TAB PO SCH ×2 (09:46→21:47)
[2018-10-12] MEDS: FERROUS SULFATE (EC) 325 MG TAB PO SCH ×2 (09:46→21:47)
[2018-10-12] MEDS: LEVOFLOXACIN 500MG/D5W (PMX) 100 ML IVPB SCH (13:06)
[2018-10-12] MEDS: HYDROmorphONE 1 MG/ML SYG IV PRN ×2 (13:07→17:28)
[2018-10-12] MEDS: ACETAMINOPHEN 325 MG TAB PO PRN (16:47)
[2018-10-12] MEDS ORDERED: SOD CHLORIDE 0.9% 100 ML ONE (16:49)
[2018-10-12] MEDS ORDERED: IOHEXOL 300MG/ML 150 ML BTL ONE (16:49)
[2018-10-12] MEDS: METHYLPREDNISOLONE 40 MG INJ IV SCH ×2 (17:08→21:47)
[2018-10-12] MEDS ORDERED: IOHEXOL 0 ML ONE (17:37)
[2018-10-12] MEDS ORDERED: IOHEXOL 100 ML ONE (17:38)
[2018-10-12] MEDS ORDERED: IOHEXOL 350MG/ML 50 ML BTL ONE (17:38)
[2018-10-12] MEDS ORDERED: HYDROmorphONE 1 MG/ML SYG IV PRN (18:00)
[2018-10-12] MEDS ORDERED: SOD CHLORIDE 0.9% 1,000 ML IV ONE (18:00)
[2018-10-12] MEDS ORDERED: BARIUM SULFATE 0.1% 450 ML BTL (VOLUMEN) PO ONE (23:00)
[2018-10-13] VITALS (16 sets, daily range): BP systolic 93–117; BP diastolic 55–83; PULSE 116–135; RESP 14–31
[2018-10-13] MEDS: IBUPROFEN 600 MG TAB PO SCH ×2 (00:44→06:00)
[2018-10-13] MEDS ORDERED: GLUCAGON 1 MG INJ IV ONE (01:30)
[2018-10-13] MEDS ORDERED: CEFAZOLIN 1 GM INJ ONE (06:00)
[2018-10-13] MEDS: metroNIDAZOLE 500 MG/NS (PMX) 100 ML IVPB SCH ×3 (06:00→22:29)
[2018-10-13] MEDS ORDERED: FENTAnyl 50 MCG/ML VIAL ONE (06:00)
[2018-10-13] MEDS ORDERED: ROCURONIUM 50 MG INJ ONE (06:00)
[2018-10-13] MEDS ORDERED: CA CHLORIDE 10% 10 ML SYRINGE ONE (06:00)
[2018-10-13] MEDS ORDERED: PROPOFOL 20 ML ONE (06:00)
[2018-10-13] MEDS ORDERED: GLYCOPYRROLATE 0.4 MG INJ ONE (06:00)
[2018-10-13] MEDS ORDERED: MIDAZOLAM 1 MG/ML 2 ML INJ ONE (06:00)
[2018-10-13] MEDS ORDERED: ALBUMIN HUMAN 5% 250 ML INJ ONE (06:00)
[2018-10-13] MEDS ORDERED: NEOSTIGMINE 3 MG/3 ML SYRINGE ONE (06:00)
[2018-10-13] MEDS ORDERED: ONDANSETRON 4 MG INJ ONE (06:01)
[2018-10-13] MEDS ORDERED: DEXAMETHASONE 4 MG/ML 5 ML INJ ONE (06:01)
[2018-10-13] MEDS ORDERED: OXYCODONE/ACETAMINOPHEN (5/325) TAB PO PRN ×2 (06:30)
[2018-10-13] MEDS ORDERED: EPHEDrine 25 MG/5 ML SYG IV PRN ×2 (06:30→09:30)
[2018-10-13] MEDS ORDERED: TRIMETHOBENZAMIDE 100 MG/ML VIAL IM PRN ×3 (06:30→09:30)
[2018-10-13] MEDS ORDERED: hydrALAzine 20 MG INJ IV PRN ×2 (06:30→09:30)
[2018-10-13] MEDS ORDERED: ALBUTEROL 0.083% (NEB) 2.5 MG/3 ML AMP HHN PRN ×2 (06:30→09:30)
[2018-10-13] MEDS ORDERED: MEPERIDINE 25 MG INJ IV PRN ×2 (06:30→09:30)
[2018-10-13] MEDS ORDERED: FENTAnyl 50 MCG/ML VIAL IV PRN ×6 (06:30→09:30)
[2018-10-13] MEDS ORDERED: MIDAZOLAM 1 MG/ML 2 ML INJ IV PRN ×2 (06:30→09:30)
[2018-10-13] MEDS ORDERED: LABETALOL HCL 20MG INJ IV PRN ×2 (06:30→09:30)
[2018-10-13] MEDS ORDERED: ONDANSETRON 4 MG INJ IV PRN (06:30)
[2018-10-13] MEDS ORDERED: HYDROmorphONE 1 MG/5 ML IV SYRINGE IV PRN ×6 (06:30→09:30)
[2018-10-13] MEDS ORDERED: DIPHENHYDRAMINE 50 MG INJ IV PRN ×2 (06:30→09:30)
[2018-10-13] MEDS ORDERED: IPRATROPIUM (NEB) 0.5 MG/2.5 ML AMP HHN PRN ×2 (06:30→09:30)
[2018-10-13] MEDS: SOD CHLORIDE 0.9% 1,000 ML IV SCH ×2 (06:44→14:04)
[2018-10-13] MEDS: PIPER-TAZO 3.375 GM IV (PMX) 100 ML IVPB SCH ×3 (07:30→16:36)
[2018-10-13] MEDS ORDERED: ROPIVACAINE 0.5 % 30 ML VIAL ONE (09:17)
[2018-10-13] MEDS ORDERED: NALOXONE (0.4 MG/ML) INJ IV PRN ×2 (09:30)
[2018-10-13] MEDS ORDERED: HYDROmorphONE 0.2 MG/ML PCA IV SCH ×2 (09:30→10:30)
[2018-10-13] MEDS ORDERED: METOCLOPRAMIDE 10 MG INJ IV PRN (09:30)
[2018-10-13] MEDS ORDERED: SUGAMMADEX SODIUM 200 MG/2 ML VIAL IV ONE (09:33)
[2018-10-13] MEDS ORDERED: HYDROmorphONE 0.2 MG/ML PCA ONE (10:00)
[2018-10-13] MEDS: PANTOPRAZOLE (EC) 40 MG TAB PO SCH ×2 (10:49→20:37)
[2018-10-13] MEDS: HYDROmorphONE 0.2 MG/ML PCA IV SCH ×2 (11:01→17:19)
[2018-10-13] MEDS: METHYLPREDNISOLONE 40 MG INJ IV SCH ×3 (11:23→22:28)
[2018-10-13] MEDS ORDERED: ACETAMINOPHEN 1000MG/100ML IV 100 ML IVPB ONE (16:30)
[2018-10-14] VITALS (24 sets, daily range): BP systolic 83–112; BP diastolic 60–83; PULSE 111–138; RESP 12–34
[2018-10-14] MEDS: PIPER-TAZO 3.375 GM IV (PMX) 100 ML IVPB SCH ×4 (00:29→18:19)
[2018-10-14] MEDS: SOD CHLORIDE 0.9% 1,000 ML IV SCH ×4 (00:30→20:57)
[2018-10-14] MEDS: metroNIDAZOLE 500 MG/NS (PMX) 100 ML IVPB SCH ×3 (06:11→20:53)
[2018-10-14] MEDS: PANTOPRAZOLE (EC) 40 MG TAB PO SCH (09:00)
[2018-10-14] MEDS: METHYLPREDNISOLONE 40 MG INJ IV SCH ×2 (09:48→20:53)
[2018-10-14] MEDS: PANTOPRAZOLE 40 MG INJ IV SCH ×2 (11:00→18:19)
[2018-10-14] MEDS: HYDROmorphONE 0.2 MG/ML PCA IV SCH (15:04)
[2018-10-15] VITALS (15 sets, daily range): BP systolic 111–121; BP diastolic 67–85; PULSE 67–123; RESP 19–30
[2018-10-15] MEDS: PIPER-TAZO 3.375 GM IV (PMX) 100 ML IVPB SCH ×4 (00:18→17:59)
[2018-10-15] MEDS: metroNIDAZOLE 500 MG/NS (PMX) 100 ML IVPB SCH ×3 (06:48→22:11)
[2018-10-15] MEDS: SOD CHLORIDE 0.9% 1,000 ML IV SCH (06:49)
[2018-10-15] MEDS: PANTOPRAZOLE 40 MG INJ IV SCH ×2 (06:49→18:00)
[2018-10-15] MEDS: METHYLPREDNISOLONE 40 MG INJ IV SCH ×2 (09:21→19:53)
[2018-10-15] MEDS ORDERED: BACLOFEN 10 MG TAB PO ONE (10:00)
[2018-10-15] MEDS: HYDROmorphONE 1 MG/ML SYG IV PRN ×3 (10:17→17:59)
[2018-10-16] VITALS: BP 115/74; PULSE 100; RESP 20
[2018-10-16] MEDS: PIPER-TAZO 3.375 GM IV (PMX) 100 ML IVPB SCH ×5 (00:08→18:07)
[2018-10-16] MEDS: HYDROmorphONE 1 MG/ML SYG IV PRN ×5 (00:08→20:22)
[2018-10-16 04:00] VITALS: BP 113/71; PULSE 92; RESP 20
[2018-10-16] MEDS: PANTOPRAZOLE 40 MG INJ IV SCH ×2 (05:34→17:34)
[2018-10-16] MEDS ORDERED: HYDROmorphONE 0.5 MG/0.5 ML SYG IV PRN ×2 (06:00)
[2018-10-16] MEDS: metroNIDAZOLE 500 MG/NS (PMX) 100 ML IVPB SCH ×3 (06:14→21:57)
[2018-10-16] MEDS ORDERED: SOD CHLORIDE 0.9% 250 ML IV* ONE (06:27)
[2018-10-16 07:35] VITALS: BP 119/75; PULSE 96; RESP 20
[2018-10-16] MEDS: METHYLPREDNISOLONE 40 MG INJ IV SCH ×2 (08:32→20:21)
[2018-10-16 11:45] VITALS: BP 120/78; PULSE 101; RESP 18
[2018-10-16 14:57] VITALS: BP 113/71; RESP 18
[2018-10-16 20:00] VITALS: BP 110/73; PULSE 94; RESP 20
[2018-10-17] VITALS (8 sets, daily range): BP systolic 104–119; BP diastolic 65–76; PULSE 99–131; RESP 18–20
[2018-10-17] MEDS: HYDROmorphONE 1 MG/ML SYG IV PRN ×6 (00:13→22:59)
[2018-10-17] MEDS: PIPER-TAZO 3.375 GM IV (PMX) 100 ML IVPB SCH ×6 (00:14→23:24)
[2018-10-17] MEDS: PANTOPRAZOLE 40 MG INJ IV SCH ×2 (05:49→17:07)
[2018-10-17] MEDS: metroNIDAZOLE 500 MG/NS (PMX) 100 ML IVPB SCH (06:33)
[2018-10-17] MEDS: METHYLPREDNISOLONE 40 MG INJ IV SCH (09:45)
[2018-10-17] MEDS: CHLORPROMAZINE 25 MG TAB PO SCH ×3 (11:29→20:45)
[2018-10-17] MEDS: predniSONE 20 MG TAB PO SCH (20:45)
[2018-10-17] MEDS: ENOXAPARIN 40 MG/0.4 ML SYG SC SCH (20:58)
[2018-10-17] MEDS ORDERED: SOD CHLORIDE 0.9% 1,000 ML IV ONE (21:30)
[2018-10-17] MEDS ORDERED: SOD CHLORIDE 0.9% 1,000 ML IV SCH (23:30)
[2018-10-18 03:51] VITALS: BP 98/56; PULSE 126; PULSE 54; RESP 19
[2018-10-18] MEDS: HYDROmorphONE 1 MG/ML SYG IV PRN ×3 (04:02→21:57)
[2018-10-18] MEDS ORDERED: SOD CHLORIDE 0.9% 1,000 ML IV ONE (05:00)
[2018-10-18] MEDS: PIPER-TAZO 3.375 GM IV (PMX) 100 ML IVPB SCH ×3 (05:08→17:53)
[2018-10-18] MEDS: PANTOPRAZOLE 40 MG INJ IV SCH ×2 (05:09→17:53)
[2018-10-18 06:15] VITALS: BP 99/58; PULSE 128
[2018-10-18 07:42] VITALS: BP 98/64; PULSE 120; RESP 18
[2018-10-18] MEDS: predniSONE 20 MG TAB PO SCH (08:16)
[2018-10-18] MEDS: CHLORPROMAZINE 25 MG TAB PO SCH ×3 (08:16→20:53)
[2018-10-18] MEDS: ENOXAPARIN 40 MG/0.4 ML SYG SC SCH (08:24)
[2018-10-18] MEDS ORDERED: IOHEXOL 14.3 MG(I)/ML (ADULT) BTL PO ONE (08:30)
[2018-10-18] MEDS ORDERED: MAGNESIUM SULFATE 1 GM/D5W 100 ML IVPB ONE (10:00)
[2018-10-18 11:11] VITALS: BP 109/71; PULSE 110; RESP 18
[2018-10-18] MEDS: SOD CHLORIDE 0.9% 1,000 ML IV SCH ×2 (11:14→20:52)
[2018-10-18] MEDS ORDERED: SOD CHLORIDE 0.9% 100 ML ONE (13:22)
[2018-10-18] MEDS ORDERED: IOHEXOL 100 ML ONE (13:22)
[2018-10-18] MEDS ORDERED: IOHEXOL 350MG/ML 50 ML BTL ONE (13:23)
[2018-10-18 15:00] VITALS: BP 105/74; PULSE 107; RESP 18
[2018-10-18] MEDS: SOD FERRIC GLUC COMPLX 125 MG in SOD CHLORIDE 0.9% 100 ML IVPB SCH (15:34)
[2018-10-18 19:55] VITALS: BP 123/70; PULSE 114; RESP 18
[2018-10-19] VITALS (16 sets, daily range): BP systolic 84–145; BP diastolic 62–87; PULSE 92–141; RESP 12–20
[2018-10-19] MEDS: PIPER-TAZO 3.375 GM IV (PMX) 100 ML IVPB SCH ×4 (05:21→17:26)
[2018-10-19] MEDS: PANTOPRAZOLE 40 MG INJ IV SCH ×2 (05:21→17:26)
[2018-10-19] MEDS: SOD CHLORIDE 0.9% 1,000 ML IV SCH ×2 (05:28→16:00)
[2018-10-19] MEDS: CHLORPROMAZINE 25 MG TAB PO SCH ×2 (08:20→14:07)
[2018-10-19] MEDS: predniSONE 5 MG TAB PO SCH (09:00)
[2018-10-19] MEDS ORDERED: predniSONE 20 MG TAB PO SCH (09:00)
[2018-10-19] MEDS: ENOXAPARIN 40 MG/0.4 ML SYG SC SCH (09:17)
[2018-10-19] MEDS: HYDROmorphONE 1 MG/ML SYG IV PRN ×2 (12:05→16:52)
[2018-10-19] MEDS: SOD FERRIC GLUC COMPLX 125 MG in SOD CHLORIDE 0.9% 100 ML IVPB SCH (14:07)
[2018-10-19] MEDS ORDERED: HYDROmorphONE 1 MG/ML SYG IV STA (17:38)
[2018-10-19] MEDS ORDERED: HYDROmorphONE 2 MG TAB PO PRN (19:00)
[2018-10-19] MEDS ORDERED: HYDROmorphONE 1 MG/ML SYG IV ONE (19:00)
[2018-10-20] VITALS (57 sets, daily range): BP systolic 48–117; BP diastolic 40–76; PULSE 101–142; RESP 13–26
[2018-10-20] MEDS: SOD CHLORIDE 0.9% 1,000 ML IV SCH ×4 (00:05→21:49)
[2018-10-20] MEDS: PIPER-TAZO 3.375 GM IV (PMX) 100 ML IVPB SCH ×5 (02:46→23:51)
[2018-10-20] MEDS: PANTOPRAZOLE 40 MG INJ IV SCH ×2 (06:05→17:22)
[2018-10-20] MEDS: HYDROmorphONE 1 MG/ML SYG IV PRN (09:09)
[2018-10-20] MEDS: predniSONE 5 MG TAB PO SCH (10:03)
[2018-10-20] MEDS: HYDROmorphONE 2 MG/ML SYG IV PRN ×2 (13:46→21:58)
[2018-10-20] MEDS: SOD FERRIC GLUC COMPLX 125 MG in SOD CHLORIDE 0.9% 100 ML IVPB SCH (14:04)
[2018-10-20] MEDS: MESALAMINE 1000 MG SUPP PR SCH (22:07)
[2018-10-21] VITALS (50 sets, daily range): BP systolic 80–123; BP diastolic 49–81; PULSE 85–164; RESP 12–37
[2018-10-21] MEDS: HYDROmorphONE 2 MG/ML SYG IV PRN ×4 (03:32→19:49)
[2018-10-21] MEDS: SOD CHLORIDE 0.9% 1,000 ML IV SCH ×3 (03:32→21:51)
[2018-10-21] MEDS: PIPER-TAZO 3.375 GM IV (PMX) 100 ML IVPB SCH (05:39)
[2018-10-21] MEDS: PANTOPRAZOLE 40 MG INJ IV SCH ×2 (05:39→17:10)
[2018-10-21] MEDS: MEROPENEM 1 GM/50ML(PMX) 50 ML IVPB SCH ×3 (06:57→21:51)
[2018-10-21] MEDS: predniSONE 5 MG TAB PO SCH (09:08)
[2018-10-21] MEDS: HYOSCYAMINE 0.125 MG SUBL TAB PO SCH ×2 (17:33→21:51)
[2018-10-21] MEDS: MESALAMINE 1000 MG SUPP PR SCH (21:51)
[2018-10-22] VITALS (24 sets, daily range): BP systolic 102–162; BP diastolic 46–98; PULSE 113–128; RESP 12–28
[2018-10-22] MEDS: HYDROmorphONE 2 MG/ML SYG IV PRN ×5 (00:13→22:44)
[2018-10-22] MEDS ORDERED: HYDROmorphONE 1 MG/ML SYG IV ONE (01:00)
[2018-10-22] MEDS: SOD CHLORIDE 0.9% 1,000 ML IV SCH ×4 (02:39→23:21)
[2018-10-22] MEDS: HYOSCYAMINE 0.125 MG SUBL TAB PO SCH ×3 (05:53→21:43)
[2018-10-22] MEDS: MEROPENEM 1 GM/50ML(PMX) 50 ML IVPB SCH ×3 (05:53→21:43)
[2018-10-22] MEDS: PANTOPRAZOLE 40 MG INJ IV SCH ×2 (05:53→17:07)
[2018-10-22] MEDS: predniSONE 5 MG TAB PO SCH (07:46)
[2018-10-22] MEDS ORDERED: MAGNESIUM SULFATE 1 GM/D5W 100 ML IVPB ONE (09:00)
[2018-10-22] MEDS: ONDANSETRON 4 MG INJ IV PRN (18:45)
[2018-10-22] MEDS ORDERED: MAGNESIUM SULFATE 2 GM/50 ML 50 ML IVPB ONE (21:30)
[2018-10-22] MEDS: MESALAMINE 1000 MG SUPP PR SCH (21:43)
[2018-10-23] VITALS (24 sets, daily range): BP systolic 86–118; BP diastolic 51–86; PULSE 107–157; RESP 13–28
[2018-10-23] MEDS: HYDROmorphONE 2 MG/ML SYG IV PRN ×5 (03:09→20:23)
[2018-10-23] MEDS: HYOSCYAMINE 0.125 MG SUBL TAB PO SCH ×3 (05:43→21:19)
[2018-10-23] MEDS: MEROPENEM 1 GM/50ML(PMX) 50 ML IVPB SCH ×3 (05:43→21:19)
[2018-10-23] MEDS: PANTOPRAZOLE 40 MG INJ IV SCH ×2 (05:43→18:05)
[2018-10-23] MEDS: SOD CHLORIDE 0.9% 1,000 ML IV SCH ×3 (06:20→18:05)
[2018-10-23] MEDS ORDERED: POTASSIUM PHOSPHATE 40 MEQ in SOD CHLORIDE 0.9% 250 ML IVPB ONE (08:00)
[2018-10-23] MEDS: predniSONE 5 MG TAB PO SCH (09:29)
[2018-10-23] MEDS: ONDANSETRON 4 MG INJ IV PRN ×2 (09:35→21:19)
[2018-10-23] MEDS ORDERED: IOHEXOL 14.3 MG(I)/ML (ADULT) BTL PO ONE (12:00)
[2018-10-23] MEDS ORDERED: LACTATED RINGER'S 1,000 ML IV ONE (14:00)
[2018-10-23] MEDS ORDERED: SOD CHLORIDE 0.9% 100 ML ONE (14:44)
[2018-10-23] MEDS ORDERED: IOHEXOL 300MG/ML 150 ML BTL ONE (14:44)
[2018-10-23] MEDS: MESALAMINE 1000 MG SUPP PR SCH (21:19)
[2018-10-24] VITALS (66 sets, daily range): BP systolic 60–121; BP diastolic 39–90; PULSE 94–166; RESP 14–29
[2018-10-24] MEDS: HYDROmorphONE 2 MG/ML SYG IV PRN ×6 (00:34→22:50)
[2018-10-24] MEDS: DIPHENHYDRAMINE 50 MG INJ IV PRN ×2 (00:40→17:37)
[2018-10-24] MEDS: SOD CHLORIDE 0.9% 1,000 ML IV SCH ×3 (02:18→12:57)
[2018-10-24] MEDS ORDERED: SOD CHLORIDE 0.9% 250 ML IV* ONE ×2 (03:07→06:42)
[2018-10-24] MEDS ORDERED: SOD CHLORIDE 0.9% 1,000 ML IV ONE (03:30)
[2018-10-24] MEDS ORDERED: PHENYLephrine 20MG IN 250 ML 250 ML IV SCH ×2 (03:30→07:30)
[2018-10-24] MEDS: PHENYLephrine 20MG IN 250 ML 250 ML IV SCH ×2 (04:25→06:29)
[2018-10-24] MEDS: MEROPENEM 1 GM/50ML(PMX) 50 ML IVPB SCH ×3 (05:34→22:09)
[2018-10-24] MEDS: HYOSCYAMINE 0.125 MG SUBL TAB PO SCH ×3 (05:35→22:09)
[2018-10-24] MEDS: PANTOPRAZOLE 40 MG INJ IV SCH ×2 (06:02→17:37)
[2018-10-24] MEDS ORDERED: VANCOMYCIN IV PER PHARMACY XX SCH (07:00)
[2018-10-24] MEDS ORDERED: MAGNESIUM SULFATE 2 GM/50 ML 50 ML IVPB ONE (07:30)
[2018-10-24] MEDS ORDERED: POTASSIUM CHLORIDE 100 ML IVPB ONE (08:00)
[2018-10-24] MEDS: predniSONE 5 MG TAB PO SCH (08:43)
[2018-10-24] MEDS ORDERED: VANCOMYCIN HCL 1.75 GM in SOD CHLORIDE 0.9% 500 ML IVPB SCH (09:30)
[2018-10-24] MEDS ORDERED: PHYTONADIONE 10 MG/ML INJ SC ONE (10:00)
[2018-10-24] MEDS: LACTATED RINGER'S 1,000 ML IV SCH ×2 (14:24→22:09)
[2018-10-24] MEDS: VANCOMYCIN 1 GM 250 ML IVPB SCH (20:04)
[2018-10-24] MEDS: MESALAMINE 1000 MG SUPP PR SCH (22:09)
[2018-10-25] VITALS (47 sets, daily range): BP systolic 91–141; BP diastolic 63–111; PULSE 92–136; RESP 10–29
[2018-10-25] MEDS: HYDROmorphONE 2 MG/ML SYG IV PRN ×2 (02:22→15:20)
[2018-10-25] MEDS: VANCOMYCIN 1 GM 250 ML IVPB SCH ×2 (03:30→12:04)
[2018-10-25] MEDS: MEROPENEM 1 GM/50ML(PMX) 50 ML IVPB SCH ×3 (05:04→21:25)
[2018-10-25] MEDS: HYOSCYAMINE 0.125 MG SUBL TAB PO SCH ×3 (05:04→21:25)
[2018-10-25] MEDS: LACTATED RINGER'S 1,000 ML IV SCH ×2 (05:04→08:10)
[2018-10-25] MEDS: PANTOPRAZOLE 40 MG INJ IV SCH ×2 (05:32→17:32)
[2018-10-25] MEDS ORDERED: SOD CHLORIDE 0.9% 250 ML IV* ONE (08:03)
[2018-10-25] MEDS: predniSONE 5 MG TAB PO SCH (08:10)
[2018-10-25] MEDS ORDERED: MAGNESIUM SULFATE 2 GM/50 ML 50 ML IVPB ONE (09:00)
[2018-10-25] MEDS: HYDROCODONE/APAP (5/325) TAB PO PRN ×2 (14:33→23:16)
[2018-10-25] MEDS: VANCOMYCIN 1.5 GM/NS 250 ML 250 ML IVPB SCH (19:42)
[2018-10-25] MEDS: MESALAMINE 1000 MG SUPP PR SCH (21:25)
[2018-10-26] VITALS (24 sets, daily range): BP systolic 101–123; BP diastolic 56–83; PULSE 102–135; RESP 15–29
[2018-10-26] MEDS: HYDROmorphONE 1 MG/ML SYG IV PRN ×5 (01:06→20:45)
[2018-10-26] MEDS: VANCOMYCIN 1.5 GM/NS 250 ML 250 ML IVPB SCH ×3 (04:03→20:17)
[2018-10-26] MEDS: HYOSCYAMINE 0.125 MG SUBL TAB PO SCH ×3 (05:55→22:13)
[2018-10-26] MEDS: PANTOPRAZOLE 40 MG INJ IV SCH (05:55)
[2018-10-26] MEDS: MEROPENEM 1 GM/50ML(PMX) 50 ML IVPB SCH ×3 (05:55→22:13)
[2018-10-26] MEDS: predniSONE 5 MG TAB PO SCH (08:04)
[2018-10-26] MEDS: ZINC SULFATE 220 MG CAP PO SCH (08:04)
[2018-10-26] MEDS: PANTOPRAZOLE (EC) 40 MG TAB PO SCH (18:06)
[2018-10-26] MEDS: MESALAMINE 1000 MG SUPP PR SCH (20:17)
[2018-10-27] VITALS (10 sets, daily range): BP systolic 92–121; BP diastolic 47–75; PULSE 78–134; RESP 16–24
[2018-10-27] MEDS: HYDROmorphONE 1 MG/ML SYG IV PRN ×2 (00:45→05:28)
[2018-10-27] MEDS ORDERED: SOD CHLORIDE 0.9% 500 ML IV ONE (05:00)
[2018-10-27] MEDS: HYOSCYAMINE 0.125 MG SUBL TAB PO SCH ×3 (05:12→21:13)
[2018-10-27] MEDS: MEROPENEM 1 GM/50ML(PMX) 50 ML IVPB SCH ×3 (05:28→23:28)
[2018-10-27] MEDS: PANTOPRAZOLE (EC) 40 MG TAB PO SCH ×2 (05:43→17:07)
[2018-10-27] MEDS: VANCOMYCIN 1.5 GM/NS 250 ML 250 ML IVPB SCH ×2 (08:34→21:13)
[2018-10-27] MEDS: HYDROCODONE/APAP (5/325) TAB PO PRN ×4 (09:30→21:13)
[2018-10-27] MEDS: predniSONE 5 MG TAB PO SCH (09:30)
[2018-10-27] MEDS: ZINC SULFATE 220 MG CAP PO SCH (09:30)
[2018-10-27] MEDS: MESALAMINE 1000 MG SUPP PR SCH (23:28)
[2018-10-28] MEDS: HYDROCODONE/APAP (5/325) TAB PO PRN (01:31)
[2018-10-28 03:05] VITALS: BP 105/62; PULSE 113; RESP 16
[2018-10-28] MEDS: morphine 2 MG INJ IV PRN ×3 (03:31→10:49)
[2018-10-28] MEDS: HYOSCYAMINE 0.125 MG SUBL TAB PO SCH ×3 (05:18→21:24)
[2018-10-28] MEDS: PANTOPRAZOLE (EC) 40 MG TAB PO SCH ×2 (05:18→18:29)
[2018-10-28] MEDS: MEROPENEM 1 GM/50ML(PMX) 50 ML IVPB SCH ×3 (05:18→21:24)
[2018-10-28 07:16] VITALS: BP 112/70; PULSE 106; RESP 19
[2018-10-28] MEDS: VANCOMYCIN 1.5 GM/NS 250 ML 250 ML IVPB SCH ×2 (08:50→22:16)
[2018-10-28] MEDS: ZINC SULFATE 220 MG CAP PO SCH (08:50)
[2018-10-28] MEDS: predniSONE 5 MG TAB PO SCH (08:50)
[2018-10-28] MEDS: LOPERAMIDE 2 MG CAP PO PRN ×2 (13:02→21:24)
[2018-10-28] MEDS ORDERED: LACTATED RINGER'S 1,000 ML IV ONE (15:00)
[2018-10-28 15:15] VITALS: BP 103/66; PULSE 124; RESP 19
[2018-10-28] MEDS: HYDROmorphONE 1 MG/ML SYG IV PRN ×2 (15:33→21:25)
[2018-10-28 19:35] VITALS: BP 107/67; PULSE 110; RESP 20
[2018-10-28] MEDS: MESALAMINE 1000 MG SUPP PR SCH (21:24)
[2018-10-29] VITALS: BP 101/65; PULSE 95; RESP 20
[2018-10-29] MEDS: HYDROmorphONE 1 MG/ML SYG IV PRN ×5 (02:14→20:34)
[2018-10-29 02:25] VITALS: BP 110/70; PULSE 104; RESP 19
[2018-10-29] MEDS: PANTOPRAZOLE (EC) 40 MG TAB PO SCH ×2 (05:37→17:49)
[2018-10-29] MEDS: MEROPENEM 1 GM/50ML(PMX) 50 ML IVPB SCH ×3 (05:37→22:42)
[2018-10-29] MEDS: HYOSCYAMINE 0.125 MG SUBL TAB PO SCH ×3 (05:37→22:42)
[2018-10-29 07:20] VITALS: BP 105/67; PULSE 120; RESP 18
[2018-10-29] MEDS: VANCOMYCIN HCL 1.75 GM in SOD CHLORIDE 0.9% 500 ML IVPB SCH ×2 (08:23→20:16)
[2018-10-29] MEDS: ZINC SULFATE 220 MG CAP PO SCH (08:43)
[2018-10-29] MEDS: predniSONE 5 MG TAB PO SCH (08:43)
[2018-10-29 11:09] VITALS: BP 103/58; PULSE 120; RESP 18
[2018-10-29 15:54] VITALS: BP 109/59; PULSE 60; RESP 18
[2018-10-29 20:00] VITALS: BP 110/74; PULSE 116; RESP 18
[2018-10-29] MEDS: MESALAMINE 1000 MG SUPP PR SCH (20:16)
[2018-10-30] VITALS: BP 104/60; PULSE 102; RESP 17
[2018-10-30] MEDS: HYDROmorphONE 1 MG/ML SYG IV PRN ×5 (00:47→20:06)
[2018-10-30] MEDS: DIPHENHYDRAMINE 50 MG INJ IV PRN (01:50)
[2018-10-30 04:00] VITALS: BP 112/69; PULSE 98; RESP 18
[2018-10-30] MEDS: PANTOPRAZOLE (EC) 40 MG TAB PO SCH ×2 (05:44→18:04)
[2018-10-30] MEDS: HYOSCYAMINE 0.125 MG SUBL TAB PO SCH ×3 (05:44→21:37)
[2018-10-30] MEDS: MEROPENEM 1 GM/50ML(PMX) 50 ML IVPB SCH ×3 (05:44→23:17)
[2018-10-30 07:40] VITALS: BP 109/75; PULSE 115; RESP 19
[2018-10-30] MEDS: ZINC SULFATE 220 MG CAP PO SCH (08:27)
[2018-10-30] MEDS: predniSONE 5 MG TAB PO SCH (08:27)
[2018-10-30] MEDS: VANCOMYCIN HCL 1.75 GM in SOD CHLORIDE 0.9% 500 ML IVPB SCH ×2 (08:27→20:06)
[2018-10-30 11:21] VITALS: BP 108/68; PULSE 111; RESP 20
[2018-10-30] MEDS: HYDROCODONE/APAP (10/325) TAB PO PRN (11:51)
[2018-10-30 15:29] VITALS: BP 116/66; PULSE 117; RESP 20
[2018-10-30 20:00] VITALS: BP 105/71; PULSE 111; RESP 20
[2018-10-30] MEDS: MESALAMINE 1000 MG SUPP PR SCH (21:37)
[2018-10-31] VITALS: BP 103/68; PULSE 102; RESP 20
[2018-10-31] MEDS: HYDROmorphONE 1 MG/ML SYG IV PRN ×6 (00:35→21:59)
[2018-10-31] MEDS: HYDROCODONE/APAP (10/325) TAB PO PRN ×2 (03:15→23:38)
[2018-10-31] MEDS: PANTOPRAZOLE (EC) 40 MG TAB PO SCH ×2 (05:11→17:43)
[2018-10-31] MEDS: MEROPENEM 1 GM/50ML(PMX) 50 ML IVPB SCH ×3 (05:11→21:59)
[2018-10-31] MEDS: HYOSCYAMINE 0.125 MG SUBL TAB PO SCH (05:11)
[2018-10-31] MEDS ORDERED: METOPROLOL 5 MG INJ IV STA (06:22)
[2018-10-31] MEDS ORDERED: SOD CHLORIDE 0.9% 500 ML IV STA (06:22)
[2018-10-31] MEDS ORDERED: SOD CHLORIDE 0.9% 500 ML IV ONE (06:30)
[2018-10-31] MEDS ORDERED: METOPROLOL 5 MG INJ IV ONE (06:30)
[2018-10-31 07:15] VITALS: BP 97/63; PULSE 126; RESP 18
[2018-10-31] MEDS: ZINC SULFATE 220 MG CAP PO SCH (08:14)
[2018-10-31] MEDS: predniSONE 5 MG TAB PO SCH (08:14)
[2018-10-31] MEDS: VANCOMYCIN HCL 1.75 GM in SOD CHLORIDE 0.9% 500 ML IVPB SCH ×2 (08:14→22:13)
[2018-10-31] MEDS ORDERED: SOD CHLORIDE 0.9% 100 ML ONE (08:43)
[2018-10-31] MEDS ORDERED: IOHEXOL 300MG/ML 150 ML BTL ONE (08:43)
[2018-10-31] MEDS: ONDANSETRON 4 MG INJ IV PRN (09:08)
[2018-10-31 12:07] VITALS: BP 99/65; PULSE 130; RESP 18
[2018-10-31 15:38] VITALS: BP 101/63; PULSE 119
[2018-10-31 20:00] VITALS: BP 106/65; PULSE 117; RESP 19
[2018-10-31] MEDS: MESALAMINE 1000 MG SUPP PR SCH (21:59)
[2018-11-01] VITALS: BP 103/60; PULSE 107; RESP 18
[2018-11-01] MEDS: HYDROmorphONE 1 MG/ML SYG IV PRN ×5 (02:03→20:50)
[2018-11-01 03:55] VITALS: BP 103/68; PULSE 107; RESP 18
[2018-11-01] MEDS: PANTOPRAZOLE (EC) 40 MG TAB PO SCH ×3 (06:00→17:52)
[2018-11-01] MEDS: ONDANSETRON 4 MG INJ IV PRN ×3 (06:07→18:57)
[2018-11-01] MEDS: MEROPENEM 1 GM/50ML(PMX) 50 ML IVPB SCH ×3 (06:20→21:25)
[2018-11-01 07:37] VITALS: BP 98/64; PULSE 122; RESP 20
[2018-11-01] MEDS: predniSONE 5 MG TAB PO SCH (08:33)
[2018-11-01] MEDS: VANCOMYCIN HCL 1.75 GM in SOD CHLORIDE 0.9% 500 ML IVPB SCH ×2 (08:33→20:49)
[2018-11-01] MEDS: ZINC SULFATE 220 MG CAP PO SCH (08:33)
[2018-11-01 11:24] VITALS: BP 97/55; PULSE 137; RESP 20
[2018-11-01] MEDS: HYDROCODONE/APAP (10/325) TAB PO PRN (14:35)
[2018-11-01 15:35] VITALS: BP 99/70; PULSE 130; RESP 17
[2018-11-01 20:00] VITALS: BP 102/66; PULSE 118; RESP 18
[2018-11-01] MEDS: MESALAMINE 1000 MG SUPP PR SCH (20:49)
[2018-11-02] VITALS: BP 101/70; PULSE 105; RESP 20
[2018-11-02] MEDS: HYDROCODONE/APAP (7.5/325) TAB PO PRN ×2 (00:44→20:32)
[2018-11-02] MEDS: HYDROmorphONE 1 MG/ML SYG IV PRN ×4 (01:30→15:51)
[2018-11-02 04:00] VITALS: BP 99/62; PULSE 101; RESP 18
[2018-11-02] MEDS: PANTOPRAZOLE (EC) 40 MG TAB PO SCH ×2 (05:41→17:15)
[2018-11-02] MEDS: MEROPENEM 1 GM/50ML(PMX) 50 ML IVPB SCH ×3 (05:41→22:16)
[2018-11-02 08:02] VITALS: BP 108/71; PULSE 128; RESP 20
[2018-11-02] MEDS: ZINC SULFATE 220 MG CAP PO SCH (08:17)
[2018-11-02] MEDS: VANCOMYCIN HCL 1.75 GM in SOD CHLORIDE 0.9% 500 ML IVPB SCH ×2 (08:18→20:18)
[2018-11-02] MEDS: predniSONE 5 MG TAB PO SCH (08:18)
[2018-11-02 11:32] VITALS: BP 105/63; PULSE 125; RESP 20
[2018-11-02] MEDS ORDERED: LIDOCAINE 1% (MPF) 5 ML VIAL ONE (15:18)
[2018-11-02 16:05] VITALS: BP 98/125; PULSE 65; RESP 20
[2018-11-02 19:38] VITALS: BP 107/62; PULSE 127; RESP 18
[2018-11-02] MEDS: MESALAMINE 1000 MG SUPP PR SCH (20:18)
[2018-11-02] MEDS ORDERED: morphine 4 MG/ML VIAL IV ONE (22:27)
[2018-11-03] VITALS (7 sets, daily range): BP systolic 95–112; BP diastolic 59–68; PULSE 104–133; RESP 17–18
[2018-11-03] MEDS: HYDROCODONE/APAP (7.5/325) TAB PO PRN (03:50)
[2018-11-03] MEDS ORDERED: SOD CHLORIDE 0.9% 500 ML IV ONE (05:00)
[2018-11-03] MEDS: MEROPENEM 1 GM/50ML(PMX) 50 ML IVPB SCH ×2 (05:34→13:22)
[2018-11-03] MEDS: PANTOPRAZOLE (EC) 40 MG TAB PO SCH ×2 (05:34→17:40)
[2018-11-03] MEDS ORDERED: morphine 2 MG INJ IV ONE (06:41)
[2018-11-03] MEDS ORDERED: METOPROLOL 25 MG TAB PO ONE (07:00)
[2018-11-03] MEDS: VANCOMYCIN HCL 1.75 GM in SOD CHLORIDE 0.9% 500 ML IVPB SCH ×2 (09:02→20:08)
[2018-11-03] MEDS: ZINC SULFATE 220 MG CAP PO SCH (09:02)
[2018-11-03] MEDS: predniSONE 5 MG TAB PO SCH (09:02)
[2018-11-03] MEDS ORDERED: ZOLPIDEM 5 MG TAB PO PRN (11:00)
[2018-11-03] MEDS: BACLOFEN 10 MG TAB PO SCH ×3 (11:26→20:09)
[2018-11-03] MEDS: ACETAMINOPHEN 325 MG TAB PO PRN (16:49)
[2018-11-03] MEDS: MESALAMINE 1000 MG SUPP PR SCH (20:08)
[2018-11-03] MEDS: HYDROmorphONE 0.5 MG/0.5 ML SYG IV PRN (22:44)
[2018-11-04] VITALS (7 sets, daily range): BP systolic 102–119; BP diastolic 63–72; PULSE 72–125; RESP 18–20
[2018-11-04] MEDS ORDERED: METOPROLOL 25 MG TAB PO ONE (05:30)
[2018-11-04] MEDS: HYDROCODONE/APAP (7.5/325) TAB PO PRN ×4 (05:41→23:44)
[2018-11-04] MEDS: ONDANSETRON 4 MG INJ IV PRN (05:53)
[2018-11-04] MEDS: PANTOPRAZOLE (EC) 40 MG TAB PO SCH ×2 (06:05→18:05)
[2018-11-04] MEDS: ZINC SULFATE 220 MG CAP PO SCH (09:00)
[2018-11-04] MEDS: BACLOFEN 10 MG TAB PO SCH ×3 (09:00→21:00)
[2018-11-04] MEDS: predniSONE 5 MG TAB PO SCH (09:00)
[2018-11-04] MEDS: HYDROmorphONE 0.5 MG/0.5 ML SYG IV PRN (10:21)
[2018-11-04] MEDS: MESALAMINE 1000 MG SUPP PR SCH (21:00)
[2018-11-04] MEDS: ZOLPIDEM 5 MG TAB PO PRN (21:11)
[2018-11-05] MEDS: HYDROCODONE/APAP (7.5/325) TAB PO PRN ×2 (03:53→08:14)
[2018-11-05 04:00] VITALS: BP 109/74; PULSE 96; RESP 20
[2018-11-05] MEDS: PANTOPRAZOLE (EC) 40 MG TAB PO SCH ×2 (05:49→17:44)
[2018-11-05] MEDS: ONDANSETRON 4 MG INJ IV PRN (05:54)
[2018-11-05 07:30] VITALS: BP 107/73; PULSE 115; RESP 16
[2018-11-05] MEDS: BACLOFEN 10 MG TAB PO SCH ×3 (08:14→21:05)
[2018-11-05] MEDS: predniSONE 5 MG TAB PO SCH (08:14)
[2018-11-05] MEDS: ZINC SULFATE 220 MG CAP PO SCH (08:14)
[2018-11-05 11:38] VITALS: BP 111/74; PULSE 102; RESP 16
[2018-11-05] MEDS: morphine 2 MG INJ IV PRN (12:49)
[2018-11-05] MEDS: ONDANSETRON INJ 8 MG in SOD CHLORIDE 0.9% 50 ML IV PRN (12:49)
[2018-11-05] MEDS ORDERED: ONDANSETRON 4 MG INJ IV PRN (15:00)
[2018-11-05 20:14] VITALS: BP 109/73; PULSE 108; RESP 16
[2018-11-05] MEDS: MESALAMINE 1000 MG SUPP PR SCH (21:05)
[2018-11-05] MEDS: ZOLPIDEM 5 MG TAB PO PRN (21:08)
[2018-11-05 23:06] VITALS: BP 110/72; PULSE 105; RESP 16
[2018-11-06] MEDS: morphine 2 MG INJ IV PRN (00:53)
[2018-11-06 03:21] VITALS: BP 113/79; PULSE 109; RESP 16
[2018-11-06] MEDS: PANTOPRAZOLE (EC) 40 MG TAB PO SCH ×2 (05:51→17:00)
[2018-11-06] MEDS: HYDROCODONE/APAP (7.5/325) TAB PO PRN (05:52)
[2018-11-06 07:42] VITALS: BP 114/75; PULSE 110; RESP 20
[2018-11-06] MEDS: ZINC SULFATE 220 MG CAP PO SCH (08:48)
[2018-11-06] MEDS: predniSONE 5 MG TAB PO SCH (08:48)
[2018-11-06] MEDS: BACLOFEN 10 MG TAB PO SCH ×4 (08:49→20:28)
[2018-11-06] MEDS: HYDROmorphONE 0.5 MG/0.5 ML SYG IV PRN (08:50)
[2018-11-06] MEDS: ONDANSETRON INJ 8 MG in SOD CHLORIDE 0.9% 50 ML IV PRN (10:29)
[2018-11-06 11:44] VITALS: BP 121/76; PULSE 106; RESP 17
[2018-11-06] MEDS: ACETAMINOPHEN 325 MG TAB PO PRN ×2 (13:46→20:28)
[2018-11-06 15:34] VITALS: BP 110/74; PULSE 114; RESP 19
[2018-11-06 20:00] VITALS: BP 123/99; PULSE 108; RESP 16
[2018-11-06] MEDS: ZOLPIDEM 5 MG TAB PO PRN (20:28)
[2018-11-06] MEDS: MESALAMINE 1000 MG SUPP PR SCH (20:28)
[2018-11-07 00:37] VITALS: BP 113/67; PULSE 98; RESP 18
[2018-11-07] MEDS: DIPHENHYDRAMINE 50 MG INJ IV PRN (00:39)
[2018-11-07] MEDS: ACETAMINOPHEN 325 MG TAB PO PRN ×3 (04:22→21:49)
[2018-11-07 05:00] VITALS: BP 114/79; PULSE 127; RESP 18
[2018-11-07] MEDS: PANTOPRAZOLE (EC) 40 MG TAB PO SCH ×2 (05:46→17:09)
[2018-11-07] MEDS: ONDANSETRON INJ 8 MG in SOD CHLORIDE 0.9% 50 ML IV PRN (05:46)
[2018-11-07 07:34] VITALS: BP 104/75; PULSE 103; RESP 19
[2018-11-07] MEDS: ZINC SULFATE 220 MG CAP PO SCH (08:13)
[2018-11-07] MEDS: predniSONE 5 MG TAB PO SCH (08:13)
[2018-11-07] MEDS: BACLOFEN 10 MG TAB PO SCH ×3 (08:13→21:49)
[2018-11-07] MEDS: HYDROmorphONE 0.5 MG/0.5 ML SYG IV PRN (10:52)
[2018-11-07 11:43] VITALS: BP 103/72; PULSE 110; RESP 20
[2018-11-07 15:09] VITALS: BP 110/74; PULSE 112; RESP 21
[2018-11-07 20:00] VITALS: BP 112/78; PULSE 98; RESP 20
[2018-11-07] MEDS: MESALAMINE 1000 MG SUPP PR SCH (21:48)
[2018-11-07] MEDS: ZOLPIDEM 5 MG TAB PO PRN (21:49)
[2018-11-08] VITALS (7 sets, daily range): BP systolic 108–117; BP diastolic 78–87; PULSE 95–116; RESP 18–20
[2018-11-08] MEDS: PANTOPRAZOLE (EC) 40 MG TAB PO SCH ×2 (06:25→16:50)
[2018-11-08] MEDS: ACETAMINOPHEN 325 MG TAB PO PRN (06:25)
[2018-11-08] MEDS: ZINC SULFATE 220 MG CAP PO SCH (07:41)
[2018-11-08] MEDS: predniSONE 5 MG TAB PO SCH (07:41)
[2018-11-08] MEDS: BACLOFEN 10 MG TAB PO SCH ×3 (07:41→20:22)
[2018-11-08] MEDS ORDERED: LACTATED RINGER'S 500 ML IV ONE (12:30)
[2018-11-08] MEDS: HYDROmorphONE 0.5 MG/0.5 ML SYG IV PRN ×2 (16:50→22:04)
[2018-11-08] MEDS: ONDANSETRON INJ 8 MG in SOD CHLORIDE 0.9% 50 ML IV PRN (18:17)
[2018-11-08] MEDS: MESALAMINE 1000 MG SUPP PR SCH (20:22)
[2018-11-08] MEDS: ZOLPIDEM 5 MG TAB PO PRN (22:45)
[2018-11-09] MEDS: HYDROmorphONE 0.5 MG/0.5 ML SYG IV PRN ×4 (02:36→21:54)
[2018-11-09] MEDS: ONDANSETRON INJ 8 MG in SOD CHLORIDE 0.9% 50 ML IV PRN (03:18)
[2018-11-09 03:52] VITALS: BP 105/72; PULSE 115; RESP 18
[2018-11-09] MEDS: PANTOPRAZOLE (EC) 40 MG TAB PO SCH ×2 (05:33→17:05)
[2018-11-09] MEDS: METOCLOPRAMIDE 10 MG INJ IV PRN (06:47)
[2018-11-09 07:26] VITALS: BP 110/75; PULSE 140; RESP 19
[2018-11-09] MEDS: ZINC SULFATE 220 MG CAP PO SCH (08:30)
[2018-11-09] MEDS: predniSONE 5 MG TAB PO SCH (08:30)
[2018-11-09] MEDS: BACLOFEN 10 MG TAB PO SCH ×3 (08:30→21:26)
[2018-11-09] MEDS ORDERED: LACTATED RINGER'S 1,000 ML IV ONE (10:30)
[2018-11-09 11:13] VITALS: BP 104/67; PULSE 130; RESP 20
[2018-11-09] MEDS: ACETAMINOPHEN 325 MG TAB PO PRN (14:52)
[2018-11-09 15:33] VITALS: BP 112/67; PULSE 100; RESP 18
[2018-11-09 20:00] VITALS: BP 118/71; PULSE 99; RESP 19
[2018-11-09] MEDS: MESALAMINE 1000 MG SUPP PR SCH (21:26)
[2018-11-09] MEDS: ZOLPIDEM 5 MG TAB PO PRN (23:36)
[2018-11-10] VITALS (7 sets, daily range): BP systolic 108–157; BP diastolic 64–78; PULSE 82–115; RESP 16–19
[2018-11-10] MEDS: ACETAMINOPHEN 325 MG TAB PO PRN (03:39)
[2018-11-10] MEDS: PANTOPRAZOLE (EC) 40 MG TAB PO SCH ×2 (05:50→17:00)
[2018-11-10] MEDS: METOCLOPRAMIDE 10 MG INJ IV PRN (06:15)
[2018-11-10] MEDS ORDERED: HYDROmorphONE 1 MG/ML SYG IV ONE (07:00)
[2018-11-10] MEDS: predniSONE 5 MG TAB PO SCH (08:21)
[2018-11-10] MEDS: BACLOFEN 10 MG TAB PO SCH ×3 (08:21→20:28)
[2018-11-10] MEDS: ZINC SULFATE 220 MG CAP PO SCH (08:21)
[2018-11-10] MEDS: HYDROCODONE/APAP (5/325) TAB PO PRN ×3 (13:34→23:52)
[2018-11-10] MEDS: MESALAMINE 1000 MG SUPP PR SCH (20:28)
[2018-11-10] MEDS: ZOLPIDEM 5 MG TAB PO PRN (23:52)
[2018-11-11 00:31] VITALS: BP 110/78; PULSE 78; RESP 16
[2018-11-11 04:16] VITALS: BP 118/75; PULSE 105; RESP 18
[2018-11-11] MEDS: PANTOPRAZOLE (EC) 40 MG TAB PO SCH ×2 (05:49→17:07)
[2018-11-11 07:48] VITALS: BP 119/79; PULSE 122; RESP 18
[2018-11-11] MEDS: predniSONE 5 MG TAB PO SCH (08:17)
[2018-11-11] MEDS: ZINC SULFATE 220 MG CAP PO SCH (08:18)
[2018-11-11] MEDS: HYDROCODONE/APAP (5/325) TAB PO PRN (08:18)
[2018-11-11] MEDS: BACLOFEN 10 MG TAB PO SCH ×3 (08:18→20:41)
[2018-11-11] MEDS: HYDROmorphONE 0.5 MG/0.5 ML SYG IV PRN (10:58)
[2018-11-11 11:42] VITALS: BP 113/74; PULSE 104; RESP 18
[2018-11-11] MEDS: HYDROmorphONE 2 MG TAB PO PRN ×2 (15:43→20:42)
[2018-11-11] MEDS: MULTIVITAMINS THERAPEUTIC TAB PO SCH (17:07)
[2018-11-11 18:51] VITALS: BP 114/78; PULSE 113; RESP 18
[2018-11-11] MEDS: MESALAMINE 1000 MG SUPP PR SCH (20:42)
[2018-11-11] MEDS: ZOLPIDEM 5 MG TAB PO PRN (22:31)
[2018-11-11 22:51] VITALS: BP 116/78; PULSE 114; RESP 18
[2018-11-12] MEDS: HYDROmorphONE 2 MG TAB PO PRN ×3 (02:45→21:07)
[2018-11-12 03:56] VITALS: BP 114/79; PULSE 116; RESP 18
[2018-11-12] MEDS: PANTOPRAZOLE (EC) 40 MG TAB PO SCH ×2 (05:17→17:46)
[2018-11-12] MEDS: METOCLOPRAMIDE 10 MG INJ IV PRN (06:03)
[2018-11-12 08:07] VITALS: BP 120/76; PULSE 130; RESP 18
[2018-11-12] MEDS: MULTIVITAMINS THERAPEUTIC TAB PO SCH (09:10)
[2018-11-12] MEDS: BACLOFEN 10 MG TAB PO SCH ×3 (09:10→20:50)
[2018-11-12] MEDS: ZINC SULFATE 220 MG CAP PO SCH (09:11)
[2018-11-12] MEDS: predniSONE 5 MG TAB PO SCH (09:11)
[2018-11-12 12:44] VITALS: BP 111/76; PULSE 141; RESP 18
[2018-11-12 15:35] VITALS: BP 117/75; PULSE 118; RESP 18
[2018-11-12 20:00] VITALS: BP 118/78; PULSE 114; RESP 18
[2018-11-12] MEDS: MESALAMINE 1000 MG SUPP PR SCH (20:50)
[2018-11-12] MEDS: ZOLPIDEM 5 MG TAB PO PRN (23:20)
[2018-11-13] VITALS: BP 113/74; PULSE 102; RESP 18
[2018-11-13] MEDS: HYDROmorphONE 2 MG TAB PO PRN ×4 (03:35→19:19)
[2018-11-13 04:00] VITALS: BP 118/86; PULSE 101; RESP 18
[2018-11-13] MEDS: PANTOPRAZOLE (EC) 40 MG TAB PO SCH ×2 (05:43→17:40)
[2018-11-13] MEDS: HYOSCYAMINE 0.125 MG SUBL TAB PO PRN ×2 (05:55→17:40)
[2018-11-13] MEDS ORDERED: POTASSIUM CHLORIDE (SR) 20 MEQ TAB PO STA (07:02)
[2018-11-13 07:11] VITALS: BP 111/79; PULSE 119; RESP 18
[2018-11-13] MEDS: ZINC SULFATE 220 MG CAP PO SCH (08:55)
[2018-11-13] MEDS: predniSONE 5 MG TAB PO SCH (08:55)
[2018-11-13] MEDS: MULTIVITAMINS THERAPEUTIC TAB PO SCH (08:55)
[2018-11-13] MEDS: BACLOFEN 10 MG TAB PO SCH ×3 (08:55→20:57)
[2018-11-13 12:33] VITALS: BP 99/67; PULSE 152; RESP 18
[2018-11-13] MEDS: MESALAMINE 1000 MG SUPP PR SCH (20:57)
[2018-11-13 21:17] VITALS: BP 113/78; PULSE 113; RESP 18
[2018-11-13] MEDS: HYDROmorphONE 0.5 MG/0.5 ML SYG IV PRN (21:41)
[2018-11-13] MEDS: ZOLPIDEM 5 MG TAB PO PRN (23:04)
[2018-11-14] MEDS: DIPHENHYDRAMINE 50 MG INJ IV PRN (00:12)
[2018-11-14 00:40] VITALS: BP 116/72; PULSE 123; RESP 19
[2018-11-14] MEDS: HYDROmorphONE 0.5 MG/0.5 ML SYG IV PRN ×3 (02:30→10:43)
[2018-11-14 04:41] VITALS: BP 114/74; PULSE 124; RESP 19
[2018-11-14] MEDS: PANTOPRAZOLE (EC) 40 MG TAB PO SCH ×2 (05:30→18:35)
[2018-11-14 07:31] VITALS: BP 113/77; PULSE 136; RESP 20
[2018-11-14] MEDS: MULTIVITAMINS THERAPEUTIC TAB PO SCH (08:09)
[2018-11-14] MEDS: ZINC SULFATE 220 MG CAP PO SCH (08:09)
[2018-11-14] MEDS: BACLOFEN 10 MG TAB PO SCH ×3 (08:09→20:16)
[2018-11-14] MEDS: predniSONE 5 MG TAB PO SCH (08:09)
[2018-11-14] MEDS ORDERED: DIPHENHYDRAMINE 25 MG CAP PO PRN (11:30)
[2018-11-14 12:06] VITALS: BP 114/74; PULSE 139; RESP 20
[2018-11-14 15:49] VITALS: BP 111/75; PULSE 129; RESP 20
[2018-11-14] MEDS: HYDROmorphONE 2 MG TAB PO PRN ×2 (16:05→20:16)
[2018-11-14 19:40] VITALS: BP 127/72; PULSE 137; RESP 18
[2018-11-14] MEDS: MESALAMINE 1000 MG SUPP PR SCH (20:16)
[2018-11-14] MEDS: ZOLPIDEM 5 MG TAB PO PRN (21:27)
[2018-11-15] VITALS (8 sets, daily range): BP systolic 96–117; BP diastolic 22–86; PULSE 79–132; RESP 18–20
[2018-11-15] MEDS: HYDROmorphONE 2 MG TAB PO PRN ×6 (00:24→20:41)
[2018-11-15] MEDS: PANTOPRAZOLE (EC) 40 MG TAB PO SCH ×2 (05:15→17:38)
[2018-11-15] MEDS: ZINC SULFATE 220 MG CAP PO SCH (08:43)
[2018-11-15] MEDS: MULTIVITAMINS THERAPEUTIC TAB PO SCH (08:43)
[2018-11-15] MEDS: BACLOFEN 10 MG TAB PO SCH ×3 (08:44→20:18)
[2018-11-15] MEDS: predniSONE 5 MG TAB PO SCH (08:44)
[2018-11-15] MEDS: MESALAMINE 1000 MG SUPP PR SCH (20:19)
[2018-11-15] MEDS: ZOLPIDEM 5 MG TAB PO PRN (20:41)
[2018-11-16] MEDS: HYDROmorphONE 2 MG TAB PO PRN ×6 (00:38→23:48)
[2018-11-16 04:33] VITALS: BP 113/72; PULSE 110; RESP 18
[2018-11-16] MEDS: PANTOPRAZOLE (EC) 40 MG TAB PO SCH ×2 (06:36→17:28)
[2018-11-16] MEDS: predniSONE 5 MG TAB PO SCH (09:13)
[2018-11-16] MEDS: BACLOFEN 10 MG TAB PO SCH ×3 (09:13→21:13)
[2018-11-16] MEDS: MULTIVITAMINS THERAPEUTIC TAB PO SCH (09:13)
[2018-11-16] MEDS: ZINC SULFATE 220 MG CAP PO SCH (09:13)
[2018-11-16 11:21] VITALS: BP 120/70; PULSE 118; RESP 20
[2018-11-16] MEDS: HYDROmorphONE 0.5 MG/0.5 ML SYG IV PRN (14:10)
[2018-11-16 15:00] VITALS: BP 130/60; RESP 22
[2018-11-16 20:00] VITALS: BP 117/70; PULSE 111; RESP 20
[2018-11-16] MEDS: MESALAMINE 1000 MG SUPP PR SCH (21:12)
[2018-11-16 23:54] VITALS: BP 115/78; PULSE 117; RESP 18
[2018-11-17 04:00] VITALS: BP 116/75; PULSE 95; RESP 18
[2018-11-17] MEDS: PANTOPRAZOLE (EC) 40 MG TAB PO SCH (06:05)
[2018-11-17] MEDS: HYDROmorphONE 2 MG TAB PO PRN ×4 (06:07→15:27)
[2018-11-17 07:15] VITALS: BP 116/70; PULSE 105; RESP 18
[2018-11-17] MEDS: MULTIVITAMINS THERAPEUTIC TAB PO SCH (09:11)
[2018-11-17] MEDS: predniSONE 5 MG TAB PO SCH (09:11)
[2018-11-17] MEDS: BACLOFEN 10 MG TAB PO SCH ×2 (09:11→13:39)
[2018-11-17] MEDS: ZINC SULFATE 220 MG CAP PO SCH (09:11)
[2018-11-17 11:34] VITALS: BP 120/80; PULSE 140; RESP 18
[2018-11-17 16:16] VITALS: BP 125/79; PULSE 106; RESP 18
== END 2018-11-17 17:33 | DRG 329 ==
LOC: E/R 21:47 → PP2 10-10 00:23 → TEL 10-12 15:52 → ICU 10-13 09:45 → 6WM 10-15 13:43 → ICU 10-19 20:10 → 6WM 10-27 04:05
PROVIDERS: ADMIT Internal Medicine; ATTEND Hospitalist
PROC: 0DBB0ZZ Excision of Ileum, Open Approach (ICD-10-PCS; 2018-10-13)
PROC: 0D1B0Z4 Bypass Ileum to Cutaneous, Open Approach (ICD-10-PCS; 2018-10-13)
PROC: 30233K1 Transfusion of Nonautologous Frozen Plasma into Peripheral Vein, Percutaneous Approach (ICD-10-PCS; 2018-10-13)
PROC: 30233N1 Transfusion of Nonautologous Red Blood Cells into Peripheral Vein, Percutaneous Approach (ICD-10-PCS; 2018-10-13)
PROC: 0DTE0ZZ Resection of Large Intestine, Open Approach (ICD-10-PCS; principal; 2018-10-13 06:30)
PROC: 0W9B3ZZ Drainage of Left Pleural Cavity, Percutaneous Approach (ICD-10-PCS; 2018-11-02)
DX: K51.018 Ulcerative (chronic) pancolitis with other complication (principal); K63.1 Perforation of intestine (nontraumatic); A41.50 Gram-negative sepsis, unspecified; J90 Pleural effusion, not elsewhere classified; K63.2 Fistula of intestine; T81.41XA Infection following a procedure, superficial incisional surgical site, initial encounter; T81.32XA Disruption of internal operation (surgical) wound, not elsewhere classified, initial encounter; E87.1 Hypo-osmolality and hyponatremia; K92.1 Melena; E44.1 Mild protein-calorie malnutrition; D49.0 Neoplasm of unspecified behavior of digestive system; D12.5 Benign neoplasm of sigmoid colon; D50.0 Iron deficiency anemia secondary to blood loss (chronic); D47.3 Essential (hemorrhagic) thrombocythemia; R16.2 Hepatomegaly with splenomegaly, not elsewhere classified; K29.70 Gastritis, unspecified, without bleeding; R00.0 Tachycardia, unspecified; K62.89 Other specified diseases of anus and rectum; Z68.29 Body mass index [BMI] 29.0-29.9, adult
CPT/HCPCS: 36415; 36430; 36573; 36600; 71045; 71046; 71275; 74018; 74176; 74177; 76536; 76942; 80048; 80053; 80076; 80202; 81001; 81003; 82803; 83540; 83605; 83690; 83735; 84100; 84134; 84145; 84157; 84443; 84484; 85014; 85018; 85025; 85049; 85378; 85384; 85610; 85651; 85670; 85730; 86021; 86140; 86850; 86900; 86901; 86920; 87045; 87070; 87075; 87081; 87086; 87102; 87116; 87177; 87205; 88302; 88307; 88331; 93005; 93306; 96374; 97110; 97116; 97162; 97164; 97530; C9113; J0131; J0690; J1100; J1170; J1200; J1610; J1650; J1956; J2185; J2250; J2270; J2370; J2405; J2543; J2710; J2765; J2795; J2916; J2920; J2930; J3010; J3370; J3475; J3480; J7030; J7040; J7050; J7120; J7512; P9016; P9045; P9059; Q9967